=== PATIENT | female | born 1945 | race Caucasian/White ===

== ENCOUNTER → 2017-11-21 14:43 | Outpatient (CLI) | payer MEDICARE, OTHER, SELFPAY ==
[2017-11-21 15:10] LABS: Appearance Urine UA CLEAR; Bilirubin Urine UA NEGATIVE (NEGATIVE); Color Urine UA YELLOW; Glucose Urine UA NEGATIVE (Normal); Ketones Urine UA NEGATIVE (NEGATIVE); Leukocyte Esterase Urine UA 2+ (NEGATIVE); Nitrite Urine UA NEGATIVE (Negative); Occult Blood Urine UA 3+ (Negative); Protein Urine UA NEGATIVE (Negative); Specific Gravity Urine UA <=1.005 (1.000-1.035); Urobilinogen Urine UA 0.2 E.U./dL (0.2); pH Urine UA 5.5 (4.5-8.0)
[2017-11-21 15:25] LABS: Bacteria Urine Few (2-10); Culture Indicated Urine Specimen Cultured; RBC Urine 0-1/HPF (0-5/HPF); Squamous Epithelial Cell Urine 0-1 /HPF; WBC Urine 5-10/HPF (0-5/HPF)
== END ==
PROVIDERS: PCP Family Medicine; Visit Provider Family Medicine
DX: R30.0 Dysuria (principal)
CPT/HCPCS: 81001; 87077; 87086; 87186

== ENCOUNTER → 2018-02-23 15:38 | Outpatient (CLI) | payer MEDICARE, OTHER, SELFPAY ==
[2018-02-23 15:50] LABS: Bacteria Urine None Seen; RBC Urine None Seen (0-5/HPF); WBC Urine None Seen (0-5/HPF)
[2018-02-23 16:07] LABS: Add Manual Diff / Slide Review NO; Basophils Absolute Auto 100 /uL (0-100); Basophils Percent Auto 1.2 % (0-2); Eosinophils Absolute Auto 200 /uL (0-450); Eosinophils Percent Auto 2.8 % (2-4); Hematocrit 45.6 % (36-46); Hemoglobin 15.5 g/dL (12.0-16.0); Lymphocytes Absolute Auto 2400 /uL (1100-4500); Lymphocytes Percent Auto 28.5 % (25-40); Mean Corpuscular HGB Conc 33.9 % (30-36); Mean Corpuscular Hemoglobin 31.8 PG (26-34); Mean Corpuscular Volume 93.9 fL (80-100); Monocytes Absolute Auto 800 /uL (0-900); Monocytes Percent Auto 9.2 % (3-14); Neutrophils Absolute Auto 4800 /uL (1500-7000); Neutrophils Percent Auto 58.3 % (50-75); Platelet Count 251 X10^3/uL (150-400); Red Blood Cell Count 4.86 X10^6/uL (4.0-5.2); Red Cell Distribution Width 13.8 % (11.6-14.8); White Blood Cell Count 8.3 X10^3/uL (4.5-11.0)
[2018-02-23 16:19] LABS: Hemoglobin A1C% w Est Avg Glu 6.7 % (4.0-6.0)
[2018-02-23 16:32] LABS: Appearance Urine UA CLEAR; Bilirubin Urine UA NEGATIVE (NEGATIVE); Color Urine UA YELLOW; Glucose Urine UA NEGATIVE (Negative); Ketones Urine UA TRACE (NEGATIVE); Leukocyte Esterase Urine UA NEGATIVE (NEGATIVE); Nitrite Urine UA NEGATIVE (Negative); Occult Blood Urine UA NEGATIVE (Negative); Protein Urine UA TRACE (Negative); Specific Gravity Urine UA >=1.030 (1.000-1.035); Urobilinogen Urine UA 0.2 E.U./dL (0.2)
[2018-02-23 16:37] LABS: Blood Urea Nitrogen 24 mg/dL (7-17); Calcium 9.7 mg/dL (8.4-10.2); Carbon Dioxide 25 mmol/L (22-32); Chloride 104 mmol/L (98-107); Cholesterol 186 mg/dL (140-199); Estimated Glomerular Filt Rate > 60.0 mL/min (>60); Glucose 130 mg/dL (80-110); HDL Cholesterol 81 mg/dL (40-60); HEMOLYSIS < 15 (0-50); LDL Cholesterol Calculated 62 mg/dL (<100); Potassium 4.8 mmol/L (3.4-5.1); Sodium 138 mmol/L (137-145); Triglycerides 217 mg/dL (35-150)
[2018-02-23 16:54] LABS: Culture Indicated Urine Cult Not Indicated; Mucus Urine 2+ (Negative); Squamous Epithelial Cell Urine 5-10 /HPF
[2018-02-23 17:08] LABS: TSH w/ Reflex to FT4 0.53 uIU/mL (0.47-4.68)
== END ==
PROVIDERS: PCP Family Medicine; Visit Provider Family Medicine
DX: E03.9 Hypothyroidism, unspecified (principal); E78.5 Hyperlipidemia, unspecified; I10 Essential (primary) hypertension; E66.01 Morbid (severe) obesity due to excess calories; Z68.41 Body mass index [BMI] 40.0-44.9, adult; E11.8 Type 2 diabetes mellitus with unspecified complications
CPT/HCPCS: 36415; 80048; 80061; 81001; 83036; 84443; 85025

== ENCOUNTER → 2018-03-09 09:50 | Outpatient (CLI) | payer MEDICARE, OTHER, SELFPAY ==
--- NOTE | 2018-03-09 | DI.MRI.S_ITS ---
PROCEDURE: MR KNEE LT WO CON INDICATIONS: PRIMARY OSTEOARTHRITIS LEFT KNEE TECHNIQUE: Noncontrast sagittal PD fast spin echo and T2 fast spin echo with fat saturation, sagittal 3-D FLASH with fat saturation; coronal T1 spin echo and PD fast spin echo with fat saturation, and axial PD fast spin echo with fat saturation through the knee. COMPARISON: [facility], CR, CHEST 2 VIEW, 01/13/2011, 13:12. [facility], CR, XR KNEE ARTHRITIC SERIES BI, 02/22/2018, 10:38. FINDINGS: Image quality: Excellent. Menisci: There is a large defect in the body of the lateral meniscus likely related to prior meniscectomy. There is a small degenerative tear involving the free edge of the body of the medial meniscus. The meniscal root ligaments appear intact. Cruciate ligaments: The anterior and posterior cruciate ligaments appear intact. Medial structures: The medial collateral ligament appears intact. The semimembranosus tendon insertions and meniscocapsular junction appear intact. Visualized portions of the pes anserinus tendons appear normal. No abnormal bursal fluid. Lateral structures: The lateral collateral ligament and the biceps femoris tendon appear intact. The popliteus tendon appears normal. Iliotibial band appears normal. Anterior structures: The quadriceps and patellar tendons appear intact. Patellar alignment is normal. No femoral trochlear dysplasia or ventral trochlear prominence. No edema in the infrapatellar fat pad. Bones and cartilage: There is red marrow conversion contusion and distal femur and proximal tibia. No fractures. There is severe cartilage loss in the lateral femorotibial compartment and the patellofemoral compartment, as well as mild cartilage thinning and fibrillation of the medial femorotibial compartment. Joint space: There is small to moderate knee joint effusion. No Georges's cyst. Normal appearing synovial plicae are incidentally noted. IMPRESSION: 1. A large defect in the body of the lateral meniscus, likely related to prior meniscectomy. 2. Small degenerative tear involving the free edge of the body of the medial meniscus. 3. Severe cartilage loss of the lateral femorotibial compartment and patellofemoral compartment. 4. Small to moderate knee joint effusion. 5. There is red marrow conversion. This finding may be secondary to anemia. Please correlate clinically. Dictated by: Georges Louise M.D. on 03/09/2018 at 11:06 Transcribed by: CHRIS on 03/09/2018 at 11:13 Approved by: Georges Louise M.D. on 03/09/2018 at 18:20
--- NOTE | 2018-03-09 09:52 | DI.RAD.S_ITS ---
PROCEDURE: XR CHEST 2V INDICATIONS: shortness of breath TECHNIQUE: 2 views of the chest were acquired. COMPARISON: [facility], , CHEST 2 VIEW, 01/13/2011, 13:12. FINDINGS: Surgical changes and devices: None. Lungs and pleura: Lungs are clear. No pleural effusions or pneumothorax. Mediastinum: Mediastinal contours are normal. Heart size is normal. Bones and chest wall: No suspicious bony abnormalities. Soft tissues appear unremarkable. IMPRESSION: No acute cardiopulmonary disease. Dictated by: Georges Louise M.D. on 03/09/2018 at 16:01 Approved by: Georges Louise M.D. on 03/09/2018 at 16:01
== END ==
PROVIDERS: PCP Family Medicine; Visit Provider Orthopaedic Surgery
DX: M17.12 Unilateral primary osteoarthritis, left knee (principal); M23.232 Derangement of other medial meniscus due to old tear or injury, left knee; M25.462 Effusion, left knee; R06.00 Dyspnea, unspecified; R06.02 Shortness of breath
CPT/HCPCS: 71046; 73721

== ENCOUNTER → 2018-04-17 13:58 | Outpatient (CLI) | payer MEDICARE, OTHER, SELFPAY ==
--- NOTE | 2018-04-17 14:01 | DI.MG.S_ITS ---
BILATERAL DIGITAL SCREENING MAMMOGRAM 3D/2D WITH CAD POST LUMPECTOMY: 04/17/2018 CLINICAL: Routine screening. Personal history of breast cancer. Comparison is made to exams dated: 05/25/2017 mammogram, 01/14/2017 mammogram, 12/21/2016 mammogram, 12/28/2012 mammogram, 10/13/2010 mammogram, and 09/22/2009 mammogram - [facility]. The tissue of both breasts is heterogeneously dense. This may lower the sensitivity of mammography. Current study was also evaluated with a Computer Aided Detection (CAD) system. There are benign postoperative and posttreatment findings in the right breast. There is a 0.5 cm oval mass in the right breast at posterior depth central to the nipple that demonstrates a fatty hilum on tomosynthesis images consistent with a lymph node, and is stable in appearance to comparison exam of 10/13/2010. No significant masses, calcifications, or other findings are seen in either breast. There has been no significant interval change. IMPRESSION: There is no mammographic evidence of malignancy. A 1 year screening mammogram is recommended. This exam was interpreted at Station ID: [id number]. NOTE: For mammograms, a report in lay terms will be sent to the patient. Approximately 15% of breast malignancies will not be visualized mammographically. In the management of a palpable breast mass, a negative mammogram must not discourage biopsy of a clinically suspicious lesion. Electronically Signed By: Markie Whitehead M.D. ecl/:04/17/2018 23:12:33 copy to: Colleen Cleveland letter sent: Normal Exam ACR BI-RADS Category 2: Benign Finding(s) 3342F
== END ==
PROVIDERS: PCP Family Medicine; Visit Provider Family Medicine
DX: Z12.31 Encounter for screening mammogram for malignant neoplasm of breast (principal); Z85.3 Personal history of malignant neoplasm of breast
CPT/HCPCS: 77063; 77067

== ENCOUNTER 2018-05-16 08:42 | Inpatient (IN) | payer MEDICARE, OTHER, SELFPAY ==
[2018-05-08 12:51] VITALS: BMI 42.5
[2018-05-16] VITALS (19 sets, daily range): BP systolic 122–175; BP diastolic 52–93; PULSE 54–84; RESP 9–18; TEMP 35.8–36.6; O2SAT 88–100; BMI 42.5
--- NOTE | 2018-05-16 06:00 | DI.RAD.S_ITS ---
PROCEDURE: XR KNEE LT 1TO2V INDICATIONS: prosthesis placement, total left knee TECHNIQUE: 2 view(s) of the knee acquired. COMPARISON: [facility], ROSIE, KNEE 3V LEFT, 12/27/2014, 18:08. [facility], ROSIE, KNEE 1-2 VIEWS RIGHT, 12/09/2008, 9:44. FINDINGS: Bones: Patient is status post knee joint arthroplasty. Hardware components are in expected positions. Visualized bony structures are intact. Soft tissues: Overlying postoperative changes are noted. IMPRESSION: Normal alignment after left total knee arthroplasty. Dictated by: Navin Jaffe M.D. on 05/16/2018 at 14:28 Approved by: Navin Jaffe M.D. on 05/16/2018 at 14:29
[2018-05-16] MEDS: CELECOXIB 200 MG CAPSULE PO (08:59)
[2018-05-16] MEDS: LACTATED RINGERS 1,000 ML 42 ML IV ×2 (08:59→12:16)
[2018-05-16] MEDS: ACETAMINOPHEN 325 MG TABLET 975 MG PO ×3 (08:59→20:52)
[2018-05-16] MEDS: VANCOMYCIN 1,000 MG/200 ML FROZ.PIGGY 200 MG IV (09:27)
--- NOTE | 2018-05-16 10:25 | PM.PREOP ---
Pre-operative Note Interval Note History & Physical reviewed/Exam performed by Physician: Yes Changes to H&P: No
--- NOTE | 2018-05-16 10:25 | PM.OP.1 ---
Operative Date/Time/Diagnoses Date of procedure: 05/16/18 Time of procedure: 10:26 Pre-op diagnosis: left knee OA Post-op diagnosis: same Procedure & Clinicians Procedure: Left total knee replacement Same procedure as scheduled: Yes Indications: The patient has had progressively worsening left knee pain with radiographic changes consistent with arthritis. Non-operative management has failed and the patient has requested total knee replacement. The risks, benefits and alternatives to surgery were discussed with the patient prior to proceeding. Risks discussed included, but were not limited to, failure to relieve pain, stiffness, infection, nerve damage, deep venous thrombosis, pulmonary embolism, stroke, coma, heart attack, permanent paralysis and , as well as the potential need for eventual revision of the prosthetic. Surgeon: Phyllis Flores Trouble Shooting Mechanic: Nara Castano Anesthesia Type: General and Spinal Operative Notes Findings: Severe left knee osteoarthritis, good stability Closure Type: primary Specimen(s): none sent Prosthetic devices, grafts, tissues, transplants, or devices: Flores and Nephew size 3 femur, size 2 tibia, size +9 poly, 32 by 7-1/2 mm patella Applied: drain(s) Estimated Blood Loss (mL): 250 Blood products transfused: none Tourniquet time (min): 82 Procedure in detail: The patient was seen in the pre-operative area, where the patient identified the left knee as the operative site and this was marked with my initials. The patient received pre-operative antibiotics, and was taken to the operating room and placed on the operative table in the supine position. After satisfactory anesthesia, a time study technologist out was performed. The left leg was encircled with a tourniquet about the proximal thigh, and the leg was prepared from the toes to the tourniquet with ChloroPrep in the usual fashion and draped through sterile drapes. The leg was elevated and exsanguinated with Eschmark bandage and the tourniquet inflated to [250] mmHg pressure. The knee was approached through an approximately 18 cm incision centered over the patella and carried into the knee through a medial parapatellar arthrotomy. A Portion of the medial and lateral meniscus was resected. Soft tissue was carefully mobilized around the patella the patella was measured with a caliper. Bone was resected from the patella and the patellar height was reconstituted with up an appropriate sized patellar component. A cover was then placed on the patella. A small amount of additional medial and lateral meniscus was resected. The visionare guide fit well to the distal femur. It looked like an appropriate distal femoral cut and the cut was made without difficulty. The rotation was assessed and the appropriate size femoral guide was placed on the distal femur and finishing cuts were made. There was no evidence of notching. The anterior, posterior and chamfer cuts were then made. The posterior osteophytes and soft tissues were then removed. The posterior capsule was injected with part of a mixture of 60 ml 0.25% Marcaine mixed with 20 ml Exparel for post operative pain control. The remainder of this mixture was injected into the capsule and subcutaneous tissues during cement curing. The tibia was prepared and the visionaire guide fit well to the distal tibia. The rotation was assessed. The patient was placed in extension residual medial and lateral meniscus as well as any residual bone was carefully resected. [No] additional tibia was resected. Hemostasis was achieved especially posteriorly. Additional local was injected into the posterior capsule. The extension gap was assessed and additional releases for gap balancing were performed as necessary. The femoral component was trial was placed and the notch was finished. Trial tibial and femoral components were then placed and the knee placed through a range of motion. Range of motion was [0-130], with good stability throughout the range. The trials were then removed, and the tibia was finished. The bone was prepared with pulsatile lavage, and dried with a sponge. Cement was applied and the final prosthetics placed. Excess cement was removed during and after cement curing. A brief Betadine soak was performed. After confirming there was no extruded cement posteriorly, the final tibial insert was placed. The knee was copiously irrigated and the tourniquet deflated. Hemostasis was obtained with the bovie. A drain was placed and brought out superolaterally. The capsule was closed with interrupted Vicryl suture. The subcutaneous layer was closed with barbed sutures, and the skin with a running 3-0 V-Lock suture and Surgical glue. An Oliva dressing was applied and the patient was taken to recovery having tolerated the procedure well. Complications: none Condition: stable Disposition: Acute Care Plan for aftercare: The patient will be maintained on a standard total knee replacement protocol with weight bearing as tolerated. The patient will receive aspirin and sequential compression devices for DVT prophylaxis. The patient will be discharged home when safe for the home environment.
[2018-05-16] MEDS: CEFAZOLIN 2 GM/100 ML FROZ.PIGGY IV ×2 (10:56→19:48)
--- NOTE | 2018-05-16 11:28 | SUR.OPER ---
Supine on padded OR bed. Pillow under head, arms secured on padded armboards <90 degree abduction. Safety belt across torso. Non-operative leg secured with tape over blanket over lower leg. Operative leg secured in DeMayo/Tong positioner. Foam padded brace at thigh of operative leg.
[2018-05-16] MEDS: BUPIVACAINE 0.25% W/ EPI 30 ML VIAL 60 ML INJ (11:37)
[2018-05-16] MEDS: BUPIVACAINE LIPOSOME 266 MG/20 ML VIAL INJ (11:39)
[2018-05-16] MEDS: TRANEXAMIC ACID 1,000 MG VIAL 1000 MG INJ ×2 (11:40→12:46)
[2018-05-16] MEDS: POVIDONE-IODINE 15 ML, SODIUM CHLORIDE 0.9% 250 ML TOP (11:41)
--- NOTE | 2018-05-16 14:11 | SUR.PHASEI ---
Report called to Ronna
--- NOTE | 2018-05-16 14:25 | SUR.PHASEI ---
Pt transferred to the floor on 1lo2 by nc, with belongings bag. Report given to Ronna. VS stable. IV saline locked. Dressings and drain checked with RN. Family present.
[2018-05-16] MEDS: LACTATED RINGERS 1,000 ML 125 ML IV (15:25)
[2018-05-16] MEDS: OXYCODONE IR 5 MG TABLET PO (16:23)
[2018-05-16] MEDS: GABAPENTIN 600 MG TABLET PO ×2 (17:21→20:54)
[2018-05-16] MEDS: METFORMIN HCL 500 MG TABLET 250 MG PO (17:21)
[2018-05-16] MEDS: hydrOXYzine pamoate 25 MG CAPSULE PO (17:32)
--- NOTE | 2018-05-16 17:38 | PT.IIE ---
Current Diagnoses Unilateral primary osteoarthritis, left knee (05/16/18) Surgery Performed Operation Date: 05/16/18 10:45 Actual Procedures p Total Knee Arthroplasty(Left) - Phyllis Flores MD Surgical History (Last Reviewed 05/11/18 @ 20:18 by Sharyn Cleveland MD) History of arthroplasty of right knee (Acute) History of arthroscopy of both knees (Acute) History of lumpectomy of right breast (Acute) Hx of appendectomy (Acute) Hx of eye surgery (Acute ~07/2015) Hx of oophorectomy (Acute) Hx of tonsillectomy (Acute) Status post Mohs surgery (Acute) Status post bilateral cataract extraction (Acute ~2014) Status post surgery (09/17/16) Medical History (Last Reviewed 05/11/18 @ 20:18 by Sharyn Cleveland MD) Idiopathic peripheral autonomic neuropathy, unspecified (Chronic 08/28/10) GERD (gastroesophageal reflux disease) (Chronic 08/28/10) Colon polyps (Resolved 08/28/10) Endometrial hyperplasia (Resolved) Ductal carcinoma in situ (DCIS) of right breast (Resolved) Hyperlipidemia (Chronic 08/28/10) Acquired hypothyroidism (Chronic 08/28/10) 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) Essential hypertension (Chronic 11/25/14) Morbid obesity with body mass index (BMI) of 40.0 to 44.9 in adult (Chronic 11/25/14) Back pain (Acute) Chronic bronchitis (Acute) Former smoker, stopped smoking many years ago (Acute) History of hysteroscopy (Acute) Ovarian cyst (Acute) Peripheral edema (Acute) Peripheral neuropathy (Acute) KENNA (stress urinary incontinence, female) (Acute) Sciatica (Acute) Physical Therapy Inpatient Evaluation/Re-Eval M1 PT/OT-IP Prior Functional Status Start: 05/16/18 16:56 Freq: NEEDED Status: Active Protocol: Document 05/16/18 17:20 JEANNETTE (Rec: 05/16/18 17:38 JEANNETTE [id number]) Medical Review Prior Functional Status Medical History Reviewed Yes Diet/Fluid Consistency Regular Communication Oriented x 3 Mobility and Gait Indep with ability to amb > a block with the use of FWW. Single fall in the last six months due to missed steps Activities of Daily Living and IADL's Indep Social History Household Members spouse Living Arrangements Apartment/Condo Number of Stairs To Enter/Railing? Single step with no rail Home Equipment Front Wheel Walker Straight Cane Bedside Commode Employment Status Retired M2 PT-IP Current Condition Start: 05/16/18 16:56 Freq: NEEDED Status: Active Protocol: Document 05/16/18 17:20 EA (Rec: 05/16/18 17:38 EA [id number]) Physical Therapy Current Condition Current Condition Evaluation Date 05/16/18 Treatment Diagnosis s/p L TKA 05/16/18 Onset Date 05/16/18 Weight Bearing Status Weight Bearing Status Weight Bear as Tolerated M3 PT-IP Subjective Start: 05/16/18 16:56 Freq: NEEDED Status: Active Protocol: Document 05/16/18 17:20 EA (Rec: 05/16/18 17:38 EA [id number]) Subjective Physical Therapy Visit Type Type Initial Evaluation Visit Start Time 16:45 Visit Stop Time 17:30 Total Visit Minutes 45 Physical Therapy Visit Comments Patient Comments Patient reports would like to stay initially at SNF as her requires help due to PD condition; states her friend from other states will come over and help her on 05/25. Patient Goals Patient would like to get as much as independent at least prior to discharge. Therapy Pain Assessment Pain When Pain Assessed At Rest Pain Present Pain Present Pain Reported Location Left Knee Intensity 2 Scale Used Numeric (1 - 10) Description Acute M4 PT-IP Mobility and Gait Start: 05/16/18 16:56 Freq: NEEDED Status: Active Protocol: Document 05/16/18 17:20 EA (Rec: 05/16/18 17:38 EA [id number]) PT-Bed Mobility Assessment Supine to Sit Supine to Sit Minimal Assistance Sit to Supine Sit to Supine Minimal Assistance Scooting Scooting to Edge of Bed Contact Guard Assistance PT-Transfer Assessment Sit to and From Stand Sit to and from Stand Minimal Assistance Equipment Transfer Assistive Device Gait Belt Front Wheeled Walker Transfers Transfer Destination Bed Chair Transfer Technique stepping Transfer Ability Level of Assist Minimal Assistance Comments Mobility Comments Requires verbal cues during transfer. Gait Assessment Gait Gait Assistance Required: Contact Guard Assist Distance (Feet) 10 Able to Maintain Weight Bearing Status Yes During Gait Assistive Devices Assistive Device Front Wheeled Walker Orthotic/Prosthetic Devices or Brace: No Gait Deviations General Gait Pattern Antalgic Step-to Gait Factors Limiting Gait Function Factors Limiting Gait Function Decreased Activity Tolerance Decreased Strength Limited Range of Motion Pain Comments Gait Comments Requires cues for proper gait (3pnt pattern) PT-Balance Assessment Sitting Balance and Reactions Static Sitting Balance Ability Good Dynamic Sitting Balance Ability Good Standing Balance and Reactions Static Standing Balance Ability Good Dynamic Standing Balance Ability Fair M5 PT-IP Objective Assessments Start: 05/16/18 16:56 Freq: NEEDED Status: Active Protocol: Document 05/16/18 17:20 EA (Rec: 05/16/18 17:38 EA [id number]) Orientation Orientation/Cognition Level of Alertness Alert Orientation Name Age Language Function Ability No Deficits Noted Safety Awareness Understands Safety Issues Memory Description No Deficits Noted Gross Range of Motion Upper Extremity ROM Assessment Within Functional Limits Lower Extremity ROM Assessment Left Impaired Impairments at least 0-90 F/E on left knee Strength Upper Extremity Strength Assessment Within Functional Limits Wrist R wrist w/ CTS Lower Extremity Strength Assessment Left Impaired Knee Left knee with at least 3-/5 flexion/extension Coordination Assessment Gross Coordination Gross Coordination WNL Assessment Finger to Nose Test Normal Performance Pronation/Supination Test Normal Performance Sensation Assessment Sensation Gross Sensation WNL Muscle Tone Comments Muscle Tone Comments Muscle guarding to left quads and hamstring M6 PT-IP Treatment Start: 05/16/18 16:56 Freq: NEEDED Status: Active Protocol: Document 05/16/18 17:20 EA (Rec: 05/16/18 17:38 EA [id number]) Physical Therapy Treatment Exercises Exercises Ankle Pumps Gluteal Sets Quad Sets Heel Slides Straight Leg Raises Short Arc Quads Passive Knee Extension Hang Seated Knee Flexion/Extension Education Education Provided Precautions Weight Bearing Status Post-Op Packet Safety M7 PT-IP Assessment and Plan Start: 05/16/18 16:56 Freq: NEEDED Status: Active Protocol: Document 05/16/18 17:20 EA (Rec: 05/16/18 17:38 EA [id number]) PT Summary Assessment and Plan Potential Rehabilitation Potential Good Status of Condition at Evaluation Stable Summary Impairments Pain ROM Strength Balance Bed Mobility Transfers Gait Activity Tolerance Assessment Summary Pt demonstrates difficulty with transfers and mobility due to decreased tolerance, left knee pain, and decreased strength to left LLE. Patient requires assistance in all functional transfers and mobility for safety at this time. She would greatly benefit to skilled PT prior to discharge in SNF. Goals Bed Mobility Goal Independent Transfer Goal Independent Gait Goal Standby Assistance Gait Distance 50 Days to Meet Goals 3 Frequency of Treatment Frequency Of Treatment Twice a Day Treatment Plan Physical Therapy Treatment Plan Bed Mobility Training Transfer Training Gait Training Therapeutic Exercise Post Op Education Discharge Planning Hot or Cold Pack Recommendations To Nursing Amount of Assist Needed 1 Person Assist Discharge Recommendations PT Discharge Recommendations SNF Rehab
--- NOTE | 2018-05-16 18:33 | PC.NURSE ---
Evening Shift Note: Pt received laying in bed, sleeping but easily arousable. Pt complained of pain in L leg, 3-4/10. Given 5 mg oxycodone, also complaining of itching, given 25 mg po vistiril. Pt with CMS intact in LLE. Able to lift leg off of bed. Pt able to stand and transfer to commode, then walked across room with PT to chair. Pt now sitting up in chair, tolerating carb consistent diet. Pt voiding adequate volume. Will continue to monitor, notify MD with changes.
[2018-05-16] MEDS: DOCUSATE 100 MG CAPSULE PO (20:54)
[2018-05-16] MEDS: ASCORBIC ACID 500 MG TABLET PO (20:54)
[2018-05-16] MEDS: ASPIRIN EC 81 MG TABLET PO (20:54)
[2018-05-17] VITALS (7 sets, daily range): BP systolic 121–162; BP diastolic 47–88; PULSE 67–80; RESP 16–20; TEMP 36.3–36.8; O2SAT 92–97
[2018-05-17] MEDS: LACTATED RINGERS 1,000 ML 125 ML IV (03:20)
[2018-05-17] MEDS: CEFAZOLIN 2 GM/100 ML FROZ.PIGGY IV (03:20)
[2018-05-17] MEDS: hydrOXYzine pamoate 25 MG CAPSULE PO (03:27)
[2018-05-17] MEDS: OXYCODONE IR 5 MG TABLET PO ×5 (03:27→17:50)
[2018-05-17 05:51] LABS: Hematocrit 37.1 % (36-46); Hemoglobin 12.8 g/dL (12.0-16.0)
[2018-05-17] MEDS: LEVOTHYROXINE 112 MCG TABLET PO (07:13)
--- NOTE | 2018-05-17 07:28 | PM.PNPO.1 ---
Subjective Date Patient Seen: 05/17/18 Time Patient Seen: 07:29 Interval history: Patient's pain is moderate. Denies fever chills. No nausea vomiting. She denies shortness of breath or chest pain. She was up yesterday with physical therapy once walking in the room for short period of time. she has been using bedside commode. Exam Vital Signs (past 8 hours): - 05/16/18 23:50 05/17/18 00:00 05/17/18 03:46 Temperature 97.6 F Pulse Rate 63 Respiratory Rate 16 Blood Pressure 150/74 H Pulse Oximetry 97 96 97 05/17/18 04:30 Temperature 97.5 F L Pulse Rate 67 Respiratory Rate 16 Blood Pressure 161/82 H Pulse Oximetry 94 Oxygen Delivery Method Room Air Oxygen Flow Rate 0 Narrative Exam Narrative: Oliva dressing is on and functioning. Dressing is clean, dry and intact. Sensation grossly intact to light touch distal lower extremities. Motor functions intact. Legs are warm and dry. Objective Labs Result Diagrams: 05/17/18 05:27 Labs: Laboratory Results - last 24 hr 05/17/18 05:27 Hgb 12.8 Hct 37.1 Assessment & Plan Post-op Postoperative Procedures Operation Date: 05/16/18 10:45 Actual Procedures Side Surgeon p Total Knee Arthroplasty Left Phyllis Flores MD postop day 1 status post left total knee arthroplasty. Patient progressing as expected. mobilize with physical therapy. Quality VTE Deep Vein Thrombosis/Pulmonary Embolism Present on Admission: No
[2018-05-17] MEDS: AMLODIPINE 5 MG TABLET PO (08:02)
[2018-05-17] MEDS: DULOXETINE 30 MG CAPSULE 60 MG PO (08:02)
[2018-05-17] MEDS: ACETAMINOPHEN 325 MG TABLET 975 MG PO ×3 (08:02→20:30)
[2018-05-17] MEDS: MELOXICAM 7.5 MG TABLET 15 MG PO (08:02)
[2018-05-17] MEDS: METFORMIN HCL 500 MG TABLET 250 MG PO ×2 (08:03→16:17)
[2018-05-17] MEDS: ASPIRIN EC 81 MG TABLET PO ×2 (08:03→20:31)
[2018-05-17] MEDS: ASCORBIC ACID 500 MG TABLET PO ×2 (08:03→20:31)
[2018-05-17] MEDS: DOCUSATE 100 MG CAPSULE PO ×2 (08:03→20:31)
[2018-05-17] MEDS: GABAPENTIN 600 MG TABLET PO ×4 (08:03→20:31)
--- NOTE | 2018-05-17 11:30 | PT.IPTN ---
Current Diagnoses Unilateral primary osteoarthritis, left knee (05/16/18) Surgery Performed Operation Date: 05/16/18 10:45 Actual Procedures p Total Knee Arthroplasty(Left) - Phyllis Flores MD Physical Therapy Treatment Note M2 PT-IP Current Condition Start: 05/16/18 16:56 Freq: NEEDED Status: Active Protocol: Document 05/16/18 17:20 EA (Rec: 05/16/18 17:38 EA [id number]) Physical Therapy Current Condition Current Condition Evaluation Date 05/16/18 Treatment Diagnosis s/p L TKA 05/16/18 Onset Date 05/16/18 Weight Bearing Status Weight Bearing Status Weight Bear as Tolerated M3 PT-IP Subjective Start: 05/16/18 16:56 Freq: NEEDED Status: Active Protocol: Document 05/17/18 11:09 SA (Rec: 05/17/18 11:30 SA [id number]) Subjective Physical Therapy Visit Type Type Treatment Note Visit Start Time 09:05 Visit Stop Time 09:36 Total Visit Minutes 31 Number of [place] PAINTER Visits 1 Physical Therapy Visit Comments Patient Comments Pt notes increased pain today, had pain meds 1hour before PT with pt rating pain at rest as 3/10. Agreeable to PT this AM. Therapy Pain Assessment Pain When Pain Assessed During Mobility Pain Present Pain Present Pain Reported Location Left Knee Intensity 7 Scale Used Numeric (1 - 10) Description Acute M4 PT-IP Mobility and Gait Start: 05/16/18 16:56 Freq: NEEDED Status: Active Protocol: Document 05/17/18 11:09 SA (Rec: 05/17/18 11:30 SA [id number]) PT-Transfer Assessment Sit to and From Stand Sit to and from Stand Contact Guard Assistance Equipment Transfer Assistive Device Gait Belt Front Wheeled Walker Orthotic/Prosthetic Devices or Brace: No Transfers Transfer Destination Chair Toilet Transfer Technique Stand Step Pivot Transfer Ability Level of Assist Contact Guard Assistance 1 Person Assistance Comments Mobility Comments Sit to stands and transfers with CGA and use of FWW safely , cues to increase WBing through LLE. Gait Assessment Gait Gait Assistance Required: Contact Guard Assist Distance (Feet) 30 Able to Maintain Weight Bearing Status Yes During Gait Assistive Devices Assistive Device Gait Belt Front Wheeled Walker Orthotic/Prosthetic Devices or Brace: No Gait Deviations General Gait Pattern Antalgic Decreased Stride Length Decreased Feet Clearance Factors Limiting Gait Function Factors Limiting Gait Function Decreased Activity Tolerance Decreased Strength Limited Range of Motion Pain Comments Gait Comments PT limits WBing through LLE and WBs heavily through UEs, able to partially correct wit hcues but needs increased practice to improve gait. PT-Balance Assessment Sitting Balance and Reactions Static Sitting Balance Ability Good Dynamic Sitting Balance Ability Good M5 PT-IP Objective Assessments Start: 05/16/18 16:56 Freq: NEEDED Status: Active Protocol: Document 05/16/18 17:20 EA (Rec: 05/16/18 17:38 EA [id number]) Orientation Orientation/Cognition Level of Alertness Alert Orientation Name Age Language Function Ability No Deficits Noted Safety Awareness Understands Safety Issues Memory Description No Deficits Noted Gross Range of Motion Upper Extremity ROM Assessment Within Functional Limits Lower Extremity ROM Assessment Left Impaired Impairments at least 0-90 F/E on left knee Strength Upper Extremity Strength Assessment Within Functional Limits Wrist R wrist w/ CTS Lower Extremity Strength Assessment Left Impaired Knee Left knee with at least 3-/5 flexion/extension Coordination Assessment Gross Coordination Gross Coordination WNL Assessment Finger to Nose Test Normal Performance Pronation/Supination Test Normal Performance Sensation Assessment Sensation Gross Sensation WNL Muscle Tone Comments Muscle Tone Comments Muscle guarding to left quads and hamstring M6 PT-IP Treatment Start: 05/16/18 16:56 Freq: NEEDED Status: Active Protocol: Document 05/17/18 11:09 SA (Rec: 05/17/18 11:30 SA [id number]) Physical Therapy Treatment Exercises Exercises Ankle Pumps Gluteal Sets Quad Sets Heel Slides Straight Leg Raises Short Arc Quads Passive Knee Extension Hang Seated Knee Flexion/Extension Education Education Provided Precautions Weight Bearing Status Post-Op Packet Safety M7 PT-IP Assessment and Plan Start: 05/16/18 16:56 Freq: NEEDED Status: Active Protocol: Document 05/17/18 11:09 SA (Rec: 05/17/18 11:30 SA [id number]) PT Summary Assessment and Plan Potential Rehabilitation Potential Good Status of Condition at Evaluation Stable Summary Assessment Summary Pt with increased knee pain today but improving gait and transfer ability and uses FWW safely. Plan to attempt single step this afternoon. Goals Days to Meet Goals 3 Frequency of Treatment Frequency Of Treatment Twice a Day Treatment Plan Physical Therapy Treatment Plan Bed Mobility Training Transfer Training Gait Training Therapeutic Exercise Post Op Education Discharge Planning Hot or Cold Pack Recommendations To Nursing Amount of Assist Needed 1 Person Assist Discharge Recommendations PT Discharge Recommendations SNF Rehab
[2018-05-17] MEDS: SENNOSIDES 8.6 MG TABLET PO ×2 (11:42→20:30)
--- NOTE | 2018-05-17 13:37 | CM.DANOTE ---
Discharge Planning/Care Management: DCP: assessment: case received and discussed in Team Rounds. Met now with pt and her Randy. Introduced self and role. Pt is a 72 year old female who admitted yesterday for a planned TKA. Surgeon: Dr. Flores PCP: Dr. Ponce. She says she had the other knee done years ago and both were very painful. Payer: Medicare and [facility] INPT admission status: confirmed by KYUNG Meek. Pt states she is planning a snf rehab stay before she goes home and the orthopedic team is aware of this. She states she needs to be functionally independent with basic abilities before she returns home as her has Parkinson's disease and is unable to assist her. SNF choice list: given: decision: [facility]: referral: [facility] via vm and efax...will await reponse. P: [facility] when stable for same 05/19 or> Need: [facility] will follow Discharge Assessment Start: 05/17/18 13:35 Freq: Status: Active Protocol: Document 05/17/18 13:35 ITV (Rec: 05/17/18 13:37 ITV [id number]) Discharge Planning Assessment Advance Directives? No: Information mailed to patient History Provided By Patient Medical Record Prior Living Arrangements Apartment/Condo Household Members spouse Comment spouse has Parkinson's disease Independent with ADL's Yes: limited by knee pain Is patient alert and oriented? Yes If patient plan is SNF: Has PASSR been will complete prior to dc completed? Comment INPT admission status/ confirmed by KYUNG Meek: 05/16 Medicare Choice List Provided Yes SNF/HH Preference [facility] Has Agency SNF been contacted Yes Whiteboard Updated in Patient Room with Yes name and ext. # of Underground Mine Superintendent Review Status In Process Next Review Type Continued Stay Review Pre-Anesthesia Assessment Start: 05/08/18 12:51 Freq: Status: Complete Protocol: Document 05/08/18 12:51 CAB (Rec: 05/08/18 13:44 CAB [id number]) Pre-Anesthesia Assessment Patient Information Reviewed Via Phone Assessment Assessment Completed With Patient Diagnostic Results BMP/CMP CBC Primary Care Provider Ingrid Ponce Seen Specialist in Last 12 Months Yes Specialist Seen Oncologist Orthopedist Other Comment Neuro surgeon Primary Language [place] Merchandise Distributor Required No Height 161.29 cm Weight 110.677 kg Body Mass Index (BMI) 42.5 Hearing Ability Normal Visual Assist Magnifying Glass Dentition Type Teeth, Natural Present Barriers to Learning None Other Aids No Hx Anesthesia Reactions Yes: Occasional nausea, vomiting post-op Hx Family Anesthesia Reaction No Hx Malignant Hyperthermia No Hx Blood Transfusions No Anesthesia Review Requested No Grinder Operator External Tool Yes: has parkinson's, pt wants to dc to snf alcohol intake current alcohol intake frequency a few times a month Smoking Status Former smoker Tobacco type cigarettes how long ago did patient quit smoking Quit 1976 Substance Use Type does not use Pain Present Pain Reported Musculoskeletal Symptoms Abnormal Gait Back Pain Difficulty Walking Joint Pain Muscle Cramps Muscle Weakness Numbness History of Falling (Recent or History of Yes ) Patient is completely paralyzed or No completely immobile Prosthesis or Orthotic Device Cane Front Wheel Walker Mental Status Oriented to own ability Is patient on oxygen? No Does patient have PATTERSON/SOB Yes: A little w/activity, no sob when in pool Hx Sleep Apnea No Currently Taking a Beta Sly No Can You Climb a Flight of Stairs Without No SOB Hx Chest Pain No Hx SOB Yes: A little w/activity, no sob when in pool Hx Syncope or Dizziness No Anti-Coagulant Therapy No Has a Apprentice Plant Attendant No Cardiac Testing No Hx Pacemaker/ICD No Pacemaker Rep Required? No Cardiac Clearance Received Not Applicable Diet Type At Home Regular Diabetic dysphagia No Bladder Pattern Incontinent Urgency Urinary Catheter Present No Hx Urinary Self Catheterization No Diabetes Yes: Does not check blood sugars at home HgbA1C 6.7 Date 02/23/18 Patient No Lactating No Hx Drug Resistant Organism No Presence of External or Internal Medical Yes: Hardware in right knee Devices Have you traveled outside the [facility] in the last 30 days? Marital Status Lives With spouse Prior Living Arrangements Apartment/Condo Support System Friend(s) Spouse Patient Discharge Plan Description Senior Living Facility/Rehab Comment has parkinson's Feels Safe in Current Environment Yes Been Physically Hurt or Threatened By a No Person in Current Environment Do you have thoughts of harming yourself None or others? Are you currently considering suicide? No Do you have a plan to hurt yourself or No Plan others? Do You Have Any Spiritual Beliefs That No May Affect Your HC Choices? Do You Have Any Cultural Practices That No May Affect Your HC Choices? Comment Episcopal Who Can We Speak to About Patient's Care Family, friends Identifying Code for Release of Patient Declines to issue Information Health Care Proxy/Next of Kin Shaggy ()Ronna ( daughter) Health Care Proxy Phone Number Shaggy: [phone], Ronna: [phone] Emergency Contact Name Shaggy ()Ronna ( daughter) Emergency Contact Phone Number Shaggy: [phone], Ronna: Advance Directives? No: Information mailed to patient Requested Patient Bring Advanced Yes Directives DOS PAC Instructions Do not shave/clip surgical site Durable medical equipment Medications to take/avoid Nasal antibiotic No ETOH/petroleum product on skin DOS NPO Post-op transportation Pre-surgical wash Sturdy shoes/comfortable clothes Do not bring valuables and remove jewelry
--- NOTE | 2018-05-17 14:27 | PT.IPTN ---
Current Diagnoses Unilateral primary osteoarthritis, left knee (05/16/18) Surgery Performed Operation Date: 05/16/18 10:45 Actual Procedures p Total Knee Arthroplasty(Left) - Phyllis Flores MD Physical Therapy Treatment Note M2 PT-IP Current Condition Start: 05/16/18 16:56 Freq: NEEDED Status: Active Protocol: Document 05/16/18 17:20 EA (Rec: 05/16/18 17:38 EA [id number]) Physical Therapy Current Condition Current Condition Evaluation Date 05/16/18 Treatment Diagnosis s/p L TKA 05/16/18 Onset Date 05/16/18 Weight Bearing Status Weight Bearing Status Weight Bear as Tolerated M3 PT-IP Subjective Start: 05/16/18 16:56 Freq: NEEDED Status: Active Protocol: Document 05/17/18 14:18 SA (Rec: 05/17/18 14:27 SA [id number]) Subjective Physical Therapy Visit Type Type Treatment Note Visit Start Time 13:15 Visit Stop Time 13:45 Total Visit Minutes 30 Number of RECORD CENTER COORDINATOR Visits 2 Physical Therapy Visit Comments Patient Comments Feeling a little better this afternoon. Patient Goals To d/c SNF for continued rehab prior to returning home to care for with Parkinsons. Therapy Pain Assessment Pain When Pain Assessed During Mobility Pain Present Pain Present Pain Reported Location Left Knee Intensity 6 Scale Used Numeric (1 - 10) Description Acute Pain Management Techniques Apply Cold Re-positioning Timing of Activity with Medications M4 PT-IP Mobility and Gait Start: 05/16/18 16:56 Freq: NEEDED Status: Active Protocol: Document 05/17/18 14:18 SA (Rec: 05/17/18 14:27 SA [id number]) PT-Bed Mobility Assessment Sit to Supine Sit to Supine Contact Guard Assistance Scooting Scooting to Edge of Bed Standby Assistance Scooting Up and Down in Bed Standby Assistance PT-Transfer Assessment Sit to and From Stand Sit to and from Stand Contact Guard Assistance Equipment Transfer Assistive Device Gait Belt Front Wheeled Walker Orthotic/Prosthetic Devices or Brace: No Transfers Transfer Destination Bed Bedside Commode Transfer Technique Stand Step Pivot Transfer Ability Level of Assist Contact Guard Assistance 1 Person Assistance Comments Mobility Comments Pt able to clear LLE over EOB for sit to supine with use of gait belt around foot, SBA with cues. CGA with transfers and FWW. NSG removed drain prior to PT session. Gait Assessment Gait Gait Assistance Required: Contact Guard Assist Distance (Feet) 50 Able to Maintain Weight Bearing Status Yes During Gait Assistive Devices Assistive Device Gait Belt Front Wheeled Walker Orthotic/Prosthetic Devices or Brace: No Gait Deviations General Gait Pattern Antalgic Decreased Stride Length Decreased Feet Clearance Factors Limiting Gait Function Factors Limiting Gait Function Decreased Activity Tolerance Decreased Strength Limited Range of Motion Pain Comments Gait Comments PT with slow, antalgic gait and limited WBing through LLE. Cues for upright posture and decreased UE WBing. Fatigues rapidly. Stair Climbing Assessment Evaluation Level of Assist On Stairs Contact Guard Assistance Devices Stair Climbing Assistive Devices Front Wheel Walker Technique/Endurance Stair Climbing Direction Ascend and Descend Stair Climbing Technique Step to Step Number of Steps Climbed 1 Query Text: Stair Climbing Set # Repetitions (reps) 1 Comments Stair Climbing Comments Pt able to ascend/descend singel step with FWW and CGA, cues for safe technique. PT-Balance Assessment Sitting Balance and Reactions Static Sitting Balance Ability Good Dynamic Sitting Balance Ability Good M5 PT-IP Objective Assessments Start: 05/16/18 16:56 Freq: NEEDED Status: Active Protocol: Document 05/16/18 17:20 EA (Rec: 05/16/18 17:38 EA [id number]) Orientation Orientation/Cognition Level of Alertness Alert Orientation Name Age Language Function Ability No Deficits Noted Safety Awareness Understands Safety Issues Memory Description No Deficits Noted Gross Range of Motion Upper Extremity ROM Assessment Within Functional Limits Lower Extremity ROM Assessment Left Impaired Impairments at least 0-90 F/E on left knee Strength Upper Extremity Strength Assessment Within Functional Limits Wrist R wrist w/ CTS Lower Extremity Strength Assessment Left Impaired Knee Left knee with at least 3-/5 flexion/extension Coordination Assessment Gross Coordination Gross Coordination WNL Assessment Finger to Nose Test Normal Performance Pronation/Supination Test Normal Performance Sensation Assessment Sensation Gross Sensation WNL Muscle Tone Comments Muscle Tone Comments Muscle guarding to left quads and hamstring M6 PT-IP Treatment Start: 05/16/18 16:56 Freq: NEEDED Status: Active Protocol: Document 05/17/18 14:18 SA (Rec: 05/17/18 14:27 SA [id number]) Physical Therapy Treatment Exercises Exercises Ankle Pumps Quad Sets Heel Slides Short Arc Quads Seated Knee Flexion/Extension Education Education Provided Precautions Weight Bearing Status Post-Op Packet Safety M7 PT-IP Assessment and Plan Start: 05/16/18 16:56 Freq: NEEDED Status: Active Protocol: Document 05/17/18 14:18 SA (Rec: 05/17/18 14:27 SA [id number]) PT Summary Assessment and Plan Potential Rehabilitation Potential Good Status of Condition at Evaluation Stable Summary Assessment Summary Pt able to manage single step with CGA and use of FWW, fatigues rapidly with ambulation and needs cues for posture and normalizing gait. Frequency of Treatment Frequency Of Treatment Twice a Day Treatment Plan Physical Therapy Treatment Plan Bed Mobility Training Transfer Training Gait Training Therapeutic Exercise Post Op Education Discharge Planning Hot or Cold Pack Recommendations To Nursing Amount of Assist Needed 1 Person Assist Discharge Recommendations PT Discharge Recommendations SNF Rehab
[2018-05-17] MEDS: OXYCODONE IR 5 MG TABLET 10 MG PO (20:30)
[2018-05-18 01:25] VITALS: BP 135/64; PULSE 73; RESP 16; TEMP 36.9; O2SAT 100
[2018-05-18] MEDS: OXYCODONE IR 5 MG TABLET PO ×5 (01:52→19:39)
[2018-05-18 06:04] VITALS: BP 156/64; PULSE 78; RESP 18; TEMP 37.2; O2SAT 93
[2018-05-18] MEDS: LEVOTHYROXINE 112 MCG TABLET PO (06:19)
[2018-05-18 07:45] VITALS: O2SAT 95
[2018-05-18 08:00] VITALS: BP 136/68; PULSE 84; RESP 16; TEMP 37.8; O2SAT 94
[2018-05-18] MEDS: DULOXETINE 30 MG CAPSULE 60 MG PO (08:19)
[2018-05-18] MEDS: METFORMIN HCL 500 MG TABLET 250 MG PO ×2 (08:20→16:44)
[2018-05-18] MEDS: AMLODIPINE 5 MG TABLET PO (08:20)
[2018-05-18] MEDS: ASPIRIN EC 81 MG TABLET PO ×2 (08:20→20:35)
[2018-05-18] MEDS: DOCUSATE 100 MG CAPSULE PO ×2 (08:20→20:35)
[2018-05-18] MEDS: ASCORBIC ACID 500 MG TABLET PO ×2 (08:21→20:35)
[2018-05-18] MEDS: ACETAMINOPHEN 325 MG TABLET 975 MG PO ×3 (08:21→20:34)
[2018-05-18] MEDS: MELOXICAM 7.5 MG TABLET 15 MG PO (08:21)
[2018-05-18] MEDS: GABAPENTIN 600 MG TABLET PO ×4 (08:21→20:35)
[2018-05-18] MEDS: SENNOSIDES 8.6 MG TABLET PO ×2 (08:22→20:35)
[2018-05-18] MEDS: POLYETHYLENE GLYCOL 3350 17 GM POWD.PACK PO (08:23)
--- NOTE | 2018-05-18 10:16 | PM.PNPO.1 ---
Subjective Date Patient Seen: 05/18/18 Time Patient Seen: 10:17 Interval history: Hospital day 3, postop day 2 following left total knee arthroplasty. patient remained stable postoperatively. Did do well with PT yesterday. Having some increased pain today. patient is anticipating going to SNF. Her is at home but has Parkinson's and dementia and not able to care for her. Exam Vital Signs (past 8 hours): - 05/18/18 06:04 05/18/18 08:00 Temperature 99 F 100.1 F H Pulse Rate 78 84 Respiratory Rate 18 16 Blood Pressure 156/64 H 136/68 Pulse Oximetry 93 94 Oxygen Delivery Method Room Air Oxygen Flow Rate 0 Narrative Exam Narrative: Alert, oriented no acute distress sitting in chair. Legs. Deandre wrap and dressing to left knee is dry without drainage or inflammation. Hemovac is out. no calf pain or swelling. Pulses symmetrical. Objective Labs Result Diagrams: 05/17/18 05:27 Assessment & Plan Post-op Postoperative Procedures Operation Date: 05/16/18 10:45 Actual Procedures Side Surgeon p Total Knee Arthroplasty Left Phyllis Flores MD Plan: Patient will work with PT again today. will also start OT. Anticipate discharge to [facility] tomorrow if she is stable. Quality VTE Deep Vein Thrombosis/Pulmonary Embolism Present on Admission: No
--- NOTE | 2018-05-18 10:43 | CM.DPC ---
DCP: continued: [facility] has confirmed they do have a bed for pt and will hold it for her in anticipation of likely d/c tomorrow. Will update pt. Discussed in Team Rounds with virgilio Parra: OT order is obtained.
[2018-05-18] MEDS: OXYCODONE IR 5 MG TABLET 10 MG PO ×2 (11:28→23:40)
--- NOTE | 2018-05-18 12:08 | PT.IPTN ---
Current Diagnoses Unilateral primary osteoarthritis, left knee (05/16/18) Surgery Performed Operation Date: 05/16/18 10:45 Actual Procedures p Total Knee Arthroplasty(Left) - Phyllis Flores MD Physical Therapy Treatment Note M2 PT-IP Current Condition Start: 05/16/18 16:56 Freq: NEEDED Status: Active Protocol: Document 05/16/18 17:20 EA (Rec: 05/16/18 17:38 EA [id number]) Physical Therapy Current Condition Current Condition Evaluation Date 05/16/18 Treatment Diagnosis s/p L TKA 05/16/18 Onset Date 05/16/18 Weight Bearing Status Weight Bearing Status Weight Bear as Tolerated M3 PT-IP Subjective Start: 05/16/18 16:56 Freq: NEEDED Status: Active Protocol: Document 05/18/18 11:59 SA (Rec: 05/18/18 12:08 SA [id number]) Subjective Physical Therapy Visit Type Type Treatment Note Visit Start Time 09:19 Visit Stop Time 09:44 Total Visit Minutes 25 Number of SUPERVISOR DRY CLEANING Visits 3 Physical Therapy Visit Comments Patient Comments Pt reports feeling sore and stiff this AM. Patient Goals To d/c SNF for continued rehab prior to returning home to care for with Parkinsons. Therapy Pain Assessment Pain When Pain Assessed During Mobility Pain Present Pain Present Pain Reported Location Left Knee Intensity 6 Scale Used Numeric (1 - 10) Description Acute Pain Management Techniques Apply Cold Re-positioning Timing of Activity with Medications M4 PT-IP Mobility and Gait Start: 05/16/18 16:56 Freq: NEEDED Status: Active Protocol: Document 05/18/18 11:59 SA (Rec: 05/18/18 12:08 SA [id number]) PT-Bed Mobility Assessment Sit to Supine Sit to Supine Contact Guard Assistance Scooting Scooting to Edge of Bed Standby Assistance Scooting Up and Down in Bed Standby Assistance PT-Transfer Assessment Sit to and From Stand Sit to and from Stand Standby Assistance Equipment Transfer Assistive Device Gait Belt Front Wheeled Walker Orthotic/Prosthetic Devices or Brace: No Transfers Transfer Destination Chair Transfer Technique Stand Step Pivot Transfer Ability Level of Assist Standby Assistance 1 Person Assistance Comments Mobility Comments Pt SBA-CGA with mobility tasks and FWW, slow gaurded movements. Gait Assessment Gait Gait Assistance Required: Contact Guard Assist Distance (Feet) 65 Able to Maintain Weight Bearing Status Yes During Gait Assistive Devices Assistive Device Gait Belt Front Wheeled Walker Orthotic/Prosthetic Devices or Brace: No Gait Deviations General Gait Pattern Antalgic Decreased Stride Length Decreased Feet Clearance Factors Limiting Gait Function Factors Limiting Gait Function Decreased Activity Tolerance Decreased Strength Limited Range of Motion Pain Comments Gait Comments Pt continues to limit LLE WBing with step to gait pattern and WBs heavily through UEs. Pain is limiting factor. Stair Climbing Assessment Evaluation Level of Assist On Stairs Contact Guard Assistance Devices Stair Climbing Assistive Devices Front Wheel Walker Technique/Endurance Stair Climbing Direction Ascend and Descend Stair Climbing Technique Step to Step Number of Steps Climbed 1 Query Text: Stair Climbing Set # Repetitions (reps) 1 Comments Stair Climbing Comments Pt able to manage single step with CGA. PT-Balance Assessment Sitting Balance and Reactions Static Sitting Balance Ability Good Dynamic Sitting Balance Ability Good M5 PT-IP Objective Assessments Start: 05/16/18 16:56 Freq: NEEDED Status: Active Protocol: Document 05/16/18 17:20 EA (Rec: 05/16/18 17:38 EA [id number]) Orientation Orientation/Cognition Level of Alertness Alert Orientation Name Age Language Function Ability No Deficits Noted Safety Awareness Understands Safety Issues Memory Description No Deficits Noted Gross Range of Motion Upper Extremity ROM Assessment Within Functional Limits Lower Extremity ROM Assessment Left Impaired Impairments at least 0-90 F/E on left knee Strength Upper Extremity Strength Assessment Within Functional Limits Wrist R wrist w/ CTS Lower Extremity Strength Assessment Left Impaired Knee Left knee with at least 3-/5 flexion/extension Coordination Assessment Gross Coordination Gross Coordination WNL Assessment Finger to Nose Test Normal Performance Pronation/Supination Test Normal Performance Sensation Assessment Sensation Gross Sensation WNL Muscle Tone Comments Muscle Tone Comments Muscle guarding to left quads and hamstring M6 PT-IP Treatment Start: 05/16/18 16:56 Freq: NEEDED Status: Active Protocol: Document 05/18/18 11:59 SA (Rec: 05/18/18 12:08 SA [id number]) Physical Therapy Treatment Exercises Exercises Ankle Pumps Quad Sets Heel Slides Short Arc Quads Seated Knee Flexion/Extension Education Education Provided Precautions Weight Bearing Status Post-Op Packet Safety M7 PT-IP Assessment and Plan Start: 05/16/18 16:56 Freq: NEEDED Status: Active Protocol: Document 05/18/18 11:59 SA (Rec: 05/18/18 12:08 SA [id number]) PT Summary Assessment and Plan Potential Rehabilitation Potential Good Status of Condition at Evaluation Stable Summary Assessment Summary Pt continues with high pain levels during mobility and fatigues rapidly with ambulation. Frequency of Treatment Frequency Of Treatment Twice a Day Treatment Plan Physical Therapy Treatment Plan Bed Mobility Training Transfer Training Gait Training Therapeutic Exercise Post Op Education Discharge Planning Hot or Cold Pack Recommendations To Nursing Amount of Assist Needed 1 Person Assist Discharge Recommendations PT Discharge Recommendations SNF Rehab
--- NOTE | 2018-05-18 15:21 | PT.IPTN ---
Current Diagnoses Unilateral primary osteoarthritis, left knee (05/16/18) Surgery Performed Operation Date: 05/16/18 10:45 Actual Procedures p Total Knee Arthroplasty(Left) - Phyllis Flores MD Physical Therapy Treatment Note M2 PT-IP Current Condition Start: 05/16/18 16:56 Freq: NEEDED Status: Active Protocol: Document 05/16/18 17:20 EA (Rec: 05/16/18 17:38 EA [id number]) Physical Therapy Current Condition Current Condition Evaluation Date 05/16/18 Treatment Diagnosis s/p L TKA 05/16/18 Onset Date 05/16/18 Weight Bearing Status Weight Bearing Status Weight Bear as Tolerated M3 PT-IP Subjective Start: 05/16/18 16:56 Freq: NEEDED Status: Active Protocol: Document 05/18/18 15:15 SA (Rec: 05/18/18 15:21 SA [id number]) Subjective Physical Therapy Visit Type Type Treatment Note Visit Start Time 14:56 Visit Stop Time 15:16 Total Visit Minutes 20 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 Patient Goals To d/c SNF for continued rehab prior to returning home to care for with Parkinsons. Therapy Pain Assessment Pain When Pain Assessed During Mobility Pain Present Pain Present Pain Reported Location Left Knee Intensity 5 Scale Used Numeric (1 - 10) Description Acute Pain Management Techniques Apply Cold Re-positioning Timing of Activity with Medications M4 PT-IP Mobility and Gait Start: 05/16/18 16:56 Freq: NEEDED Status: Active Protocol: Document 05/18/18 15:15 SA (Rec: 05/18/18 15:21 SA [id number]) PT-Bed Mobility Assessment Supine to Sit Supine to Sit Contact Guard Assistance Sit to Supine Sit to Supine Standby Assistance Scooting Scooting to Edge of Bed Standby Assistance Scooting Up and Down in Bed Standby Assistance PT-Transfer Assessment Sit to and From Stand Sit to and from Stand Standby Assistance Equipment Transfer Assistive Device Gait Belt Front Wheeled Walker Orthotic/Prosthetic Devices or Brace: No Transfers Transfer Destination Bed Toilet Transfer Technique Stand Step Pivot Transfer Ability Level of Assist Standby Assistance 1 Person Assistance Comments Mobility Comments Stand pivot txs on/off toilet with SBA and FWW. Pt SBA-CGA with bed mobility and use of gait belt to assist clearing LLE over EOB during Sup<>sit transitions. Gait Assessment Gait Gait Assistance Required: Contact Guard Assist Distance (Feet) 85 Able to Maintain Weight Bearing Status Yes During Gait Assistive Devices Assistive Device Gait Belt Front Wheeled Walker Orthotic/Prosthetic Devices or Brace: No Gait Deviations General Gait Pattern Antalgic Decreased Stride Length Decreased Feet Clearance Factors Limiting Gait Function Factors Limiting Gait Function Decreased Activity Tolerance Decreased Strength Limited Range of Motion Pain Comments Gait Comments Improved gait this afternoon with longer step lengths and heel strike, pt still fatigues rapidly and l knee pain is limiting gait distance. Stair Climbing Assessment Evaluation Level of Assist On Stairs Contact Guard Assistance Devices Stair Climbing Assistive Devices Front Wheel Walker PT-Balance Assessment Sitting Balance and Reactions Static Sitting Balance Ability Good Dynamic Sitting Balance Ability Good M5 PT-IP Objective Assessments Start: 05/16/18 16:56 Freq: NEEDED Status: Active Protocol: Document 05/16/18 17:20 EA (Rec: 05/16/18 17:38 EA [id number]) Orientation Orientation/Cognition Level of Alertness Alert Orientation Name Age Language Function Ability No Deficits Noted Safety Awareness Understands Safety Issues Memory Description No Deficits Noted Gross Range of Motion Upper Extremity ROM Assessment Within Functional Limits Lower Extremity ROM Assessment Left Impaired Impairments at least 0-90 F/E on left knee Strength Upper Extremity Strength Assessment Within Functional Limits Wrist R wrist w/ CTS Lower Extremity Strength Assessment Left Impaired Knee Left knee with at least 3-/5 flexion/extension Coordination Assessment Gross Coordination Gross Coordination WNL Assessment Finger to Nose Test Normal Performance Pronation/Supination Test Normal Performance Sensation Assessment Sensation Gross Sensation WNL Muscle Tone Comments Muscle Tone Comments Muscle guarding to left quads and hamstring M6 PT-IP Treatment Start: 05/16/18 16:56 Freq: NEEDED Status: Active Protocol: Document 05/18/18 15:15 SA (Rec: 05/18/18 15:21 SA [id number]) Physical Therapy Treatment Exercises Exercises Ankle Pumps Quad Sets Heel Slides Short Arc Quads Seated Knee Flexion/Extension Education Education Provided Precautions Weight Bearing Status Post-Op Packet Safety M7 PT-IP Assessment and Plan Start: 05/16/18 16:56 Freq: NEEDED Status: Active Protocol: Document 05/18/18 15:15 SA (Rec: 05/18/18 15:21 SA [id number]) PT Summary Assessment and Plan Potential Rehabilitation Potential Good Status of Condition at Evaluation Stable Summary Assessment Summary Pt ready for d/c to SNF tomorrow, will benefit from continued therapy to improve LE strength, ROM and improving gait. Frequency of Treatment Frequency Of Treatment Twice a Day Treatment Plan Physical Therapy Treatment Plan Bed Mobility Training Transfer Training Gait Training Therapeutic Exercise Post Op Education Discharge Planning Hot or Cold Pack Recommendations To Nursing Amount of Assist Needed 1 Person Assist Discharge Recommendations PT Discharge Recommendations SNF Rehab
[2018-05-18 15:51] VITALS: BP 139/63; PULSE 76; RESP 16; TEMP 36.1; O2SAT 90
[2018-05-18 19:57] VITALS: BP 134/60; PULSE 80; RESP 18; TEMP 36.1
[2018-05-19 00:16] VITALS: BP 129/56; PULSE 78; RESP 18; TEMP 36.9; O2SAT 92
--- NOTE | 2018-05-19 01:23 | PC.NURSE ---
2300- Pt up to bathroom 1PA; not bearing weight on L knee. POD#2 total knee w/ BANG dressing in place. Some old drainage noted at the bottom of the dressing; pulses palpable and strong. AC/HS BG checks taking place. Saline locked on RA w/ stable sats. PO oxycodone given for pain in L knee, pt states she would like to be woken up every time her pain pills are due. 0300- PO oxycodone given for L knee pain. Pt moving 1PA to [facility]; denies any needs. 0620- PO oxycodone given per pt's request, she states her pain gets out of control in the AM. Hoping this will help keep the pain under control while she moves around through the day.
[2018-05-19] MEDS: OXYCODONE IR 5 MG TABLET PO ×2 (03:04→12:37)
[2018-05-19 04:07] VITALS: BP 146/57; PULSE 75; RESP 18; TEMP 36.6; O2SAT 93
[2018-05-19] MEDS: OXYCODONE IR 5 MG TABLET 10 MG PO ×2 (06:28→09:49)
[2018-05-19] MEDS: LEVOTHYROXINE 112 MCG TABLET PO (06:28)
[2018-05-19 07:38] VITALS: BP 127/57; PULSE 78; RESP 18; TEMP 36.7; O2SAT 96
[2018-05-19] MEDS: DULOXETINE 30 MG CAPSULE 60 MG PO (08:24)
[2018-05-19] MEDS: AMLODIPINE 5 MG TABLET PO (08:24)
[2018-05-19] MEDS: MELOXICAM 7.5 MG TABLET 15 MG PO (08:24)
[2018-05-19] MEDS: DOCUSATE 100 MG CAPSULE PO (08:24)
[2018-05-19] MEDS: METFORMIN HCL 500 MG TABLET 250 MG PO (08:24)
[2018-05-19] MEDS: ASCORBIC ACID 500 MG TABLET PO (08:24)
[2018-05-19] MEDS: SENNOSIDES 8.6 MG TABLET PO (08:25)
[2018-05-19] MEDS: POLYETHYLENE GLYCOL 3350 17 GM POWD.PACK PO (08:25)
[2018-05-19] MEDS: GABAPENTIN 600 MG TABLET PO ×2 (08:25→12:36)
[2018-05-19] MEDS: ACETAMINOPHEN 325 MG TABLET 975 MG PO (08:26)
[2018-05-19] MEDS: ASPIRIN EC 81 MG TABLET PO (08:29)
--- NOTE | 2018-05-19 09:45 | P.DS_ITS ---
History of Present Illness Date Patient Seen: 05/19/18 Time Patient Seen: 09:45 Chief complaint: Total Knee Arthroplasty 15027 Narrative: The patient has had progressively worsening left knee pain with radiographic changes consistent with arthritis. Non-operative management has failed and the patient has requested total knee replacement. The risks, benefits and alternatives to surgery were discussed with the patient prior to proceeding. Risks discussed included, but were not limited to, failure to relieve pain, stiffness, infection, nerve damage, deep venous thrombosis, pulmonary embolism, stroke, coma, heart attack, permanent paralysis and , as well as the potential need for eventual revision of the prosthetic. Discharge Providers Date of admission: 05/16/18 08:42 Discharge Date: 05/19/18 Primary care physician: Ingrid Ponce DO Consults: 05/08/18 13:48 Consult to Interventional Physiatrist Routine Comment: 05/16/18 06:00 Consult to Anesthesiology Routine Comment: Consulting Provider: Anesthesiologist Reason for consultation: Regional block for post operative pain control 05/16/18 14:33 Consult to Discharge Planning Routine Comment: Consult to Physical Therapy Evaluate & Treat Comment: Physician Instructions: postop TKA protocol Consult to Respiratory Therapy Evaluate & Treat Comment: Physician Instructions: Evaluate and treat 05/18/18 10:44 Consult to Occupational Therapy Evaluate & Treat Comment: Physician Instructions: Evaluate and treat Discharge provider: Kanwal Salmeron PA-C Summary Discharge Diagnosis: s/p total knee arthroplasty Hyperthyroidism Hypertension Diabetes Hospital Course: Akanksha was admitted for left total knee arthroplasty with Dr. Caroline sanchez, and she consented to procedure. on postop day 3. Patient was ready to discharge to [facility]. She has been slow to mobilize after surgery. Her has significant dementia and is unable to care for her when she goes home. Drain was removed. She is eating and voiding without difficulty or assistance. She has been working with physical therapy throughout her stay. Pain is well controlled with oxycodone. Status at Discharge Functional status at discharge: uses cane/walker Exam Vital Signs (past 8 hours): - 05/19/18 04:07 05/19/18 07:38 Temperature 97.8 F 98.1 F Pulse Rate 75 78 Respiratory Rate 18 18 Blood Pressure 146/57 H 127/57 L Pulse Oximetry 93 96 Oxygen Delivery Method Room Air Oxygen Flow Rate 0 Narrative Exam Narrative: The patient is sitting at bedside chair in no acute distress. She is alert and oriented x3. Dressing on left knee is CDI. Calves are soft, compressible, nontender bilaterally. Sensation intact to light touch throughout bilateral lower extremities. Pulses are symmetrical. She is able to actively dorsiflex and plantar flex. Her pain is well controlled this morning. She denies any chest pain or nausea. Objective Labs Result Diagrams: 05/17/18 05:27 Discharge Plan Discharge Plan Patient Disposition: SNF Transfer to: [facility] Under care of provider: Facility MD Transportation: Wheelchair Consult as needed: Dental, Hearing, Mental health, Podiatry and Vision I certify the postop hospital group home care is medically necessary on a continuing basis for any conditions for which he/ she received care during this hospitalization.: Yes The receiving facility has agreed to accept transfer and provide medical treatment.: Yes Discharge Med Rec/Prescriptions Prescriptions: New acetaminophen 325 mg Tablet 975 mg PO TID Qty: 60 RF: 0 aspirin 81 mg Tablet,Delayed Release (Dr/Ec) 81 mg PO BID Qty: 60 RF: 0 docusate sodium 100 mg Capsule 100 mg PO BID Qty: 60 RF: 0 oxycodone 5 mg Tablet 5 mg PO Q4-6H PRN (Reason: Pain, Moderate (4-6)) Qty: 50 RF: 0 Continued amlodipine [Norvasc] 5 mg tablet 5 mg PO QDAY Qty: 90 RF: 3 levothyroxine 112 mcg tablet 112 mcg PO QDAY Qty: 90 RF: 2 duloxetine [Cymbalta] 60 mg capsule,delayed release(DR/EC) 60 mg PO Q DAY Qty: 90 RF: 1 gabapentin [Neurontin] 300 mg capsule 600 mg PO QID Qty: 720 RF: 1 meloxicam [Mobic] 15 mg tablet 15 mg PO Q DAY Qty: 90 RF: 0 trospium 20 mg tablet 20 mg PO BID RF: 0 ascorbic acid (vitamin C) [Vitamin C] 500 mg Tablet 500 mg PO BID RF: 0 metformin [Glucophage] 500 mg tablet 250 mg PO BID RF: 0 Discontinued Test Strips - Freestyle BID Qty: 180 RF: 0 Follow up/Referrals: Phyllis Flores MD [Physician] - Ingrid Ponce DO [Primary Care Provider] - Discharge Health Status Multidrug resistant organism: No MDRO Provider Discharge Instructions Diet: Diet as Tolerated Liquid consistency: Normal/Thin Food texture: Regular Activity: Weightbearing as tolerated Cold/Heat Therapy: as needed Skin/Wound/Dressing Care Report to your healthcare provider any signs of infection, such as:: chills, fever and increased pain Dressing: Leave in place until appointment Special Rehabilitation Services Reason for rehabilitation: Post-operative therapy Rehab type: Physical therapy and Occupational therapy Visit Report/Discharge Packet Instructions: DI for Knee Replacement Discharge Data Primary Care Provider: Ingrid Ponce Attending Provider: Phyllis Flores Admit Date/Time: 05/16/18 08:42 Quality VTE Deep Vein Thrombosis/Pulmonary Embolism Present on Admission: No
--- NOTE | 2018-05-19 10:50 | CM.DPC ---
DCP: continued: pt now with d/c to [facility] orders. Snf order packet is faxed to [facility] now along with [facility] (confirmed with pt that her Cymbalta home medication ordered by her PCP is part of her chronic pain management medication tx. She says it is not for depression.) [facility] will pick pt up at 1330. Pt aware, is going to have a shower as part of her OT tx at 11OO. AURELIO Lynn is updated. Will follow prn until pt leaves.
--- NOTE | 2018-05-19 11:09 | CM.DPC ---
DCP Cont: Faxed discharge referral to [facility] at fax # [phone]. Fax confirmation scanned in. 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
[2018-05-19 11:40] VITALS: BP 130/62; PULSE 80; RESP 20; TEMP 36.6; O2SAT 92
--- NOTE | 2018-05-19 11:56 | PT.IPTN ---
Current Diagnoses Unilateral primary osteoarthritis, left knee (05/16/18) Surgery Performed Operation Date: 05/16/18 10:45 Actual Procedures p Total Knee Arthroplasty(Left) - Phyllis Flores MD Physical Therapy Treatment Note M2 PT-IP Current Condition Start: 05/16/18 16:56 Freq: NEEDED Status: Active Protocol: Document 05/16/18 17:20 EA (Rec: 05/16/18 17:38 EA [id number]) Physical Therapy Current Condition Current Condition Evaluation Date 05/16/18 Treatment Diagnosis s/p L TKA 05/16/18 Onset Date 05/16/18 Weight Bearing Status Weight Bearing Status Weight Bear as Tolerated M3 PT-IP Subjective Start: 05/16/18 16:56 Freq: NEEDED Status: Active Protocol: Document 05/19/18 11:56 GGD (Rec: 05/19/18 11:56 GGD [id number]) Subjective Physical Therapy Visit Type Type Patient Refusal Notes Pt refused, states she is very tired after shower.
--- NOTE | 2018-05-19 12:38 | OT.IP.EVAL ---
Current Diagnoses Unilateral primary osteoarthritis, left knee (05/16/18) Surgery Performed Operation Date: 05/16/18 10:45 Actual Procedures p Total Knee Arthroplasty(Left) - Phyllis Flores MD Past Medical History (Last Reviewed 05/11/18 @ 20:18 by Sharyn Cleveland MD) Idiopathic peripheral autonomic neuropathy, unspecified (Chronic 08/28/10) GERD (gastroesophageal reflux disease) (Chronic 08/28/10) Colon polyps (Resolved 08/28/10) Endometrial hyperplasia (Resolved) Ductal carcinoma in situ (DCIS) of right breast (Resolved) Hyperlipidemia (Chronic 08/28/10) Acquired hypothyroidism (Chronic 08/28/10) 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) Essential hypertension (Chronic 11/25/14) Morbid obesity with body mass index (BMI) of 40.0 to 44.9 in adult (Chronic 11/25/14) Back pain (Acute) Chronic bronchitis (Acute) Former smoker, stopped smoking many years ago (Acute) History of hysteroscopy (Acute) Ovarian cyst (Acute) Peripheral edema (Acute) Peripheral neuropathy (Acute) KENNA (stress urinary incontinence, female) (Acute) Sciatica (Acute) Surgical History (Last Reviewed 05/11/18 @ 20:18 by Sharyn Cleveland MD) History of arthroplasty of right knee (Acute) History of arthroscopy of both knees (Acute) History of lumpectomy of right breast (Acute) Hx of appendectomy (Acute) Hx of eye surgery (Acute ~07/2015) Hx of oophorectomy (Acute) Hx of tonsillectomy (Acute) Status post Mohs surgery (Acute) Status post bilateral cataract extraction (Acute ~2014) Status post surgery (09/17/16) Occupational Therapy Inpatient Evaluation/Re-Eval M1 PT/OT-IP Prior Functional Status Start: 05/16/18 16:56 Freq: NEEDED Status: Active Protocol: Document 05/16/18 17:20 JEANNETTE (Rec: 05/16/18 17:38 JEANNETTE [id number]) Medical Review Prior Functional Status Medical History Reviewed Yes Diet/Fluid Consistency Regular Communication Oriented x 3 Mobility and Gait Indep with ability to amb > a block with the use of FWW. Single fall in the last six months due to missed steps Activities of Daily Living and IADL's Indep Social History Household Members spouse Living Arrangements Apartment/Condo Number of Stairs To Enter/Railing? Single step with no rail Home Equipment Front Wheel Walker Straight Cane Bedside Commode Employment Status Retired M1 PT/OT-IP Prior Functional Status Start: 05/19/18 12:16 Freq: NEEDED Status: Active Protocol: Document 05/19/18 12:17 [facility] (Rec: 05/19/18 12:38 [facility] [id number]) Medical Review Prior Functional Status Medical History Reviewed Yes Diet/Fluid Consistency Regular Communication Oriented x 3 Mobility and Gait Indep with ability to amb > a block with the use of FWW. Single fall in the last six months due to missed steps Activities of Daily Living and IADL's Indep Social History Household Members spouse Living Arrangements Apartment/Condo Number of Stairs To Enter/Railing? Single step with no rail Home Environment Walk in Shower Home Equipment Front Wheel Walker Straight Cane Bedside Commode Shower Seat with Backrest Hand Held Shower Employment Status Retired M2 OT-IP Current Condition Start: 05/19/18 12:16 Freq: Status: Active Protocol: Document 05/19/18 12:17 [facility] (Rec: 05/19/18 12:38 [facility] [id number]) Occupational Therapy Current Condition Current Condition Evaluation Date 05/19/18 Treatment Diagnosis Left Knee Osteoarthritis Diagnosis Onset Date 05/16/18 Weight Bearing Status Weight Bearing Status Weight Bear as Tolerated M3 OT- IP Subjective and Pain Start: 05/19/18 12:16 Freq: Status: Active Protocol: Document 05/19/18 12:17 [facility] (Rec: 05/19/18 12:38 [facility] [id number]) OT- Subjective Occupational Therapy Visit Type Type Initial Evaluation Visit Start Time 11:00 Visit Stop Time 11:50 Total Visit Minutes 50 Occupational Therapy Visit Comments Patient Comments Pt wanting to shower prior to going to skilled rehab. OT Pain Assessment Pain When Pain Assessed At Rest Pain Present Pain Present Denied Pain M4 OT- IP ADL's Start: 05/19/18 12:16 Freq: Status: Active Protocol: Document 05/19/18 12:17 [facility] (Rec: 05/19/18 12:38 [facility] [id number]) OT ADL-Dressing General Eval Lower Body Dressing Ability Maximum Assistance Areas Needing Assistance Socks Assistive Devices Dressing Assistive Devices Government Program Manager Sock Aid Comments OT Dressing Comments Pt needing MAXA for LB dressing and after education of sock aid and patient coordinator front desk able to do LB dressing with ELEAZAR mainly to get lift up LLE to babak brief over her foot. OT ADL-Toileting General Evaluation Toileting Ability Standby Assistance Comments OT Toileting Comments Pt having to wears briefs at home as well. Educated on toilet aid as pt states at times has difficulty to reach for pericare needs. OT ADL-Bathing Bathing Type Bathing Type Shower General Evaluation Bathing Ability Moderate Assistance Areas Needing Assistance Wash/Dry Back Wash/Dry Lower Extremities Devices Bathing Equipment Shower Chair with Arms Comments OT Bathing Comments Pt needing assist to wash/dry her feet and back. Educated that pt can use a long thin towel to put between her legs to help to asisst for pericare needs or use of toilet aid. Pt to have friend assist in the shower at home. M6 OT- IP Functional Cognition Start: 05/19/18 12:16 Freq: Status: Active Protocol: Document 05/19/18 12:17 [facility] (Rec: 05/19/18 12:38 [facility] [id number]) Cognitive Factors Limiting Selfcare Function Cognitive Ability Level of Alertness Alert Patient Orientation Name Age Birthday Month Date Year Day of Week Place Situation Attention Span Ability Capable of Focused Attention Capable of Sustained Attention Ability to Follow Commands Able to Follow One Step Commands Memory Description Short Term Impaired Safety Awareness Underestimates Need for Assistance Cognitive Comments Cognitive Assessment Comments Pt a bit groggy and needing concrete commands. OT- Vision and Hearing OT- Hearing Assessment OT- Hearing Assessment WFL OT- Vision Assessment Visual Acuity Glasses All The Time M7 OT- IP Mobility and Balance Start: 05/19/18 12:16 Freq: Status: Active Protocol: Document 05/19/18 12:17 [facility] (Rec: 05/19/18 12:38 [facility] [id number]) OT-Transfer Assessment Sit to and From Stand Sit to and from Stand Contact Guard Assistance Transfers Transfer Ability Contact Guard Assistance Minimal Assistance Technique Transfer Destination Chair Shower Stall Toilet Devices Transfer Assistive Devices Gait Belt Front Wheeled Walker Comments Mobility Comments ELEAZAR for balance while stepping over threshold of shower with FWW and to help get up from lower surfaces. OT- Balance Assessment Sitting Balance and Reactions Static Sitting Balance Ability Normal Dynamic Sitting Balance Ability Good Standing Balance and Reactions Static Standing Balance Ability Good M8 OT- IP Objective Assessments Start: 05/19/18 12:16 Freq: Status: Active Protocol: Document 05/19/18 12:17 [facility] (Rec: 05/19/18 12:38 [facility] [id number]) OT Gross Range of Motion Upper Extremity Range of Motion Assessment Within Functional Limits OT Strength Upper Extremity Strength Assessment Within Functional Limits M9 OT- IP Assessment and Plan Start: 05/19/18 12:16 Freq: Status: Active Protocol: Document 05/19/18 12:17 [facility] (Rec: 05/19/18 12:38 [facility] [id number]) OT Summary Assessment and Plan Potential Rehabilitation Potential Excellent Analytic Complexity at Evaluation Low Summary OT Impairments Pain Range of Motion Functional Cognition Functional Mobility Dressing Toileting Bathing Toilet Transfers Shower Transfers Progress Towards Goals Progressing Toward Goals Assessment Summary Pt low complexity and main barrier is decreased endurance , activity tolerance, and now needing assist for ADl and functional mobility needs. Pt will not be able to assist at home and therefore needs to be SHARON prior to going home therefore, pt would benefit from short skilled rehab. Goals Dressing Goal Standby Assistance Toileting Goal Independent Bathing Goal Standby Assistance Toilet Transfer Goal Independent Shower Transfer Goal Standby Assistance Patient/Caregiver Education Goal Demonstrate Energy Conservation and Pacing Caregiver Independent Assisting Patient Days to Meet Goals 3 Frequency of Treatment Frequency Of Treatment Once a Day Treatment Plan OT Treatment Plan ADL Training Functional Cognition Training Functional Mobility Patient/Family Education Discharge Planning Discharge Recommendations OT Discharge Recommendations SNF Rehab
--- NOTE | 2018-05-19 12:57 | PC.NURSE ---
Pt ready for discharge home and all belongings are packed up. Family is at the bedside and will be accompanying her to [facility]. Report called to [facility] (Edith CAREY) and all questions answered. Pt to be picked up shortly and transferred over to [facility] via W/C.
== END 2018-05-19 13:30 | DRG 470 ==
PROVIDERS: Admitting Provider Orthopaedic Surgery; PCP Family Medicine; Visit Provider Orthopaedic Surgery
PROC: 0SRD0JZ Replacement of Left Knee Joint with Synthetic Substitute, Open Approach (ICD-10-PCS; CPT 27447; principal; 2018-05-16 10:45)
DX: M17.12 Unilateral primary osteoarthritis, left knee (principal); Z68.41 Body mass index [BMI] 40.0-44.9, adult; E66.01 Morbid (severe) obesity due to excess calories; E03.9 Hypothyroidism, unspecified; I10 Essential (primary) hypertension; R32 Unspecified urinary incontinence; E11.9 Type 2 diabetes mellitus without complications; Z87.891 Personal history of nicotine dependence
CPT/HCPCS: 36415; 73560; 82962; 85014; 85018; 97110; 97116; 97162; 97165; 97530; 97535; C1776; C9290; J0690; J2250; J2274; J2405; J2704; J2765; J3010; J3370

== ENCOUNTER → 2018-05-29 16:24 | Outpatient (CLI) | payer MEDICARE, OTHER, SELFPAY ==
[2018-05-16 15:12] VITALS: BMI 42.5
[2018-05-29 16:36] LABS: RBC Urine None Seen (0-5/HPF)
[2018-05-29 17:33] LABS: Appearance Urine UA CLOUDY; Bilirubin Urine UA NEGATIVE (NEGATIVE); Color Urine UA YELLOW; Glucose Urine UA NEGATIVE (Negative); Ketones Urine UA NEGATIVE (NEGATIVE); Leukocyte Esterase Urine UA 3+ (NEGATIVE); Nitrite Urine UA NEGATIVE (Negative); Occult Blood Urine UA 2+ (Negative); Protein Urine UA NEGATIVE (Negative); Specific Gravity Urine UA 1.015 (1.000-1.035); Urobilinogen Urine UA 0.2 E.U./dL (0.2)
[2018-05-29 17:59] LABS: Bacteria Urine Few (2-10); Culture Indicated Urine Specimen Cultured; Squamous Epithelial Cell Urine None Seen (0-5/HPF); WBC Urine 30-100/HPF (0-5/HPF)
== END ==
PROVIDERS: PCP Family Medicine; Visit Provider Family Medicine
DX: R39.89 Other symptoms and signs involving the genitourinary system (principal)
CPT/HCPCS: 81001; 87077; 87086; 87186

== ENCOUNTER 2018-06-01 14:32 | Emergency (ER) | payer MEDICARE, OTHER, SELFPAY ==
[2018-05-16 15:12] VITALS: BMI 42.5
[2018-06-01] VITALS (7 sets, daily range): BP systolic 151–176; BP diastolic 55–77; PULSE 69–83; RESP 15–21; TEMP 37.1; O2SAT 95–98; BMI 42.5
--- NOTE | 2018-06-01 14:40 | DI.RAD.S_ITS ---
PROCEDURE: XR CHEST 1V INDICATIONS: chest pain TECHNIQUE: One view of the chest was acquired. COMPARISON: [facility], CR, XR CHEST 2V, 03/09/2018, 10:57. FINDINGS: Surgical changes and devices: Surgical clips are noted in the region of right breast. Lungs and pleura: Lungs are clear. No pleural effusions or pneumothorax. Mediastinum: Mediastinal contours appear normal. Heart size is normal. Bones and chest wall: No suspicious bony lesions. Overlying soft tissues appear unremarkable. IMPRESSION: No gross acute cardiopulmonary pathology. Dictated by: Yordy Klein M.D. on 06/01/2018 at 15:21 Approved by: Yordy Klein M.D. on 06/01/2018 at 15:22
[2018-06-01 14:59] LABS: Add Manual Diff / Slide Review NO; Basophils Absolute Auto 100 /uL (0-100); Basophils Percent Auto 0.9 % (0-2); Eosinophils Absolute Auto 1100 /uL (0-450); Eosinophils Percent Auto 11.3 % (2-4); Hematocrit 34.4 % (36-46); Hemoglobin 11.8 g/dL (12.0-16.0); Lymphocytes Absolute Auto 1200 /uL (1100-4500); Mean Corpuscular HGB Conc 34.4 % (30-36); Mean Corpuscular Hemoglobin 31.9 PG (26-34); Mean Corpuscular Volume 92.7 fL (80-100); Monocytes Absolute Auto 600 /uL (0-900); Monocytes Percent Auto 6.2 % (3-14); Neutrophils Absolute Auto 7000 /uL (1500-7000); Neutrophils Percent Auto 69.6 % (50-75); Platelet Count 358 X10^3/uL (150-400); Red Blood Cell Count 3.71 X10^6/uL (4.0-5.2); Red Cell Distribution Width 14.3 % (11.6-14.8)
[2018-06-01] MEDS: ASPIRIN 81 MG TAB 324 MG PO (15:12)
[2018-06-01 15:27] LABS: Blood Urea Nitrogen 17 mg/dL (7-17); Carbon Dioxide 27 mmol/L (22-32); Chloride 99 mmol/L (98-107); Creatine Kinase 62 U/L (30-135); Potassium 4.2 mmol/L (3.4-5.1); Sodium 135 mmol/L (137-145)
[2018-06-01 15:28] LABS: Alanine Aminotransferase 76 IU/L (9-52); Albumin 4.1 g/dL (3.5-5.0); Albumin Globulin Ratio 1.3 (1.0-2.8); Alkaline Phosphatase 124 U/L (38-126); Aspartate Aminotransferase 93 IU/L (14-36); BUN Creatinine Ratio 28.3 (6-22); Bilirubin Total 0.4 mg/dL (0.2-1.3); Calcium 9.4 mg/dL (8.4-10.2); Estimated Glomerular Filt Rate > 60.0 mL/min (>60); Globulin 3.1 g/dL (1.7-4.1); Glucose 179 mg/dL (80-110); HEMOLYSIS < 15 (0-50); Lipase 157 U/L (23-300); Total Protein 7.2 g/dL (6.3-8.2)
[2018-06-01 15:39] LABS: Troponin I < 0.012 ng/mL (0.01-0.034)
--- NOTE | 2018-06-01 15:46 | ED.CHESTPAIN ---
HPI - Chest Pain General Chief Complaint: Chest Pain Stated Complaint: chest pain/pressure, jaw pain x2day Time Seen by Provider: 06/01/18 14:41 Source: patient Mode of arrival: ambulatory Limitations: no limitations History of Present Illness HPI narrative: Patient comes to the emergency department complaining of her ?GERD acting up? for 2 days. She states she has had this for many many years, and that she usually feels a pressure in her chest with jaw discomfort. She denies history of coronary artery disease or other cardiac issues.. the patient denies shortness of breath, nausea, diaphoresis, or lightheadedness. She states that the symptoms are waxing and waning, and have generally occurred after eating, but that this morning, after a few hours of feeling fine, she began to have the symptoms again. Patient states that they were very mild, but then after she ate lunch, the symptoms got worse again. A mild sensation of pressure in her chest, but the jaw discomfort has eased off. Patient denies any dyspnea on exertion recently. She denies decreased exercise tolerance. Patient states she keeps very busy, and has not had any trouble with her stamina. She denies having had a stress test any time recently. The patient states that Dr. Ponce is her primary care physician. Related Data Home Medications Medication Instructions Recorded Confirmed ascorbic acid (vitamin C) [Vitamin 500 mg PO DAILY 11/01/17 06/01/18 C] trospium 20 mg PO BID 05/16/18 06/01/18 amlodipine [Norvasc] 5 mg PO DAILY 06/01/18 06/01/18 duloxetine [Cymbalta] 60 mg PO DAILY 06/01/18 06/01/18 levothyroxine 112 mcg PO DAILY 06/01/18 06/01/18 meloxicam [Mobic] 15 mg PO DAILY 06/01/18 06/01/18 Previous Rx's Medication Instructions Recorded acetaminophen 975 mg PO TID #60 tab 05/19/18 aspirin 81 mg PO BID #60 tab 05/19/18 oxycodone 5 mg PO Q4-6H PRN #50 tab 05/19/18 nitrofurantoin macrocrystal 100 mg 100 mg PO BID #10 cap 05/29/18 capsule gabapentin 600 mg tablet 600 mg PO QID #360 tab 05/31/18 metformin 500 mg tablet 500 mg PO BID #180 tab 05/31/18 Allergies Allergy/AdvReac Type Severity Reaction Status Date / Time codeine Allergy Severe RESPIRATORY Verified 06/01/18 14:40 DISTRESS oyster extract Allergy Unknown Verified 06/01/18 14:40 reaction-advised by allergy testing Review of Systems Constitutional Denies chills, Denies fever(s), Denies lethargy and Denies weakness Eyes Denies change in vision, Denies eye discharge, Denies irritation and Denies loss of vision ENT Ears, Nose, Mouth, and Throat: Denies change in voice, Denies neck pain and Denies sore throat Comments: Mandibular discomfort Cardiovascular Denies chest pain, Denies irregular heart rhythm, Denies lightheadedness, Denies palpitations, Denies dyspnea, Denies dyspnea on exertion and Denies orthopnea Comments: Chest pressure Respiratory Denies cough, Denies dyspnea, Denies dyspnea on exertion and Denies wheezing Gastrointestinal Gastrointestinal: Denies abdominal pain, Denies change in bowel habits, Denies diarrhea, Denies nausea and Denies vomiting Genitourinary Denies hematuria, Denies flank pain, Denies urinary incontinence and Denies urinary urgency Musculoskeletal Denies neck pain Integumentary/Breasts Denies pruritus, Denies erythema, Denies rash and Denies wounds Neurologic Denies confusion, Denies loss of vision and Denies weakness Psychiatric Denies anxiety, Denies confusion, Denies depression, Denies homicidal ideation and Denies suicidal ideation Endocrine Denies palpitations Hematologic/Lymphatic Denies easy bruising Allergic/Immunologic Denies wheezing [facility] Medical History Idiopathic peripheral autonomic neuropathy, unspecified (Chronic 08/28/10) GERD (gastroesophageal reflux disease) (Chronic 08/28/10) Colon polyps (Resolved 08/28/10) Endometrial hyperplasia (Resolved) Ductal carcinoma in situ (DCIS) of right breast (Resolved) Hyperlipidemia (Chronic 08/28/10) Acquired hypothyroidism (Chronic 08/28/10) 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) Essential hypertension (Chronic 11/25/14) Morbid obesity with body mass index (BMI) of 40.0 to 44.9 in adult (Chronic 11/25/14) Back pain (Acute) Chronic bronchitis (Acute) Former smoker, stopped smoking many years ago (Acute) History of hysteroscopy (Acute) Ovarian cyst (Acute) Peripheral edema (Acute) Peripheral neuropathy (Acute) KENNA (stress urinary incontinence, female) (Acute) Sciatica (Acute) Surgical History History of arthroplasty of right knee (Acute) History of arthroscopy of both knees (Acute) History of lumpectomy of right breast (Acute) Hx of appendectomy (Acute) Hx of eye surgery (Acute ~07/2015) Hx of oophorectomy (Acute) Hx of tonsillectomy (Acute) Status post Mohs surgery (Acute) Status post bilateral cataract extraction (Acute ~2014) Status post surgery (09/17/16) Social History household members: spouse Smoking Status: Former smoker alcohol intake: current Social History household members: spouse Smoking Status: Former smoker alcohol intake: current Exam Initial Vital Signs Initial Vital Signs: Vital Signs Temperature 98.8 F 06/01/18 14:40 Pulse Rate 83 06/01/18 14:40 Respiratory Rate 16 06/01/18 14:40 Blood Pressure 176/69 H 06/01/18 14:40 Pulse Oximetry 95 06/01/18 14:40 Const General: cooperative and well developed Nutritional Appearance: well nourished Orientation: alert, awake, oriented x3 and not confused [facility] Head: normocephalic and atraumatic Ears: external ears normal Nose: external nose normal and No nasal discharge Face and sinus: face symmetric and No dry mucous membranes Mouth: oral mucosae normal and moist mucous membranes Teeth and gingiva: dentition normal Eyes General: appearance normal, both eyes and all related structures Eyelids: eyelids normal Conjunctivae: conjunctivae normal Sclera: sclerae normal Pupils: PERRL EOM: EOM intact bilaterally Neck Neck: normal visual inspection, trachea midline, No lymphadenopathy, No midline deformity and No JVD Lymphatic: No lymphedema Chest Chest: normal inspection of the chest Resp Effort & Inspection: normal respiratory effort, able to speak in complete sentences, no respiratory distress and no use of accessory muscles Auscultation: clear to auscultation bilaterally, no rales, no rhonchi and no wheezes Cardio Rate: regular rate Rhythm: regular rhythm Heart Sounds: no click, no gallops, no murmurs and no rubs Pulses: normal peripheral pulses GI Inspection: non-distended Palpation: soft, no hepatosplenomegaly, No guarding, No pulsatile mass and No tender Auscultation: normal bowel sounds Back/Spine/Pelvis Back: No CVA tenderness Cervical Spine: cervical ROM normal and No pain with cervical ROM Thoracic/Lumbar Spine: thoracic and lumbar spine normal to inspection Skin General: no rashes or lesions noted, No jaundice and No petechiae Neuro General: alert, oriented x3, gait normal and no focal motor deficits Speech: speech normal Extrem General: full ROM, no clubbing, cyanosis or edema, no pedal edema and no calf tenderness Psych Appearance: well kempt Mental Status: mental status grossly normal Attitude: cooperative Thought Content: normal and suicidality Judgment: judgment good Course Course Narrative: The patient was very well-appearing, and reported symptoms that had been going on on and off for many years. However, the symptoms were somewhat more persistent than they had been previously, which had driven the patient to come to the emergency department. I did discuss with the patient that certainly this may be her GERD and that this could cause chest pressure with radiation to the mandible. However, I did also discuss that the patient does have some cardiac risk factors, including her age, history of hypertension, and history of smoking, though this is more remote. As such, I felt the patient should have a cardiac workup. This was initiated, with laboratory studies, EKG, chest x-ray, all of which were unremarkable. I discussed with the patient that she would need a repeat troponin, which was also unremarkable. Patient reported marked improvement after GI cocktail and Protonix. She had also received aspirin in the emergency department. I did give Dr. Ponce a call to explain the situation to her, along with my concern in the setting of patient's current symptoms that the patient has not had a stress test any time recently, to demonstrate low likelihood of coronary artery disease. Dr. Ponce stated that the patient could follow up with her in an expedited fashion, and that she should call the office the next day to make an appointment. I discussed all this with the patient and her friend, and the patient was agreeable. We have discussed the usual indications for return, and I have emphasized to the patient that she must return immediately should any of the symptoms worsen. Patient expressed understanding. Orders Ordered: Discontinued Medications Aspirin (Aspirin Chew) 324 mg PO NOW ONE Stop: 06/01/18 14:41 Last Admin: 06/01/18 15:12 Dose: 324 mg Al Hydrox/Mg Hydrox/Simethicone 20 ml/ Lidocaine HCl 15 ml 0 ml PO NOW ONE Stop: 06/01/18 15:46 Last Admin: 06/01/18 16:01 Dose: 20 ml Sodium Chloride (Normal Saline 0.9%) 1,000 mls @ 150 mls/hr IV CONT JERRY Last Admin: 06/01/18 15:32 Dose: Not Given Pantoprazole Sodium (Protonix) 40 mg IV NOW ONE Stop: 06/01/18 15:46 Last Admin: 06/01/18 16:02 Dose: Not Given Pantoprazole Sodium (Protonix) 20 mg PO NOW ONE Stop: 06/01/18 15:52 Last Admin: 06/01/18 16:01 Dose: 20 mg Vital Signs - 8 hr 06/01/18 14:40 06/01/18 15:27 Temperature 98.8 F Pulse Rate 83 77 Respiratory Rate 16 19 Blood Pressure 176/69 H Blood Pressure [Left Arm] 167/64 H Pulse Oximetry 95 MDM - Chest Pain Medical Records Data Attestation: I reviewed the patient's medical records. Lab Data Attestation: I reviewed the patient's lab results. Result diagrams: 06/01/18 14:42 06/01/18 14:42 Lab Results 06/01/18 06/01/18 06/01/18 Range/Units 14:42 14:42 17:47 WBC 10.0 (4.5-11.0) X10^3/uL RBC 3.71 L (4.0-5.2) X10^6/uL Hgb 11.8 L (12.0-16.0) g/dL Hct 34.4 L (36-46) % MCV 92.7 (80-100) fL MCH 31.9 (26-34) PG MCHC 34.4 (30-36) % RDW 14.3 (11.6-14.8) % Plt Count 358 (150-400) X10^3/uL Neut % (Auto) 69.6 (50-75) % Lymph % (Auto) 12.0 L (25-40) % Morris % (Auto) 6.2 (3-14) % Eos % (Auto) 11.3 H (2-4) % Baso % (Auto) 0.9 (0-2) % Neut # (Auto) 7000 (2267-5884) /uL Lymph # (Auto) 1200 (0265-0044) /uL Morris # (Auto) 600 (0-900) /uL Eos # (Auto) 1100 H (0-450) /uL Baso # (Auto) 100 (0-100) /uL Sodium 135 L (137-145) mmol/L Potassium 4.2 (3.4-5.1) mmol/L Chloride 99 (98-107) mmol/L Carbon Dioxide 27 (22-32) mmol/L BUN 17 (7-17) mg/dL Creatinine 0.60 (0.52-1.04) mg/dL Estimated GFR > 60.0 (>60) mL/min BUN/Creatinine Ratio 28.3 H (6-22) Glucose 179 H (80-110) mg/dL Calcium 9.4 (8.4-10.2) mg/dL Total Bilirubin 0.4 (0.2-1.3) mg/dL AST 93 H (14-36) IU/L ALT 76 H (9-52) IU/L Alkaline Phosphatase 124 (38-126) U/L Total Creatine Kinase 62 (30-135) U/L CK-MB (CK-2) TNP CK-MB (CK-2) Rel Index TNP Troponin I < 0.012 < 0.012 (0.01-0.034) ng/mL Total Protein 7.2 (6.3-8.2) g/dL Albumin 4.1 (3.5-5.0) g/dL Globulin 3.1 (1.7-4.1) g/dL Albumin/Globulin Ratio 1.3 (1.0-2.8) Lipase 157 (23-300) U/L Urine Dip Bedside Urine Glucose Negative Bedside Urine Bilirubin - Negative Bedside Urine Ketone - Negative Urine Specific [place] 1.010 Bedside Urine Occult Blood - Negative Bedside Urine pH 6.0 Bedside Urine Protein - Negative Bedside Urine Urobilinogen - Negative Bedside Urine Nitrite - Negative Bedside Urine Leukocytes - Negative Esterase Imaging Data Chest x-ray: Attestation: I personally reviewed and interpreted this imaging study as follows: My impression: Negative Radiologist's impression: [address] [address] XRay Report Signed Patient: Akanksha Ghotra CMR#: [id number] : 4Acct:[id number] Age/Sex: 72 / FDate of Service: 06/01/18 Loc: ED Accession Number: [id number] Procedure: XR chest 1V Ordering Provider: Soo Mckinley MD PROCEDURE: XR CHEST 1V INDICATIONS: chest pain TECHNIQUE: One view of the chest was acquired. COMPARISON: [facility], CR, XR CHEST 2V, 03/09/2018, 10:57. FINDINGS: Surgical changes and devices: Surgical clips are noted in the region of right breast. Lungs and pleura: Lungs are clear. No pleural effusions or pneumothorax. Mediastinum: Mediastinal contours appear normal. Heart size is normal. Bones and chest wall: No suspicious bony lesions. Overlying soft tissues appear unremarkable. IMPRESSION: No gross acute cardiopulmonary pathology. Dictated by: Yordy Klein M.D. on 06/01/2018 at 15:21 Approved by: Yordy Klein M.D. on 06/01/2018 at 15:22 ECG Data Attestation: I personally reviewed and interpreted this ECG as follows: (See below) Interpretation: Twelve lead EKG performed, showing the following: Regular ventricular rhythm with a normal rate; no ectopy; no significant ST T wave changes; P waves present and correlating well with QRS complexes at normal intervals. Interpretation: Normal sinus rhythm, no signs of acute ischemia or dysrhythmia as interpreted by ED MD. Discharge Plan Departure Patient Disposition: Home Clinical Impression: GERD (gastroesophageal reflux disease) Qualifiers: Esophagitis presence: esophagitis presence not specified Qualified Code(s): K21.9 - Gastro-esophageal reflux disease without esophagitis Chest pain Qualifiers: Chest pain type: unspecified Qualified Code(s): R07.9 - Chest pain, unspecified Discharge Date/Time: 06/01/18 19:01 Interventions: ED Discharge Assessment Last Done: 06/01/18 18:59 Instructions: DI for Chest Pain Activity Restrictions/Additional Instructions: Your labs look good, including 2 sets of cardiac enzymes. Her case has been discussed with Dr. will help, your primary doctor, and she would like to see you in follow-up regarding her chest pain. she says her office will call you tomorrow to set up an appointment. If you do not hear from them by noon, please give them a call to make sure that you have an appointment set up in a timely manner. Prescriptions: No Action nitrofurantoin macrocrystal 100 mg capsule 100 mg PO BID Qty: 10 RF: 0 gabapentin 600 mg tablet 600 mg PO QID Qty: 360 RF: 3 metformin [Glucophage] 500 mg tablet 500 mg PO BID Qty: 180 RF: 3 trospium 20 mg tablet 20 mg PO BID RF: 0 acetaminophen 325 mg Tablet 975 mg PO TID Qty: 60 RF: 0 aspirin 81 mg Tablet,Delayed Release (Dr/Ec) 81 mg PO BID Qty: 60 RF: 0 oxycodone 5 mg Tablet 5 mg PO Q4-6H PRN (Reason: Pain, Moderate (4-6)) Qty: 50 RF: 0 amlodipine [Norvasc] 5 mg tablet 5 mg PO DAILY RF: 0 duloxetine [Cymbalta] 60 mg capsule,delayed release(DR/EC) 60 mg PO DAILY RF: 0 meloxicam [Mobic] 15 mg tablet 15 mg PO DAILY RF: 0 levothyroxine 112 mcg tablet 112 mcg PO DAILY RF: 0 ascorbic acid (vitamin C) [Vitamin C] 500 mg Tablet 500 mg PO DAILY RF: 0 Referrals: Ingrid Ponce DO [Primary Care Provider] -
[2018-06-01] MEDS: PANTOPRAZOLE 20 MG TABLET PO (16:01)
[2018-06-01] MEDS: MAG HYDROX/ALUMINUM/SIMETH SUS 20 ML, LIDOCAINE VISCOUS 2% 15 ML PO (16:01)
[2018-06-01 18:24] LABS: Troponin I < 0.012 ng/mL (0.01-0.034)
--- NOTE | 2018-06-08 11:50 | ED_ITS ---
HPI - Chest Pain General Chief Complaint: Chest Pain Stated Complaint: chest pain/pressure, jaw pain x2day Time Seen by Provider: 06/01/18 14:41 Source: patient Mode of arrival: ambulatory Limitations: no limitations History of Present Illness HPI narrative: Patient comes to the emergency department complaining of her ?GERD acting up? for 2 days. She states she has had this for many many years, and that she usually feels a pressure in her chest with jaw discomfort. She denies history of coronary artery disease or other cardiac issues.. the patient denies shortness of breath, nausea, diaphoresis, or lightheadedness. She states that the symptoms are waxing and waning, and have generally occurred after eati ng, but that this morning, after a few hours of feeling fine, she began to have the symptoms again. Patient states that they were very mild, but then after she ate lunch, the symptoms got worse again. A mild sensation of pressure in her chest, but the jaw discomfort has eased off. Patient denies any dyspnea on exertion recently. She denies decreased exercise tolerance. Patient states she keeps very busy, and has not had any trouble with her stamina. She denies having had a stress test any time recently. The patient states that Dr. Ponce is her primary care physician. Related Data Home Medications Medication Instructions Recorded Confirmed ascorbic acid (vitamin C) [Vitamin 500 mg PO DAILY 11/01/17 06/01/18 C] trospium 20 mg PO BID 05/16/18 06/01/18 amlodipine [Norvasc] 5 mg PO DAILY 06/01/18 06/01/18 duloxetine [Cymbalta] 60 mg PO DAILY 06/01/18 06/01/18 levothyroxine 112 mcg PO DAILY 06/01/18 06/01/18 meloxicam [Mobic] 15 mg PO DAILY 06/01/18 06/01/18 Previous Rx's Medication Instructions Recorded acetaminophen 975 mg PO TID #60 tab 05/19/18 aspirin 81 mg PO BID #60 tab 05/19/18 oxycodone 5 mg PO Q4-6H PRN #50 tab 05/19/18 nitrofurantoin macrocrystal 100 mg 100 mg PO BID #10 cap 05/29/18 capsule gabapentin 600 mg tablet 600 mg PO QID #360 tab 05/31/18 metformin 500 mg tablet 500 mg PO BID #180 tab 05/31/18 Allergies Allergy/AdvReac Type Severity Reaction Status Date / Time codeine Allergy Severe RESPIRATORY Verified 06/01/18 14:40 DISTRESS oyster extract Allergy Unknown Verified 06/01/18 14:40 reaction-advised by allergy testing Review of Systems Constitutional Denies chills, Denies fever(s), Denies lethargy and Denies weakness Eyes Denies change in vision, Denies eye discharge, Denies irritation and Denies loss of vision ENT Ears, Nose, Mouth, and Throat: Denies change in voice, Denies neck pain and Denies sore throat Comments: Mandibular discomfort Cardiovascular Denies chest pain, Denies irregular heart rhythm, Denies lightheadedness, Denies palpitations, Denies dyspnea, Denies dyspnea on exertion and Denies orthopnea Comments: Chest pressure Respiratory Denies cough, Denies dyspnea, Denies dyspnea on exertion and Denies wheezing Gastrointestinal Gastrointestinal: Denies abdominal pain, Denies change in bowel habits, Denies diarrhea, Denies nausea and Denies vomiting Genitourinary Denies hematuria, Denies flank pain, Denies urinary incontinence and Denies u rinary urgency Musculoskeletal Denies neck pain Integumentary/Breasts Denies pruritus, Denies erythema, Denies rash and Denies wounds Neurologic Denies confusion, Denies loss of vision and Denies weakness Psychiatric Denies anxiety, Denies confusion, Denies depression, Denies homicidal ideation and Denies suicidal ideation Endocrine Denies palpitations Hematologic/Lymphatic Denies easy bruising Allergic/Immunologic Denies wheezing [facility] Medical History Idiopathic peripheral autonomic neuropathy, unspecified (Chronic 08/28/10) GERD (gastroesophageal reflux disease) (Chronic 08/28/10) Colon polyps (Resolved 08/28/10) Endometrial hyperplasia (Resolved) Ductal carcinoma in situ (DCIS) of right breast (Resolved) Hyperlipidemia (Chronic 08/28/10) Acquired hypothyroidism (Chronic 08/28/10) 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) Essential hypertension (Chronic 11/25/14) Morbid obesity with body mass index (BMI) of 40.0 to 44.9 in adult (Chronic 11/25/14) Back pain (Acute) Chronic bronchitis (Acute) Former smoker, stopped smoking many years ago (Acute) History of hysteroscopy (Acute) Ovarian cyst (Acute) Peripheral edema (Acute) Peripheral neuropathy (Acute) KENNA (stress urinary incontinence, female) (Acute) Sciatica (Acute) Surgical History History of arthroplasty of right knee (Acute) History of arthroscopy of both knees (Acute) History of lumpectomy of right breast (Acute) Hx of appendectomy (Acute) Hx of eye surgery (Acute ~07/2015) Hx of oophorectomy (Acute) Hx of tonsillectomy (Acute) Status post Mohs surgery (Acute) Status post bilateral cataract extraction (Acute ~2014) Status post surgery (09/17/16) Social History household members: spouse Smoking Status: Former smoker alcohol intake: current Social History household members: spouse Smoking Status: Former smoker alcohol intake: current Exam Initial Vital Signs Initial Vital Signs: Vital Signs Temperature 98.8 F 06/01/18 14:40 Pulse Rate 83 06/01/18 14:40 Respiratory Rate 16 06/01/18 14:40 Blood Pressure 176/69 H 06/01/18 14:40 Pulse Oximetry 95 06/01/18 14:40 Const General: cooperative and well developed Nutritional Appearance: well nourished Orientation: alert, awake, oriented x3 and not confused [facility] Head: normocephalic and atraumatic Ears: external ears normal Nose: external nose normal and No nasal discharge Face and sinus: face symmetric and No dry mucous membranes Mouth: oral mucosae normal and moist mucous membranes Teeth and gingiva: dentition normal Eyes General: appearance normal, both eyes and all related structures Eyelids: eyelids normal Conjunctivae: conjunctivae normal Sclera: sclerae normal Pupils: PERRL EOM: EOM intact bilaterally Neck Neck: normal visual inspection, trachea midline, No lymphadenopathy, No midline deformity and No JVD Lymphatic: No lymphedema Chest Chest: normal inspection of the chest Resp Effort & Inspection: normal respiratory effort, able to speak in complete sentences, no respiratory distress and no use of accessory muscles Auscultation: clear to auscultation bilaterally, no rales, no rhonchi and no wheezes Cardio Rate: regular rate Rhythm: regular rhythm Heart Sounds: no click, no gallops, no murmurs and no rubs Pulses: normal peripheral pulses GI Inspection: non-distended Palpation: soft, no hepatosplenomegaly, No guarding, No pulsatile mass and No tender Auscultation: normal bowel sounds Back/Spine/Pelvis Back: No CVA tenderness Cervical Spine: cervical ROM normal and No pain with cervical ROM Thoracic/Lumbar Spine: thoracic and lumbar spine normal to inspection Skin General: no rashes or lesions noted, No jaundice and No petechiae Neuro General: alert, oriented x3, gait normal and no focal motor deficits Speech: speech normal Extrem General: full ROM, no clubbing, cyanosis or edema, no pedal edema and no calf tenderness Psych Appearance: well kempt Mental Status: mental status grossly normal Attitude: cooperative Thought Content: normal and suicidality Judgment: judgment good Course Course Narrative: The patient was very well-appearing, and reported symptoms that had been going on on and off for many years. However, the symptoms were somewhat more persistent than they had been previously, which had driven the patient to come to the emergency department. I did discuss with the patient that certainly this may be her GERD and that this could cause chest pressure with radiation to the mandible. However, I did also discuss that the patient does have some cardiac risk factors, including her age, history of hypertension, and history of smoking, though this is more remote. As such, I felt the patient should have a cardiac workup. This was initiated, with laboratory studies, EKG, chest x-ray, all of which were unremarkable. I discussed with the patient that she would need a repeat troponin, which was also unremarkable. Patient reported marked improvement after GI cocktail and Protonix. She had also received aspirin in the emergency department. I did give Dr. Ponce a call to explain the situation to her, along with my concern in the setting of ortega russell's current symptoms that the patient has not had a stress test any time recently, to demonstrate low likelihood of coronary artery disease. Dr. Ponce stated that the patient could follow up with her in an expedited fashion, and that she should call the office the next day to make an appointment. I discussed all this with the patient and her friend, and the patient was agreeable. We have discussed the usual indications for return, and I have emphasized to the patient that she must return immediately should any of the symptoms worsen. Patient expressed understanding. Orders Ordered: Discontinued Medications Aspirin (Aspirin Chew) 324 mg PO NOW ONE Stop: 06/01/18 14:41 Last Admin: 06/01/18 15:12 Dose: 324 mg Al Hydrox/Mg Hydrox/Simethicone 20 ml/ Lidocaine HCl 15 ml 0 ml PO NOW ONE Stop: 06/01/18 15:46 Last Admin: 06/01/18 16:01 Dose: 20 ml Sodium Chloride (Normal Saline 0.9%) 1,000 mls @ 150 mls/hr IV CONT JERRY Last Admin: 06/01/18 15:32 Dose: Not Given Pantoprazole Sodium (Protonix) 40 mg IV NOW ONE Stop: 06/01/18 15:46 Last Admin: 06/01/18 16:02 Dose: Not Given Pantoprazole Sodium (Protonix) 20 mg PO NOW ONE Stop: 06/01/18 15:52 Last Admin: 06/01/18 16:01 Dose: 20 mg Vital Signs - 8 hr 06/01/18 14:40 06/01/18 15:27 Temperature 98.8 F Pulse Rate 83 77 Respiratory Rate 16 19 Blood Pressure 176/69 H Blood Pressure [Left Arm] 167/64 H Pulse Oximetry 95 MDM - Chest Pain Medical Records Data Attestation: I reviewed the patient's medical records. Lab Data Attestation: I reviewed the patient's lab results. Result diagrams: 06/01/18 14:42 06/01/18 14:42 Lab Results 06/01/18 06/01/18 06/01/18 Range/Units 14:42 14:42 17:47 WBC 10.0 (4.5-11.0) X10^3/uL RBC 3.71 L (4.0-5.2) X10^6/uL Hgb 11.8 L (12.0-16.0) g/dL Hct 34.4 L (36-46) % MCV 92.7 (80-100) fL MCH 31.9 (26-34) PG MCHC 34.4 (30-36) % RDW 14.3 (11.6-14.8) % Plt Count 358 (150-400) X10^3/uL Neut % (Auto) 69.6 (50-75) % Lymph % (Auto) 12.0 L (25-40) % [place] % (Auto) 6.2 (3-14) % Eos % (Auto) 11.3 H (2-4) % Baso % (Auto) 0.9 (0-2) % Neut # (Auto) 7000 (3352-9221) /uL Lymph # (Auto) 1200 (6568-5991) /uL [place] # (Auto) 600 (0-900) /uL Eos # (Auto) 1100 H (0-450) /uL Baso # (Auto) 100 (0-100) /uL Sodium 135 L (137-145) mmol/L Potassium 4.2 (3.4-5.1) mmol/L Chloride 99 (98-107) mmol/L Carbon Dioxide 27 (22-32) mmol/L BUN 17 (7-17) mg/dL Creatinine 0.60 (0.52-1.04) mg/dL Estimated GFR > 60.0 (>60) mL/min BUN/Creatinine Ratio 28.3 H (6-22) Glucose 179 H (80-110) mg/dL Calcium 9.4 (8.4-10.2) mg/dL Total Bilirubin 0.4 (0.2-1.3) mg/dL AST 93 H (14-36) IU/L ALT 76 H (9-52) IU/L Alkaline Phosphatase 124 (38-126) U/L Total Creatine Kinase 62 (30-135) U/L CK-MB (CK-2) TNP CK-MB (CK-2) Rel Index TNP Troponin I < 0.012 < 0.012 (0.01-0.034) ng/mL Total Protein 7.2 (6.3-8.2) g/dL Albumin 4.1 (3.5-5.0) g/dL Globulin 3.1 (1.7-4.1) g/dL Albumin/Globulin Ratio 1.3 (1.0-2.8) Lipase 157 (23-300) U/L Urine Dip Bedside Urine Glucose Negative Bedside Urine Bilirubin - Negative Bedside Urine Ketone - Negative Urine Specific [place] 1.010 Bedside Urine Occult Blood - Negative Bedside Urine pH 6.0 Bedside Urine Protein - Negative Bedside Urine Urobilinogen - Negative Bedside Urine Nitrite - Negative Bedside Urine Leukocytes - Negative Esterase Imaging Data Chest x-ray: Attestation: I personally reviewed and interpreted this imaging study as follows: My impression: Negative Radiologist's impression: [address] [address] XRay Report Signed Patient: Akanksha Ghotra CMR#: [id number] : 4Acct:[id number] Age/Sex: 72 / FDate of Service: 06/01/18 Loc: ED Accession Number: [id number] Procedure: XR chest 1V Ordering Provider: Soo Mckinley MD PROCEDURE: XR CHEST 1V INDICATIONS: chest pain TECHNIQUE: One view of the chest was acquired. COMPARISON: [facility], ROSIE, XR CHEST 2V, 03/09/2018, 10:57. FINDINGS: Surgical changes and devices: Surgical clips are noted in the region of right breast. Lungs and pleura: Lungs are clear. No pleural effusions or pneumothorax. Mediastinum: Mediastinal contours appear normal. Heart size is normal. Bones and chest wall: No suspicious bony lesions. Overlying soft tissues appear unremarkable. IMPRESSION: No gross acute cardiopulmonary pathology. Dictated by: Yordy Klein M.D. on 06/01/2018 at 15:21 Approved by: Yordy Klein M.D. on 06/01/2018 at 15:22 ECG Data Attestation: I personally reviewed and interpreted this ECG as follows: (See below) Interpretation: Twelve lead EKG performed, showing the following: Regular ventricular rhythm with a normal rate; no ectopy; no significant ST T wave changes; P waves present and correlating well with QRS complexes at normal intervals. Interpretation: Normal sinus rhythm, no signs of acute ischemia or dysrhythmia as interpreted by ED MD. Discharge Plan Departure Patient Disposition: Home Clinical Impression: GERD (gastroesophageal reflux disease) Qualifiers: Esophagitis presence: esophagitis presence not specified Qualified Code(s): K21.9 - Gastro-esophageal reflux disease without esophagitis Chest pain Qualifiers: Chest pain type: unspecified Qualified Code(s): R07.9 - Chest pain, unspecified Discharge Date/Time: 06/01/18 19:01 Interventions: ED Discharge Assessment Last Done: 06/01/18 18:59 Instructions: DI for Chest Pain Activity Restrictions/Additional Instructions: Your labs look good, including 2 sets of cardiac enzymes. Her case has been discussed with Dr. boni gutiérrez, your primary doctor, and she would like to see you in follow-up regarding her chest pain. she says her office will call you t omorrow to set up an appointment. If you do not hear from them by noon, please give them a call to make sure that you have an appointment set up in a timely manner. Prescriptions: No Action nitrofurantoin macrocrystal 100 mg capsule 100 mg PO BID Qty: 10 RF: 0 gabapentin 600 mg tablet 600 mg PO QID Qty: 360 RF: 3 metformin [Glucophage] 500 mg tablet 500 mg PO BID Qty: 180 RF: 3 trospium 20 mg tablet 20 mg PO BID RF: 0 acetaminophen 325 mg Tablet 975 mg PO TID Qty: 60 RF: 0 aspirin 81 mg Tablet,Delayed Release (Dr/Ec) 81 mg PO BID Qty: 60 RF: 0 oxycodone 5 mg Tablet 5 mg PO Q4-6H PRN (Reason: Pain, Moderate (4-6)) Qty: 50 RF: 0 amlodipine [Norvasc] 5 mg tablet 5 mg PO DAILY RF: 0 duloxetine [Cymbalta] 60 mg capsule,delayed release(DR/EC) 60 mg PO DAILY RF: 0 meloxicam [Mobic] 15 mg tablet 15 mg PO DAILY RF: 0 levothyroxine 112 mcg tablet 112 mcg PO DAILY RF: 0 ascorbic acid (vitamin C) [Vitamin C] 500 mg Tablet 500 mg PO DAILY RF: 0 Referrals: Ingrid Ponce DO [Primary Care Provider] -
== END 2018-06-01 19:01 | disposition home or self-care (01) ==
PROVIDERS: Emergency Provider Emergency Medicine; PCP Family Medicine
DX: K21.9 Gastro-esophageal reflux disease without esophagitis (principal); R07.9 Chest pain, unspecified
CPT/HCPCS: 36415; 71045; 80053; 81003; 82550; 83690; 84484; 85025; 93005; 99285

== ENCOUNTER → 2018-06-21 12:54 | Outpatient (CLI) | payer MEDICARE, OTHER, SELFPAY ==
[2018-05-16 15:12] VITALS: BMI 42.5
== END ==
PROVIDERS: PCP Family Medicine; Visit Provider Family Medicine
DX: A04.8 Other specified bacterial intestinal infections (principal)
CPT/HCPCS: 83013

== ENCOUNTER → 2019-02-02 10:37 | Outpatient (CLI) | payer MEDICARE, OTHER, SELFPAY ==
[2018-05-16 15:12] VITALS: BMI 42.5
[2019-02-02 11:51] LABS: Hemoglobin A1C% w Est Avg Glu 6.5 % (4.0-6.0)
[2019-02-02 12:03] LABS: Creatinine Urine Random 122.8 mg/dL
[2019-02-02 12:05] LABS: Alanine Aminotransferase 39 IU/L (<35); Albumin 4.4 g/dL (3.5-5.0); Albumin Globulin Ratio 1.6 (1.0-2.8); Alkaline Phosphatase 86 U/L (38-126); Aspartate Aminotransferase 42 IU/L (14-36); Bilirubin Total 0.8 mg/dL (0.2-1.3); Blood Urea Nitrogen 18 mg/dL (7-17); Calcium 9.6 mg/dL (8.4-10.2); Carbon Dioxide 27 mmol/L (22-32); Chloride 103 mmol/L (98-107); Estimated Glomerular Filt Rate > 60.0 mL/min (>60); Globulin 2.8 g/dL (1.7-4.1); Glucose 134 mg/dL (80-110); HEMOLYSIS < 15 (0-50); Potassium 4.4 mmol/L (3.4-5.1); Sodium 138 mmol/L (137-145); Total Protein 7.2 g/dL (6.3-8.2)
[2019-02-02 12:08] LABS: Microalbumi Creatinin Ratio Ur 11.4 ug/mg CR (<30); Microalbumin Urine Random 1.4 mg/dL (0-1.6)
[2019-02-02 12:23] LABS: Free T3, Triiodothyronine Free 3.01 pg/mL (2.77-5.27); Free T4, Direct Thyroxine 0.81 ng/dL (0.78-2.19)
[2019-02-02 12:36] LABS: Thyroid Stimulating Hormone 2.94 uIU/mL (0.47-4.68)
== END ==
PROVIDERS: PCP Family Medicine; Visit Provider Family Medicine
DX: I10 Essential (primary) hypertension (principal); E03.9 Hypothyroidism, unspecified; E11.8 Type 2 diabetes mellitus with unspecified complications
CPT/HCPCS: 36415; 80053; 82043; 82570; 83036; 84439; 84443; 84481

== ENCOUNTER → 2019-02-16 13:50 | Outpatient (CLI) | payer MEDICARE, OTHER, SELFPAY ==
[2018-05-16 15:12] VITALS: BMI 42.5
--- NOTE | 2019-02-16 13:54 | DI.RAD.S_ITS ---
PROCEDURE: XR CHEST 2V INDICATIONS: shortness of breath TECHNIQUE: 2 views of the chest were acquired. COMPARISON: [facility], , XR CHEST 1V, 06/01/2018, 14:52. FINDINGS: Surgical changes and devices: None. Lungs and pleura: Lungs are clear. No pleural effusions or pneumothorax. Mediastinum: Mediastinal contours are normal. Heart size is normal. Bones and chest wall: No suspicious bony abnormalities. Soft tissues appear unremarkable. IMPRESSION: No acute cardiopulmonary pathology. Dictated by: Yordy Klein M.D. on 02/16/2019 at 16:08 Approved by: Yordy Klein M.D. on 02/16/2019 at 16:09
--- NOTE | 2019-02-16 13:54 | DI.NM.S_ITS ---
PROCEDURE: NM FRANCISCA PERF SPECT R&S PHARM Rest and pharmacological stress myocardial perfusion SPECT with gated imaging and ejection fraction RADIOPHARMACEUTICAL: 26.8 mCi Tc-99m tetrafosmin IV at rest and 25.8 mCi Tc-99m tetrafosmin IV at peak effect of pharmacological stress. [id number] was performed. INDICATIONS: SOB TECHNIQUE: Radiopharmaceutical was injected at peak stress test, and also at rest. SPECT images were obtained. SPECT myocardial perfusion images were displayed in short axis, horizontal long axis, and vertical long axis views. Gated images were reviewed using myeasydocs software. COMPARISON: None. CARDIAC STRESS: A pharmacologic stress test was performed under the supervision of an attending staff, using an infusion of lexiscan 0.4mg IV X1. Hemodynamic data: There is normal blood pressure and heart rate response to pharmacologic stress. Symptoms: The patient denied anginal chest pain. Aminophylline: none EKG: No diagnostic changes of ischemia; no ectopy. FINDINGS: Raw data: There is good myocardial uptake of radiotracer. No significant motion artifacts. Blpe-tf-evtsm ratio is 0.33 (normal is less than 0.38 for tetrafosmin tracer). Left ventricle function: Gated images demonstrate normal left ventricular wall thickening. No segmental wall motion abnormalities. No transient ischemic dilation; TID is 1.0 (normal less than 1.3). Left ventricle resting end diastolic volume is 106 mL. Left ventricle stress ejection fraction is 74 ; normal range is above 45%. Myocardial perfusion: There is normal distribution of activity in the right and left ventricular myocardium. No fixed or reversible perfusion defects. IMPRESSION: Low risk, normal pharmaceutical nuclear stress test 1) No perfusion evidence of ischemia or infarction. 2) Normal left ventricular size, wall motion, and systolic function (EF post stress 74%). 3) No ECG evidence of ischemia. 4) No angina during the study. 5) No prior nuclear stress test available for comparison. Dictated by: Danny Castañeda MD on 02/26/2019 at 13:04 Approved by: Danny Castañeda MD on 02/26/2019 at 13:06
--- NOTE | 2019-02-16 15:27 | PM.TREADMILL ---
Cardiac Stress Test Report Referral & Results Date Patient Seen: 02/16/19 Requesting provider: Ingrid Ponce Indication: Shortness of breath Rest ECG: Unremarkable Procedure Note: After both written and verbal informed consent the patient had an IV started by the diagnostic imaging RN, and then was hooked up to the treadmill monitoring system. The Lexiscan material, and then the Cardiolite tracer, were administered sequentially. An additional 3 min was spent monitoring the patient while supine on the gurney. The patient had a normal response to all infused materials. Impression: Normal response as above, see perfusion imaging for details regarding possible ischemia Please note: Actual ECG tracings can be found in the PACS system.
== END ==
PROVIDERS: PCP Family Medicine; Visit Provider Family Medicine
DX: R06.02 Shortness of breath (principal)
CPT/HCPCS: 71046; 78452; 93016; 93017; 93018; A9502; J2785

== ENCOUNTER → 2019-02-27 13:42 | Outpatient (CLI) | payer MEDICARE, OTHER, SELFPAY ==
[2018-05-16 15:12] VITALS: BMI 42.5
--- NOTE | 2019-02-27 13:43 | DI.ECHO.S_ITS ---
[place] [facility]---------+ [facility] +---------+ : : [address] : : : : [id number] : : : : Phone: [phone] Echocardiogram Report + + :Name: FEDE WOOTEN Study Date: 02/27/2019 Height: 64 in : :[facility] Weight: 246 lb : : Gender: Female BSA: 2.1 m2 : :: 1945 Age: 73 yrs BP: 182/104 mmHg: :Reason For Study: SOB : : Performed By: Robbi Hawkins : :Referring: YEIMY ARROYO : + + Interpretation Summary The study quality was technically difficult. The ejection fraction is estimated to be 65-70%. There is moderate concentric left ventricular hypertrophy. There is no significant valvular heart disease. Procedure: A two-dimensional transthoracic echocardiogram with color flow and Doppler was performed. The study quality was technically difficult. There is no prior echocardiogram noted for this patient. The patient was in normal sinus rhythm during the exam. Left Ventricle: The left ventricle is normal in size. There is moderate concentric left ventricular hypertrophy. Left ventricular systolic function is normal. The ejection fraction is estimated to be 65-70%. Left ventricular wall motion is normal. Right Ventricle: The right ventricle is mild to moderately dilated. The right ventricular systolic function is normal. Atria: The left atrium is not well visualized. Right atrium not well visualized secondary to technical limitations. The interatrial septum is intact with no evidence for an atrial septal defect. Mitral Valve: The mitral valve is normal in structure and function. There is trace mitral regurgitation. Aortic Valve: The aortic valve is not well visualized. The aortic valve opens well. No aortic regurgitation is present. Tricuspid Valve: The tricuspid valve is normal in structure and function. There is trace tricuspid regurgitation. Pulmonary artery pressures cannot be estimated because of the lack of a measurable TR jet velocity. Pulmonic Valve: The pulmonic valve is not well visualized. Great Vessels: The aortic root is normal size. The dimensions of the ascending aorta are normal. The pulmonary artery is normal size. The IVC is of normal diameter and collapses greater than 50% with a sniff. This suggests a low right atrial pressure of 3 mm Hg. Pericardium/ Pleura There is no pericardial effusion. There is no pleural effusion. MMode/2D Measurements & Calculations LVIDd: 3.7 cm LVOT diam: 1.9 cm LVIDs: 2.6 cm Ao root diam: 3.0 cm FS: 29.0 % EPSS: 0.45 cm IVSd: 1.5 cm LVPWd: 1.5 cm LV avendaño. diameter/BSA (cm/m^2): 1.7 LV sys. diameter/BSA (cm/m^2): 1.2 LA A4 area: 16.4 cm2 LA length (vol): 5.1 cm Doppler Measurements & Calculations Ao V2 max: 166.4 cm/sec LVOT Max Coy: 117.7 cm/sec Ao V2 mean: 121.6 cm/sec LV V1 max P.5 mmHg Ao max P.1 mmHg LV V1 VTI: 26.5 cm Ao mean P.5 mmHg ROSE(I,D): 2.2 cm2 Ao V2 VTI: 35.7 cm ROSE(V,D): 2.1 cm2 sev ratio: 0.74 ROSE indexed to BSA (cm^2/m^2): 1.0 MV E max coy: 68.8 cm/sec SV(LVOT): 77.4 ml MV A max coy: 87.3 cm/sec MV E/A: 0.79 Med Peak E' Coy: 6.3 cm/sec E/E' med: 10.9 Lat Peak E' Coy: 8.4 cm/sec E/E' lat: 8.2 E/e' average: 9.6 MV dec time: 0.28 sec Reading Physician:09:05 AM
== END ==
PROVIDERS: PCP Family Medicine; Visit Provider Family Medicine
DX: R06.02 Shortness of breath (principal)
CPT/HCPCS: 93306

== ENCOUNTER → 2019-05-08 12:45 | Outpatient (CLI) | payer MEDICARE, OTHER, SELFPAY ==
[2018-05-16 15:12] VITALS: BMI 42.5
--- NOTE | 2019-05-08 12:47 | DI.US.S_ITS ---
LIMITED ULTRASOUND OF RIGHT BREAST: 05/08/2019 CLINICAL: Right breast pain. Comparison is made to exams dated: 04/17/2018 mammogram and 05/25/2017 mammogram - [facility]. Real-time ultrasound of the right breast lower aspect was performed. Dudley scale images of the real-time examination were reviewed. No significant abnormalities were seen sonographically in the right breast. Specifically, no finding to correspond to the patient's pain. IMPRESSION: NEGATIVE There is no sonographic evidence of malignancy. No mammographic or sonographic finding to explain patient's breast pain. Return to annual mammogram screening schedule is recommended. Findings and recommendations were conveyed to the patient at time of exam. This exam was interpreted at Station ID: [id number]. Electronically Signed By: Norma carver/:05/08/2019 14:11:59 letter sent: Normal Exam Ultrasound BI-RADS: 1 Negative
--- NOTE | 2019-05-08 12:47 | DI.MG.S_ITS ---
BILATERAL DIGITAL DIAGNOSTIC MAMMOGRAM 3D/2D POST LUMPECTOMY: 05/08/2019 CLINICAL: Right breast tenderness. Comparison is made to exams dated: 04/17/2018 mammogram, 05/25/2017 localization, 05/25/2017 mammogram, 04/11/2017 localization, and 02/10/2017 breast MRI - [facility]. The tissue of both breasts is heterogeneously dense. This may lower the sensitivity of mammography. There are stable surgical clips in the right breast at 2 o'clock in the anterior and middle depth. No significant masses, calcifications, or other findings are seen in either breast. Specifically, no finding to correspond to the patient's pain along the inferior right breast. IMPRESSION: INCOMPLETE: NEEDS ADDITIONAL IMAGING EVALUATION There is no abnormality seen in the right breast to correspond with the pain in the inferior aspect, however, ultrasound is recommended. This was performed immediately following this exam. Left breast mammograms are stable. This exam was interpreted at Station ID: [id number]. NOTE: For mammograms, a report in lay terms will be sent to the patient. Approximately 15% of breast malignancies will not be visualized mammographically. In the management of a palpable breast mass, a negative mammogram must not discourage biopsy of a clinically suspicious lesion. Electronically Signed By: Norma carver/:05/08/2019 13:59:20 ACR BI-RADS Category 0: Incomplete [id number]
== END ==
PROVIDERS: PCP Family Medicine; Referring Provider Family Medicine; Visit Provider Family Medicine
DX: R92.8 Other abnormal and inconclusive findings on diagnostic imaging of breast (principal); N64.4 Mastodynia
CPT/HCPCS: 76642; 77066; G0279

== ENCOUNTER → 2019-12-28 12:53 | Outpatient (CLI) | payer MEDICARE, OTHER, SELFPAY ==
[2018-05-16 15:12] VITALS: BMI 42.5
[2019-12-28 13:54] LABS: COVID19 -Nasal RAPID Negative (Negative)
== END ==
PROVIDERS: PCP Family Medicine; Referring Provider Internal Medicine; Visit Provider Internal Medicine
DX: Z11.59 Encounter for screening for other viral diseases (principal)
CPT/HCPCS: 87635; C9803

== ENCOUNTER → 2019-12-28 14:58 | Outpatient (CLI) | payer MEDICARE, OTHER, SELFPAY ==
[2018-05-16 15:12] VITALS: BMI 42.5
--- NOTE | 2020-01-06 10:29 | PM.PFT.1 ---
Pulmonary Function Test Referral & Results Date Patient Seen: 12/28/19 Requesting provider: Ingrid Ponce Results: The spirometry demonstrates an FVC of 1.92 L which is 69% of predicted. The FEV1 was measured at 1.57 L which is 75% of predicted. The FEV1/FVC ratio was 82 which is 110% of predicted. Following the administration of bronchodilator there was no appreciable change. Lung volumes show an SVC of 1.92 L which is 69% of predicted. The diffusing capacity was measured at 14.31 which is 58% of predicted. No hemoglobin value was provided, so no correction for potential anemia could be made, if appropriate. The maximum voluntary ventilation was reduced Interpretation: This study shows restrictive lung disease based on reduction SVC. There is also minimal reduction in FEV1 suggest the possibility of obstructive lung disease although FEV1/FVC ratio was normal and there was no improvement following bronchodilator. There is also moderate reduction in diffusing capacity suggesting element of disease at the capillary alveolar level Overall this is most consistent with a restrictive lung disease than anything else. Clinical correlation suggested
== END ==
PROVIDERS: PCP Family Medicine; Referring Provider Family Medicine; Visit Provider Family Medicine
DX: R06.02 Shortness of breath (principal); Z20.828 Contact with and (suspected) exposure to other viral communicable diseases
CPT/HCPCS: 87635; 94060; 94726; 94729; C9803

== ENCOUNTER → 2020-01-10 09:37 | Outpatient (CLI) | payer MEDICARE, OTHER, SELFPAY ==
[2018-05-16 15:12] VITALS: BMI 42.5
[2020-01-10 11:01] LABS: Hemoglobin A1C% w Est Avg Glu 8.3 % (4.0-6.0)
[2020-01-10 11:16] LABS: Alanine Aminotransferase 40 IU/L (<35); Albumin 4.1 g/dL (3.5-5.0); Albumin Globulin Ratio 1.4 (1.0-2.8); Alkaline Phosphatase 110 U/L (38-126); Aspartate Aminotransferase 40 IU/L (14-36); BUN Creatinine Ratio 32.1 (6-22); Bilirubin Total 0.8 mg/dL (0.2-1.3); Blood Urea Nitrogen 17 mg/dL (7-17); Carbon Dioxide 32 mmol/L (22-32); Chloride 104 mmol/L (98-107); Cholesterol 173 mg/dL (140-199); Estimated Glomerular Filt Rate > 60.0 mL/min (>60); Globulin 2.9 g/dL (1.7-4.1); Glucose 186 mg/dL (80-110); HDL Cholesterol 67 mg/dL (40-60); HEMOLYSIS < 15 (0-50); LDL Cholesterol Calculated 84 mg/dL (<100); Potassium 4.3 mmol/L (3.4-5.1); Sodium 137 mmol/L (137-145); Triglycerides 108 mg/dL (35-150)
[2020-01-10 11:44] LABS: TSH w/ Reflex to FT4 0.55 uIU/mL (0.47-4.68)
== END ==
PROVIDERS: PCP Family Medicine; Referring Provider Family Medicine; Visit Provider Family Medicine
DX: E03.9 Hypothyroidism, unspecified (principal); E11.8 Type 2 diabetes mellitus with unspecified complications; E66.01 Morbid (severe) obesity due to excess calories; E78.5 Hyperlipidemia, unspecified; G90.09 Other idiopathic peripheral autonomic neuropathy; I10 Essential (primary) hypertension; Z68.41 Body mass index [BMI] 40.0-44.9, adult
CPT/HCPCS: 36415; 80053; 80061; 83036; 84443

== ENCOUNTER → 2020-01-30 10:14 | Outpatient (CLI) | payer MEDICARE, OTHER, SELFPAY ==
[2018-05-16 15:12] VITALS: BMI 42.5
[2020-01-30 14:56] LABS: Appearance Urine UA CLOUDY; Bilirubin Urine UA NEGATIVE (NEGATIVE); Color Urine UA YELLOW; Glucose Urine UA NEGATIVE (Negative); Ketones Urine UA NEGATIVE (NEGATIVE); Leukocyte Esterase Urine UA 2+ (NEGATIVE); Nitrite Urine UA POSITIVE (Negative); Occult Blood Urine UA 3+ (Negative); Protein Urine UA TRACE (Negative); Specific Gravity Urine UA 1.025 (1.000-1.035); Urobilinogen Urine UA 0.2 E.U./dL (0.2)
[2020-01-30 15:02] LABS: pH Urine UA 5.5 (4.5-8.0)
[2020-01-30 15:24] LABS: Bacteria Urine Many (>30); Culture Indicated Urine Specimen Cultured; RBC Urine 30-100/HPF (0-5/HPF); Squamous Epithelial Cell Urine 0-1 /HPF (0-5/HPF); WBC Urine >100/HPF (0-5/HPF)
== END ==
PROVIDERS: PCP Family Medicine; Referring Provider Family Medicine; Visit Provider Family Medicine
DX: R30.0 Dysuria (principal)
CPT/HCPCS: 81001; 87077; 87086; 87186

== ENCOUNTER → 2020-03-11 14:18 | Outpatient (CLI) | payer MEDICARE, OTHER, SELFPAY ==
[2018-05-16 15:12] VITALS: BMI 42.5
--- NOTE | 2020-03-11 14:35 | DI.CT.S_ITS ---
PROCEDURE: CT CHEST HIGH RESOLUTION INDICATIONS: Dyspnea, unspecified TECHNIQUE: Noncontrast 1.0 and 5.0 mm thick contiguous axial sections from the pulmonary apex to the posterior costophrenic angles, with 7 mm thick coronal and sagittal MIP reformats. 1 mm thick dynamic expiratory images acquired through the upper, mid, and lower lungs. 1.0 mm thick axial sections acquired from the blanche to the posterior costophrenic angles in the prone end-inspiration position. For radiation dose reduction, the following was used: automated exposure control, adjustment of mA and/or kV according to patient size. COMPARISON: None. FINDINGS: Image quality: Excellent. Lungs: Scattered subsegmental atelectasis and/or scarring. No focal consolidation. Airway thickening in keeping with nonspecific bronchitis and/or reactive airways disease. No definite bronchiectasis is seen. There are scattered ill-defined peripheral ground-glass and hazy opacities. No definite honeycombing appearance. No mosaic lung attenuation is seen. Pleura: No pleural effusions or pneumothorax. Mediastinum: Heart size is normal. Coronary artery calcifications are present. These are mild in degree paragraphs No pericardial effusion. Thoracic aorta and central pulmonary arteries are normal in size. Small hiatal hernia. Bones and chest wall: No suspicious bony lesions. No vertebral body compression fractures. Abdomen: Scattered punctate hepatic calcifications presumably from prior granulomatous disease. IMPRESSION: Nonspecific scarring/atelectasis. No definite specific findings to suggest fibrosis. No honeycombing appearance. Airway thickening in keeping with nonspecific bronchitis and/or reactive airways disease. Dictated by: Herminio Ceballos M.D. on 03/11/2020 at 15:52 Approved by: Herminio Ceballos M.D. on 03/11/2020 at 16:11
== END ==
PROVIDERS: PCP Family Medicine; Referring Provider Internal Medicine Critical Care Medicine; Visit Provider Internal Medicine Critical Care Medicine
DX: R06.00 Dyspnea, unspecified (principal); I25.10 Atherosclerotic heart disease of native coronary artery without angina pectoris; K44.9 Diaphragmatic hernia without obstruction or gangrene
CPT/HCPCS: 71250

== ENCOUNTER → 2020-03-14 13:06 | Outpatient (CLI) | payer MEDICARE, OTHER, SELFPAY ==
[2018-05-16 15:12] VITALS: BMI 42.5
== END ==
PROVIDERS: PCP Family Medicine; Visit Provider Physician Assistant
DX: N34.3 Urethral syndrome, unspecified (principal)
CPT/HCPCS: 87077; 87086; 87186

== ENCOUNTER → 2020-03-28 10:19 | Outpatient (CLI) | payer MEDICARE, OTHER, SELFPAY ==
[2018-05-16 15:12] VITALS: BMI 42.5
[2020-03-28 10:46] LABS: Bacteria Urine None Seen
[2020-03-28 11:05] LABS: Add Manual Diff / Slide Review NO; Basophils Absolute Auto 100 /uL (0-100); Eosinophils Absolute Auto 300 /uL (0-450); Eosinophils Percent Auto 5.6 % (2-4); Hematocrit 41.5 % (36-46); Hemoglobin 14.1 g/dL (12.0-16.0); Lymphocytes Absolute Auto 1600 /uL (1100-4500); Lymphocytes Percent Auto 26.5 % (25-40); Mean Corpuscular Hemoglobin 32.1 PG (26-34); Mean Corpuscular Volume 94.7 fL (80-100); Monocytes Absolute Auto 400 /uL (0-900); Monocytes Percent Auto 7.7 % (3-14); Neutrophils Absolute Auto 3500 /uL (1500-7000); Neutrophils Percent Auto 59.2 % (50-75); Platelet Count 212 X10^3/uL (150-400); Red Blood Cell Count 4.38 X10^6/uL (4.0-5.2); Red Cell Distribution Width 14.3 % (11.6-14.8); White Blood Cell Count 5.9 X10^3/uL (4.5-11.0)
[2020-03-28 11:30] LABS: Appearance Urine UA CLEAR
[2020-03-28 12:23] LABS: Alanine Aminotransferase 37 IU/L (<35); Albumin Globulin Ratio 1.4 (1.0-2.8); Alkaline Phosphatase 97 U/L (38-126); Aspartate Aminotransferase 35 IU/L (14-36); BUN Creatinine Ratio 30.5 (6-22); Bilirubin Total 0.8 mg/dL (0.2-1.3); Blood Urea Nitrogen 18 mg/dL (7-17); Calcium 9.2 mg/dL (8.4-10.2); Carbon Dioxide 31 mmol/L (22-32); Chloride 104 mmol/L (98-107); Estimated Glomerular Filt Rate > 60.0 mL/min (>60); Globulin 2.9 g/dL (1.7-4.1); Glucose 165 mg/dL (80-110); HEMOLYSIS < 15 (0-50); Potassium 4.3 mmol/L (3.4-5.1); Sodium 136 mmol/L (137-145); Total Protein 6.9 g/dL (6.3-8.2)
[2020-03-28 12:47] LABS: Color Urine UA ORANGE
[2020-03-28 12:52] LABS: RBC Urine 1-5/HPF (0-5/HPF); WBC Urine 5-10/HPF (0-5/HPF)
[2020-03-28 12:53] LABS: Culture Indicated Urine Specimen Cultured; Squamous Epithelial Cell Urine 0-1 /HPF (0-5/HPF)
[2020-03-28 13:22] LABS: Hemoglobin A1C% w Est Avg Glu 7.2 % (4.0-6.0)
[2020-03-28 13:27] LABS: Creatinine Urine Random 106.5 mg/dL
[2020-03-28 13:33] LABS: Microalbumi Creatinin Ratio Ur 11.2 ug/mg CR (<30); Microalbumin Urine Random 1.2 mg/dL (0-1.6)
== END ==
PROVIDERS: PCP Family Medicine; Referring Provider Family Medicine; Visit Provider Family Medicine
DX: N30.01 Acute cystitis with hematuria (principal); E11.8 Type 2 diabetes mellitus with unspecified complications; N18.9 Chronic kidney disease, unspecified; E03.9 Hypothyroidism, unspecified; E66.01 Morbid (severe) obesity due to excess calories; E78.5 Hyperlipidemia, unspecified; G90.09 Other idiopathic peripheral autonomic neuropathy; I10 Essential (primary) hypertension; Z68.41 Body mass index [BMI] 40.0-44.9, adult
CPT/HCPCS: 36415; 80053; 81001; 82043; 82570; 83036; 85025; 87086

== ENCOUNTER → 2020-04-10 11:01 | Outpatient (CLI) | payer MEDICARE, OTHER, SELFPAY ==
[2018-05-16 15:12] VITALS: BMI 42.5
--- NOTE | 2020-04-10 12:01 | DIET.PN ---
Diabetes Intake: Initial Assessment Assess: Pt with 3 yr hx of diabetes. 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 She swims 2-3 x/wk. Severe neuropathy possibly associated with an accident injuring her back. Recent lactose and caffeine intolerance. Labs: Per pt report: A1c: 7.2 Meds: metformin 1000mg BID; gabapentin Diet: per 24 hr recall: B: cereal w/ banana; oatmeal; eggs L: sandwich; leftovers, fruit; salad D: pro, starch, veg Sn: cuties; carb balance ice cream bar Wt: 243lb Ht: 64lb BMI: 41.7 BP: DX: Altered nutrition related laboratory values related to impaired glucose metabolism, lack of previous exposure to nutrition information as evidenced by pt report, diagnosis of diabetes, previous diet high in refined carbohydrates. Intervention: 1. Completed intake assessment. Discussed barriers to care. 2. Discussed pathophysiology of diabetes. Reviewed A1c and its correlation to blood glucose numbers. Discussed recommended BG ranges. 3. Discussed importance of self-monitoring, how often, and when to check. 4. Reviewed hyper/hypoglycemia and treatment. 5. Reviewed safe disposal of equipment (strip/lancets/insulin needles). 6. Created SMART goals for pt self-care and success. 7. Discussed program curriculum outline and class needs based on individual goals. SMART Goals: 1. Pt goal weight of 150lbs and A1c of 7.0. Monitor/Evaluate: Pt will attend full DSME program. Basic Nutrition class scheduled for Sharyn Lam.
== END ==
PROVIDERS: PCP Family Medicine; Referring Provider Family Medicine; Visit Provider Family Medicine
DX: E11.9 Type 2 diabetes mellitus without complications (principal)
CPT/HCPCS: G0108

== ENCOUNTER → 2020-05-13 13:56 | Outpatient (CLI) | payer MEDICARE, OTHER, SELFPAY ==
[2018-05-16 15:12] VITALS: BMI 42.5
--- NOTE | 2020-05-13 15:15 | DIET.PN ---
Diabetes: Healthy Eating 1 Intervention: ? Discussed pathophysiology of diabetes and impact of nutrition/diet on blood sugar control.? Discussed fed versus non-fed state.?? ? Reviewed importance of Balance, Variety, and Moderation. ? Discussed the effect of carbohydrates/protein/fat on blood sugar control.? ? Stressed importance of consistent carbohydrate intake at each meal and provided instructions for recommended servings/portions of carbohydrates/protein per meal. Provided educational material. ? Reviewed carbohydrate counting and measuring carbohydrate content via serving sizes and reading nutrition labels.? Provided handouts.?? ? Discussed the difference between simple versus complex carbohydrates and the effect of fiber on blood sugar control.? Discussed various methods to increase fiber content in diet. ? Discussed the plate method for creating more carbohydrate conscious balanced meals. ? Stressed importance of meal timing and not going >4-5 hours between meals. Encouraged adding protein to evening snack to support glucose control overnight. ? Discussed importance of making dietary habits part of lifestyle change.
== END ==
PROVIDERS: PCP Family Medicine; Referring Provider Family Medicine; Visit Provider Family Medicine
DX: E11.9 Type 2 diabetes mellitus without complications (principal); Z71.3 Dietary counseling and surveillance
CPT/HCPCS: G0109

== ENCOUNTER → 2020-05-20 14:02 | Outpatient (CLI) | payer MEDICARE, OTHER, SELFPAY ==
[2018-05-16 15:12] VITALS: BMI 42.5
--- NOTE | 2020-05-20 15:54 | DIET.PN ---
Diabetes: Healthy Eating 2 Intervention: Fats effects on glucose, weight, heart disease, cholesterol Sat Vs Unsat Protein- animal and plant based options Low, med, high fat meats Sugar substitutes Sodium Health claims Grocery shopping guidelines Eating away from home Alcohol Sick day guidelines Ketone Testing
== END ==
PROVIDERS: PCP Family Medicine; Referring Provider Family Medicine; Visit Provider Family Medicine
DX: E11.9 Type 2 diabetes mellitus without complications (principal)
CPT/HCPCS: G0109

== ENCOUNTER → 2020-05-27 10:00 | Outpatient (CLI) | payer MEDICARE, OTHER, SELFPAY ==
[2018-05-16 15:12] VITALS: BMI 42.5
--- NOTE | 2020-05-27 13:11 | DIET.PN ---
Diabetes Physiology: Intervention 1. Diabetes physiology 2. Detecting and treatment of acute and chronic complications 3. Diagnosis of and difference in types of diabetes 4. Self-monitoring and pattern management a. Demonstrate glucometer and control testing b. Explain BG results and action to take when out of range. 5. Foot , eye, dental care 6. Medications a. Oral medication classification b. Injectable c. Insulin i. Injection protocol ii. Other delivery methods
== END ==
PROVIDERS: PCP Family Medicine; Referring Provider Family Medicine; Visit Provider Family Medicine
DX: E11.9 Type 2 diabetes mellitus without complications (principal); Z71.3 Dietary counseling and surveillance
CPT/HCPCS: G0109

== ENCOUNTER → 2020-05-29 09:17 | Outpatient (CLI) | payer MEDICARE, OTHER, SELFPAY ==
[2018-05-16 15:12] VITALS: BMI 42.5
[2020-05-29 10:11] LABS: Blood Urea Nitrogen 22 mg/dL (7-17); Calcium 9.5 mg/dL (8.4-10.2); Carbon Dioxide 27 mmol/L (22-32); Chloride 103 mmol/L (98-107); Estimated Glomerular Filt Rate > 60.0 mL/min (>60); Glucose 264 mg/dL (80-110); HEMOLYSIS < 15 (0-50); Potassium 4.2 mmol/L (3.4-5.1); Sodium 138 mmol/L (137-145)
== END ==
PROVIDERS: PCP Family Medicine; Referring Provider Family Medicine; Visit Provider Family Medicine
DX: E11.8 Type 2 diabetes mellitus with unspecified complications (principal); E78.2 Mixed hyperlipidemia; I10 Essential (primary) hypertension
CPT/HCPCS: 36415; 80048

== ENCOUNTER → 2020-06-03 14:04 | Outpatient (CLI) | payer MEDICARE, OTHER, SELFPAY ==
[2018-05-16 15:12] VITALS: BMI 42.5
== END ==
PROVIDERS: PCP Family Medicine; Visit Provider Physician Assistant
DX: R30.0 Dysuria (principal)
CPT/HCPCS: 87077; 87086; 87186

== ENCOUNTER → 2020-09-09 14:35 | Outpatient (CLI) | payer MEDICARE, OTHER, SELFPAY ==
[2018-05-16 15:12] VITALS: BMI 42.5
[2020-09-09 14:51] LABS: Appearance Urine UA SL CLOUDY; Bilirubin Urine UA NEGATIVE (NEGATIVE); Color Urine UA YELLOW; Glucose Urine UA NEGATIVE (Negative); Ketones Urine UA NEGATIVE (NEGATIVE); Leukocyte Esterase Urine UA 1+ (NEGATIVE); Nitrite Urine UA NEGATIVE (Negative); Occult Blood Urine UA NEGATIVE (Negative); Protein Urine UA NEGATIVE (Negative); Specific Gravity Urine UA 1.015 (1.000-1.035); Urobilinogen Urine UA 0.2 E.U./dL (0.2)
[2020-09-09 15:01] LABS: Bacteria Urine Many (>30); RBC Urine 1-5/HPF (0-5/HPF); WBC Urine 30-100/HPF (0-5/HPF)
[2020-09-09 15:02] LABS: Culture Indicated Urine Specimen Cultured
== END ==
PROVIDERS: PCP Family Medicine; Visit Provider Physician Assistant
DX: R30.9 Painful micturition, unspecified (principal)
CPT/HCPCS: 81001; 87077; 87086; 87186

== ENCOUNTER → 2020-10-25 15:32 | Outpatient (CLI) | payer MEDICARE, OTHER, SELFPAY ==
[2018-05-16 15:12] VITALS: BMI 42.5
== END ==
PROVIDERS: PCP Family Medicine; Visit Provider Nurse Practitioner Family
DX: R30.9 Painful micturition, unspecified (principal); N34.3 Urethral syndrome, unspecified
CPT/HCPCS: 87086; 87210

== ENCOUNTER → 2020-11-06 14:54 | Outpatient (CLI) | payer MEDICARE, OTHER, SELFPAY ==
[2018-05-16 15:12] VITALS: BMI 42.5
[2020-11-06 15:48] LABS: Hemoglobin A1C% w Est Avg Glu 7.8 % (4.0-6.0)
[2020-11-06 15:53] LABS: BUN Creatinine Ratio 31.8 (6-22); Blood Urea Nitrogen 21 mg/dL (7-17); Calcium 9.2 mg/dL (8.4-10.2); Carbon Dioxide 31 mmol/L (22-32); Chloride 102 mmol/L (98-107); Estimated Glomerular Filt Rate > 60.0 mL/min (>60); Glucose 124 mg/dL (80-110); HEMOLYSIS < 15 (0-50); Potassium 3.5 mmol/L (3.4-5.1); Sodium 138 mmol/L (137-145)
[2020-11-06 19:40] LABS: Bilirubin Urine UA NEGATIVE (NEGATIVE); Color Urine UA YELLOW; Glucose Urine UA NEGATIVE (Negative); Ketones Urine UA NEGATIVE (NEGATIVE); Leukocyte Esterase Urine UA 2+ (NEGATIVE); Nitrite Urine UA NEGATIVE (Negative); Occult Blood Urine UA NEGATIVE (Negative); Protein Urine UA NEGATIVE (Negative); Specific Gravity Urine UA <=1.005 (1.000-1.035); Urobilinogen Urine UA 0.2 E.U./dL (0.2)
[2020-11-06 19:58] LABS: Appearance Urine UA Slightly Cloudy; pH Urine UA 6.5 (4.5-8.0)
[2020-11-06 19:59] LABS: Bacteria Urine Many (>30); Culture Indicated Urine Specimen Cultured; RBC Urine None Seen (0-5/HPF); Squamous Epithelial Cell Urine 0-1 /HPF (0-5/HPF); WBC Urine 10-30/HPF (0-5/HPF)
== END ==
PROVIDERS: PCP Family Medicine; Referring Provider Registered Nurse; Visit Provider Registered Nurse
DX: R30.9 Painful micturition, unspecified (principal); E11.8 Type 2 diabetes mellitus with unspecified complications; E66.01 Morbid (severe) obesity due to excess calories; I10 Essential (primary) hypertension; Z68.41 Body mass index [BMI] 40.0-44.9, adult
CPT/HCPCS: 36415; 80048; 81003; 81015; 83036; 87077; 87086; 87186

== ENCOUNTER → 2021-02-10 12:39 | Outpatient (CLI) | payer MEDICARE, OTHER, SELFPAY ==
[2018-05-16 15:12] VITALS: BMI 42.5
[2021-02-10 13:56] LABS: Hemoglobin A1C% w Est Avg Glu 8.4 % (4.0-6.0)
[2021-02-10 14:53] LABS: TSH w/ Reflex to FT4 0.74 uIU/mL (0.47-4.68)
[2021-02-10 15:31] LABS: Alanine Aminotransferase 45 IU/L (<35); Albumin 4.4 g/dL (3.5-5.0); Albumin Globulin Ratio 1.4 (1.0-2.8); Alkaline Phosphatase 93 U/L (38-126); Aspartate Aminotransferase 46 IU/L (14-36); Bilirubin Total 0.8 mg/dL (0.2-1.3); Blood Urea Nitrogen 15 mg/dL (7-17); Calcium 10.5 mg/dL (8.4-10.2); Carbon Dioxide 31 mmol/L (22-32); Chloride 101 mmol/L (98-107); Cholesterol 212 mg/dL (140-199); Estimated Glomerular Filt Rate > 60.0 mL/min (>60); Globulin 3.1 g/dL (1.7-4.1); Glucose 149 mg/dL (80-110); HDL Cholesterol 79 mg/dL (40-60); HEMOLYSIS < 15 (0-50); LDL Cholesterol Calculated 84 mg/dL (<100); Potassium 4.2 mmol/L (3.4-5.1); Sodium 138 mmol/L (137-145); Total Protein 7.5 g/dL (6.3-8.2); Triglycerides 244 mg/dL (35-150)
== END ==
PROVIDERS: PCP Family Medicine; Referring Provider Family Medicine; Visit Provider Family Medicine
DX: E11.8 Type 2 diabetes mellitus with unspecified complications (principal); E03.9 Hypothyroidism, unspecified; I10 Essential (primary) hypertension
CPT/HCPCS: 36415; 80053; 80061; 83036; 84443

== ENCOUNTER → 2021-04-14 14:57 | Outpatient (CLI) | payer MEDICARE, OTHER, SELFPAY ==
[2018-05-16 15:12] VITALS: BMI 42.5
--- NOTE | 2021-04-16 16:05 | DIAB.MNT ---
Initial Diabetes Medical Nutrition Therapy Assessment Name: Akanksha Ghotra Date: 04/14/21 Time: 3-4p Dx: Type II Diabetes Provider: Kris Vale presents for initial visit regarding Type II. Completed most of DSME with previous [facility] in 2020, missed one class due to program closure. Neuropathy in LE before dm States her DM was well managed in 2019, however having to care for her with parkinson's and dementia has made it very difficult to manage her own health. States his health has declined significantly this year and he now resides at [facility]. With this change, she feels she can now cook for herself and better manage her DM. From classes last year, she remembers it is important to pair protein and carbs when eating. Wondering what to add to her cereal as protein. Also asking for easy lunch ideas Forgets to take Metformin at night. Trying to aim for senior physician meals. Avoiding bread, unless eating out. Loves bread. Trying to keep carbs to 15-30 meals or less at meals or sometimes none. Feeling satiated with this plan. Wanting more vegetables in her diet. Tired at night, tough to cook veggies. Plans to get under 200#. Would like to get off meds. Personal goal of 150#. Reports barriers to weight: H/o ?travelling rhuematological? disease. Impacts her joints and activity. H/o weight gain. H/o thyroid dx. Diet Recall: 8-9a: 1c oatbran cereal and 1/2 banana OR oatmeal and fruit (45g CHO) Lunch: nothing or something quick, cottage cheese, half burger (0-15g) Dinner: rice with protein +/- veg (30g reported) Anthropometrics: Ht: 64 Wt: 232# today Weight history: UBW reported 245# Physical Activity: Swimming 2-4 x per week 45 min sessions Self-Monitoring Blood Glucose: Has not checked in the last 1-2 weeks. 140-160 mg/dL FBG prior when ozempic was at .25mg. And was not consistent about evening Metformin. Currently up to 0.5mg. Reports a plan is to increase to max dose of 1mg with provider. Current Rx for 0.5. Diabetes Medications: Metformin 1000 mg BID Ozempic 0.5mg weekly Pertinent Labs: Hga1c 8.4% 02/2021 Past Medical History: (Last Reviewed 03/25/21 @ 11:15 by Rinku Alejandro MD) Abnormal LFTs Acquired hypothyroidism (08/28/10) Back pain Chronic bronchitis Colon polyps (08/28/10) Controlled diabetes mellitus type 2 with complications (11/25/14) Ductal carcinoma in situ (DCIS) of right breast Endometrial hyperplasia Essential hypertension (11/25/14) Fatigue due to sleep pattern disturbance (~04/2020) Former smoker, stopped smoking many years ago Quit 70's GERD (gastroesophageal reflux disease) (08/28/10) History of arthroplasty of right knee History of arthroscopy of both knees History of hysteroscopy w/polypectomy History of lumpectomy of right breast House dust mite allergy Hx of appendectomy Hx of eye surgery (~07/2015) Right eye muscle Hx of oophorectomy Hx of tonsillectomy Hypercalcemia Hyperlipidemia (08/28/10) Idiopathic peripheral autonomic neuropathy, unspecified (08/28/10) Lumbar stenosis Morbid obesity with body mass index (BMI) of 40.0 to 44.9 in adult (11/25/14) Nocturnal hypoxemia (~05/16/20) NSAID long-term use Obstructive sleep apnea hypopnea, moderate (~05/16/20) Ovarian cyst Peripheral edema Peripheral neuropathy Sciatica Snoring (~04/2020) Status post bilateral cataract extraction (~2014) Status post Mohs surgery KENNA (stress urinary incontinence, female) Uncontrolled diabetes mellitus Urinary tract infection UTI (urinary tract infection) Nutrition Rx: Carbohydrates: Meal: 30g Snack:15-30g Nutrition Diagnosis: - Intervention: This participant was very receptive. Provided appropriate educational handouts. Discussed the following topics: Completed intake assessment. Discussed barriers to care. Lunch ideas, meal planning, pairing, encouraged consistent intake Brainstormed appropriate meal plan based on food preferences Role of physical activity and following provider guidelines for safety Brainstormed ways to remember to take medication SMBG Impact of caregiving and self care Easy vegetables Created SMART goals for patient self-care and success. Goals: Take evening Metformin, use alarm Check FBG Check Tuesday after breakfast reading Try raw peppers Follow-up: MARLO FUENTES follow-up in 2-3 weeks Blanca Kearney RDN, GINA Certified Diabetes Care and Outpatient Admitting Clerk P: [phone] Thank you for this referral
== END ==
PROVIDERS: PCP Family Medicine; Referring Provider Family Medicine; Visit Provider Family Medicine
DX: E11.9 Type 2 diabetes mellitus without complications (principal)
CPT/HCPCS: 97802

== ENCOUNTER → 2021-05-05 14:32 | Outpatient (CLI) | payer MEDICARE, OTHER, SELFPAY ==
[2018-05-16 15:12] VITALS: BMI 42.5
--- NOTE | 2021-05-13 16:10 | DIAB.MNTFU ---
Follow-up Diabetes Medical Nutrition Therapy Assessment Name: Akanksha Ghotra Date: 05/05/21 Time: 235-330p Dx: Type II Diabetes Akanksha presents for follow-up regarding T2DM. Reports she is taking Metformin 1000mg BID. Using alarm to take meds, which is helping. Reports a little nausea in the middle of the day. Gets better with eating. Was going without eating 6-7 hours. Trying to be more consistent. Bought some bars to help with meal timing. Also purchased some raw vegetables to try. Considering keeping a food journal, which has helped her with nutrition goals in the past. Diet recall indicates limited protein at breakfast. Lunch seems balanced. Dinner is quite variable with having protein. Cont on Ozempic. Weight today down to 226.2#. Almost 5# loss since last visit. Seems very motivated by this. Anthropometrics: Ht: 64 Wt: 226.2# today Weight history: UBW reported 245# Physical Activity: Swimming 2-4 x per week 45 min sessions, so no change since last visit. Self-Monitoring Blood Glucose: Great difference in BG 170 vs 130 when taking Metfomrin. fastin, 120, 176 (no metformin), 140, 150. Diabetes Medications: Metformin 1000 mg BID Ozempic 0.5mg weekly Pertinent Labs: Hga1c 8.4% 02/2021 Past Medical History: (Last Reviewed 03/25/21 @ 11:15 by Rinku Alejandro MD) Abnormal LFTs Acquired hypothyroidism (08/28/10) Back pain Chronic bronchitis Colon polyps (08/28/10) Controlled diabetes mellitus type 2 with complications (11/25/14) Ductal carcinoma in situ (DCIS) of right breast Endometrial hyperplasia Essential hypertension (11/25/14) Fatigue due to sleep pattern disturbance (~04/2020) Former smoker, stopped smoking many years ago Quit 70's GERD (gastroesophageal reflux disease) (08/28/10) History of arthroplasty of right knee History of arthroscopy of both knees History of hysteroscopy w/polypectomy History of lumpectomy of right breast House dust mite allergy Hx of appendectomy Hx of eye surgery (~07/2015) Right eye muscle Hx of oophorectomy Hx of tonsillectomy Hypercalcemia Hyperlipidemia (08/28/10) Idiopathic peripheral autonomic neuropathy, unspecified (08/28/10) Lumbar stenosis Morbid obesity with body mass index (BMI) of 40.0 to 44.9 in adult (11/25/14) Nocturnal hypoxemia (~05/16/20) NSAID long-term use Obstructive sleep apnea hypopnea, moderate (~05/16/20) Ovarian cyst Peripheral edema Peripheral neuropathy Sciatica Snoring (~04/2020) Status post bilateral cataract extraction (~2014) Status post Mohs surgery KENNA (stress urinary incontinence, female) Uncontrolled diabetes mellitus Urinary tract infection UTI (urinary tract infection) Nutrition Rx: Carbohydrates: Meal: 30g Snack:15-30g Nutrition Diagnosis: Inconsistent protein intake r/t nutrition related knowledge deficit aeb diet recall and pt report Inconsistent fiber intake r/t limited veggie prep aeb pt report Intervention: This participant was very receptive. Provided appropriate educational handouts. Discussed the following topics: Blood sugar review and trends. Impact of taking medication on BG. Ways to increase veggie intake with easy prep Meal planning and food journaling Created SMART goals for patient self-care and success. 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
== END ==
PROVIDERS: PCP Family Medicine; Referring Provider Family Medicine; Visit Provider Family Medicine
DX: E11.9 Type 2 diabetes mellitus without complications (principal); R11.0 Nausea; Z79.84 Long term (current) use of oral hypoglycemic drugs; Z71.3 Dietary counseling and surveillance
CPT/HCPCS: 97803

== ENCOUNTER → 2021-07-27 09:57 | Outpatient (CLI) | payer MEDICARE, OTHER, SELFPAY ==
[2018-05-16 15:12] VITALS: BMI 42.5
[2021-07-27 11:54] LABS: BUN Creatinine Ratio 24.4 (6-22); Blood Urea Nitrogen 21 mg/dL (7-17); Calcium 9.4 mg/dL (8.4-10.2); Carbon Dioxide 29 mmol/L (22-32); Chloride 101 mmol/L (98-107); Estimated Glomerular Filt Rate > 60 mL/min (>60); Glucose 139 mg/dL (80-110); HEMOLYSIS < 15 (0-50); Potassium 3.7 mmol/L (3.4-5.1); Sodium 137 mmol/L (137-145)
[2021-07-28 07:38] LABS: Calcium 9.8 mg/dL (8.7-10.3); Parathyroid Hormone, Intact 69 pg/mL (15-65)
== END ==
PROVIDERS: PCP Family Medicine; Referring Provider Family Medicine; Visit Provider Family Medicine
DX: E11.65 Type 2 diabetes mellitus with hyperglycemia (principal); D05.11 Intraductal carcinoma in situ of right breast; E03.9 Hypothyroidism, unspecified; I10 Essential (primary) hypertension; Z63.6 Dependent relative needing care at home; E11.8 Type 2 diabetes mellitus with unspecified complications; Z79.1 Long term (current) use of non-steroidal anti-inflammatories (NSAID)
CPT/HCPCS: 36415; 80048; 82310; 83036; 83970

== ENCOUNTER → 2021-09-08 12:50 | Outpatient (CLI) | payer MEDICARE, OTHER, SELFPAY ==
[2018-05-16 15:12] VITALS: BMI 42.5
--- NOTE | 2021-09-08 14:10 | DIAB.FU ---
Follow-up Diabetes Education Assessment Name: Akanksha Ghotra Date: 09/08/21 Time: 105-150p Dx: Type II Diabetes Akanksha presents today for diabetes ed follow-up. Great improvement in HgA1c, down to 6%. She did d/c Ozempic due to nausea and cost. Cont on Metformin. Provider has switched to ER to help with GI upset. Akanksha states her pharmacy has not received the rx. Plan to call PCP office to confirm sent. States she continues on lower carb diet, about 30g per meal or less. She is wondering if she should reduce to 15g. States her main purpose in dieting was to manage BG, but she has lost a total of 34# since starting. She is very happy and would likt to lose another 20-30# before the end of the year. This is more than 1# per week. Does endorse a bit of a plateau in wt loss. Checking wt q week. Diet seems to be going well per report. May benefit from increase in physical activity. Anthropometrics: Ht: 64 Wt: 214# last mo at PCP visit Weight history: UBW reported 245# Last RD/[facility] visit: 226.2# (05/05/2021) Physical Activity: Swimming twice per week for 50 min per session. Started wearing a fitness watch, but she is unsure how to check steps/day. Self-Monitoring Blood Glucose: Checking FBG only. often in the 130s. States prior to ozempic d/c they were often in the 120s. Diabetes Medications: Metformin 1000 mg BID (not taking ER yet) Pertinent Labs: 6% HgA1c 08/2021 Past Medical History: (Last Updated 08/27/21 @ 09:14 by Ryley Chu MD) Abnormal LFTs Acquired hypothyroidism (08/28/10) Back pain Chronic bronchitis Colon polyps (08/28/10) Controlled diabetes mellitus type 2 with complications (11/25/14) Diabetic neuropathy Ductal carcinoma in situ (DCIS) of right breast Endometrial hyperplasia Essential hypertension (11/25/14) Fatigue due to sleep pattern disturbance (~04/2020) Former smoker, stopped smoking many years ago Quit 70's GERD (gastroesophageal reflux disease) (08/28/10) House dust mite allergy Hypercalcemia Hyperlipidemia (08/28/10) Idiopathic peripheral autonomic neuropathy, unspecified (08/28/10) Lumbar stenosis Morbid obesity with body mass index (BMI) of 40.0 to 44.9 in adult (11/25/14) Nocturnal hypoxemia (~05/16/20) NSAID long-term use Obstructive sleep apnea hypopnea, moderate (~05/16/20) Ovarian cyst Peripheral edema Peripheral neuropathy Sciatica Snoring (~04/2020) KENNA (stress urinary incontinence, female) Uncontrolled diabetes mellitus Urinary tract infection UTI (urinary tract infection) Intervention: This participant was very receptive. Provided appropriate educational handouts. Discussed the following topics: Recent blood sugar results and trends and impact of hormones, exercise, and medications on FBG Review of general nutrition recommendations and current intake Discussed sustainability, enjoyability, and health of moderate complex carb intake. Physical activity plan and impact on blood sugars Goals for weight loss, motivation for weight loss, aiming for a healthy weight loss Created SMART goals for patient self-care and success. 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 Blanca Kearney RDN, [facility] Certified Diabetes Care and Electronic Scale Subassembler P: [phone] Thank you for this referral
== END ==
PROVIDERS: PCP Family Medicine; Referring Provider Family Medicine; Visit Provider Family Medicine
DX: E11.9 Type 2 diabetes mellitus without complications (principal); Z71.3 Dietary counseling and surveillance; Z79.84 Long term (current) use of oral hypoglycemic drugs
CPT/HCPCS: G0108

== ENCOUNTER → 2021-11-03 12:59 | Outpatient (CLI) | payer MEDICARE, OTHER, SELFPAY ==
[2018-05-16 15:12] VITALS: BMI 42.5
--- NOTE | 2021-11-03 14:07 | DIAB.FU ---
Follow-up Diabetes Education Assessment Name: Akanksha Ghotra Date: 11/03/21 Time: 1-140p Dx: Type II Diabetes Akanksha presents for follow-up visit. States she feels she has gained wt, however after weighing in she is actually down 2 pounds.Worries about wt gain from sweets. States she has been eating more sweets recently. This is especially the case when going to meetings or volunteering, sweets are often available. Reports they are difficult to resist. Unclear how often she has them. Review of her diet, most meals are 25-45g CHO. Some meals are low in protein, especially breakfast. Anthropometrics: Ht: 64 Wt: 213.2# (-2.2# since last month per PCP weight) Weight history: UBW reported 245# 215.4# last mo at PCP visit Reports her goal is to get to <190# so that her LTC insurance will reduce the knox by $50/month. Physical Activity: increase since last visit with new puppy. Now has two dogs, one puppy and one older dog. Walks dogs 4x per day for 10-15 min. Cont swimming 2x per week. Self-Monitoring Blood Glucose: Not currently checking. Historically FBG in the 130s Diabetes Medications: Metformin 1000 mg BID (not taking ER yet) Pertinent Labs: 6% HgA1c 07/2021 Past Medical History: (Last Updated 10/08/21 @ 08:33 by Ryley Chu MD) Abnormal LFTs Acquired hypothyroidism (08/28/10) Back pain Chronic bronchitis Colon polyps (08/28/10) Controlled diabetes mellitus type 2 with complications (11/25/14) Diabetic neuropathy Dry tooth socket Ductal carcinoma in situ (DCIS) of right breast Endometrial hyperplasia Essential hypertension (11/25/14) Fatigue due to sleep pattern disturbance (~04/2020) Former smoker, stopped smoking many years ago Quit 70's GERD (gastroesophageal reflux disease) (08/28/10) House dust mite allergy Hypercalcemia Hyperlipidemia (08/28/10) Idiopathic peripheral autonomic neuropathy, unspecified (08/28/10) Lumbar stenosis Morbid obesity with body mass index (BMI) of 40.0 to 44.9 in adult (11/25/14) Nocturnal hypoxemia (~05/16/20) NSAID long-term use Obstructive sleep apnea hypopnea, moderate (~05/16/20) Ovarian cyst Peripheral edema Peripheral neuropathy Sciatica Snoring (~04/2020) KENNA (stress urinary incontinence, female) Uncontrolled diabetes mellitus Urinary tract infection UTI (urinary tract infection) Intervention: This participant was very receptive. Provided appropriate educational handouts. Discussed the following topics: Current carb intake and recs Physical activity plan and progress Strategies around sweets and impact on BG Strategies for balancing breakfast Created SMART goals for patient self-care and success. 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
== END ==
PROVIDERS: PCP Pediatrics; Referring Provider Pediatrics; Visit Provider Pediatrics
DX: E11.9 Type 2 diabetes mellitus without complications (principal); Z79.84 Long term (current) use of oral hypoglycemic drugs; Z71.3 Dietary counseling and surveillance
CPT/HCPCS: G0108

== ENCOUNTER → 2021-11-16 16:15 | Outpatient (CLI) | payer MEDICARE, OTHER, SELFPAY ==
[2018-05-16 15:12] VITALS: BMI 42.5
--- NOTE | 2021-11-16 16:16 | DI.MG.S_ITS ---
BILATERAL DIGITAL SCREENING MAMMOGRAM 3D/2D WITH CAD POST LUMPECTOMY: 11/16/2021 CLINICAL: Routine screening. Personal history of right breast cancer. Comparison is made to exams dated: 05/08/2019 mammogram, 04/17/2018 mammogram, and 12/21/2016 mammogram - [facility]. Both breasts are heterogeneously dense, which may obscure small masses (category c / 51-75% glandular tissue). Current study was also evaluated with a Computer Aided Detection (CAD) system. There are benign post operative findings in the right breast. No significant masses, calcifications, or other findings are seen in either breast. There has been no significant interval change. IMPRESSION: BENIGN There is no mammographic evidence of malignancy. A 1 year screening mammogram is recommended. This exam was interpreted at Station ID: [id number]. NOTE: For mammograms, a report in lay terms will be sent to the patient. Approximately 15% of breast malignancies will not be visualized mammographically. In the management of a palpable breast mass, a negative mammogram must not discourage biopsy of a clinically suspicious lesion. Electronically Signed By: Parvez hardin/demetrio:11/17/2021 08:07:21 letter sent: Normal Exam ACR BI-RADS Category 2: Benign Finding(s) [id number]
== END ==
PROVIDERS: PCP Pediatrics; Referring Provider Pediatrics; Visit Provider Pediatrics
DX: Z12.31 Encounter for screening mammogram for malignant neoplasm of breast (principal); Z85.3 Personal history of malignant neoplasm of breast
CPT/HCPCS: 77063; 77067

== ENCOUNTER → 2022-06-08 09:18 | Outpatient (CLI) | payer MEDICARE, OTHER, SELFPAY ==
[2018-05-16 15:12] VITALS: BMI 42.5
[2022-06-08 11:35] LABS: Alanine Aminotransferase 26 IU/L (<35); Albumin 4.1 g/dL (3.5-5.0); Albumin Globulin Ratio 1.6 (1.0-2.8); Alkaline Phosphatase 80 U/L (38-126); Aspartate Aminotransferase 28 IU/L (14-36); BUN Creatinine Ratio 23.7 (6-22); Bilirubin Total 0.8 mg/dL (0.2-1.3); Blood Urea Nitrogen 18 mg/dL (7-17); Calcium 9.4 mg/dL (8.4-10.2); Carbon Dioxide 26 mmol/L (22-32); Chloride 101 mmol/L (98-107); Cholesterol 182 mg/dL (140-199); Estimated Glomerular Filt Rate > 60 mL/min (>60); Globulin 2.5 g/dL (1.7-4.1); Glucose 113 mg/dL (80-110); HDL Cholesterol 83 mg/dL (40-60); HEMOLYSIS < 15 (0-50); LDL Cholesterol Calculated 69 mg/dL (<100); Sodium 136 mmol/L (137-145); Total Protein 6.6 g/dL (6.3-8.2); Triglycerides 149 mg/dL (35-150)
[2022-06-08 13:19] LABS: Creatinine Urine Random 76.8 mg/dL
[2022-06-08 13:36] LABS: Microalbumin Urine Random < 0.6 mg/dL (0-1.6)
[2022-06-09 05:13] LABS: Labcorp Hemoglobin (Hb) A1c 5.9 % (4.8-5.6)
[2022-06-10 13:33] LABS: Calcium 9.6; Parathyroid Hormone, Intact 53
== END ==
PROVIDERS: Family Provider Family Medicine; PCP Family Medicine; Referring Provider Family Medicine; Visit Provider Family Medicine
DX: R94.5 Abnormal results of liver function studies (principal); E11.65 Type 2 diabetes mellitus with hyperglycemia; R60.0 Localized edema; I10 Essential (primary) hypertension; E78.5 Hyperlipidemia, unspecified; E66.01 Morbid (severe) obesity due to excess calories; Z68.41 Body mass index [BMI] 40.0-44.9, adult; E11.42 Type 2 diabetes mellitus with diabetic polyneuropathy; E83.52 Hypercalcemia; E11.8 Type 2 diabetes mellitus with unspecified complications; E78.2 Mixed hyperlipidemia; E03.9 Hypothyroidism, unspecified
CPT/HCPCS: 36415; 80053; 80061; 82043; 82310; 82570; 83036; 83970

== ENCOUNTER 2022-08-09 12:00 | Outpatient (RCR) | payer MEDICARE, OTHER, SELFPAY ==
[2018-05-16 15:12] VITALS: BMI 42.5
--- NOTE | 2022-05-17 11:27 | PT.OIE ---
Current Diagnoses Spinal stenosis, lumbar region without neurogenic claudication (05/17/22) Dorsalgia, unspecified (05/17/22) Past Medical History (Last Updated 05/11/22 @ 12:32 by Carmina Sanchez DO) Abnormal LFTs Acquired hypothyroidism (08/28/10) Back pain Chronic bronchitis Colon polyps (08/28/10) Controlled diabetes mellitus type 2 with complications (11/25/14) Diabetic neuropathy Dry tooth socket Ductal carcinoma in situ (DCIS) of right breast Endometrial hyperplasia Essential hypertension (11/25/14) Fatigue due to sleep pattern disturbance (~04/2020) Former smoker, stopped smoking many years ago GERD (gastroesophageal reflux disease) (08/28/10) House dust mite allergy Hypercalcemia Hyperlipidemia (08/28/10) Idiopathic peripheral autonomic neuropathy, unspecified (08/28/10) Morbid obesity with body mass index (BMI) of 40.0 to 44.9 in adult (11/25/14) Nocturnal hypoxemia (~05/16/20) NSAID long-term use Obstructive sleep apnea hypopnea, moderate (~05/16/20) Ovarian cyst Peripheral edema Peripheral neuropathy Sciatica Snoring (~04/2020) KENNA (stress urinary incontinence, female) Uncontrolled diabetes mellitus Urinary tract infection UTI (urinary tract infection) Past Surgical History (Last Reviewed 03/25/21 @ 11:15 by Rinku Alejandro MD) History of arthroplasty of right knee History of arthroscopy of both knees History of hysteroscopy History of lumpectomy of right breast Hx of appendectomy Hx of eye surgery (~07/2015) Hx of oophorectomy Hx of tonsillectomy Status post bilateral cataract extraction (~2014) Status post Mohs surgery Status post surgery (09/17/16) Visit Care Team Role Provider Type Carmina Sanchez DO Attending Provider Physician Family Provider Primary Care Provider Referring Provider Specialty: Medical Address: [address] [place] [address], [address], [address] Email: [email or web address] Physical Therapy Initial Evaluation PT-OP-A Visit Information Start: 05/16/22 21:48 Freq: Status: Active Protocol: Document 05/17/22 09:48 AMB (Rec: 05/17/22 10:29 AMB [id number]) Out-Patient Physical Therapy Visit Information Visit Information Visit Type Initial Evaluation Visit Start Time 09:45 Visit Stop Time 10:30 Total Visit Minutes 45 Visit Number 1 PT-OP-B Current Condition Start: 05/16/22 21:48 Freq: Status: Active Protocol: Document 05/17/22 09:48 AMB (Rec: 05/17/22 10:29 AMB [id number]) Current Condition History of Current Condition Onset Date chronic Current Complaints low back pain History of Current Condition about 6 months ago. Wants to be able to walk better now that she is no longer a caregiver. Has a long history of lumbar stenosis. Doesn't feel like surgery is an option because she lives alone. Neuropathy from diabetes in bilateral feet up to mid luis. Difficulty walking, walks with a walker if more than a couple hundred feet. Does have incontinence fecal and urinary incontinence. Does walk with a small dog and the walker. 1 step to enter without railing then one with a railing to enter the house. Standing and walking is very challenging. Does have a daughter who lives in [place]. PT-OP-C Subjective Start: 05/16/22 21:48 Freq: Status: Active Protocol: Document 05/17/22 09:45 AMB (Rec: 05/17/22 16:20 AMB [id number]) OP-PT Subjective Patient Comments Patient Comments Low back pain with standing/ walking Patient Questionnaires Oswestry Low Back Index Oswestry Score 28 Oswestry Impairment 20 to 39% Impaired (Score 20- 39) PT-OP-E Functional Tests Start: 05/16/22 21:48 Freq: Status: Active Protocol: Document 05/17/22 09:45 AMB (Rec: 05/17/22 16:18 AMB [id number]) Functional Tests Five Times Sit to Stand Test Score 24 Comments with UE assist on armrests Timed Up and Go (TUG) Score 16.5 Comments no AD TUG Impairment Rating 60 to <80% Impaired (Score 16- 17) PT-OP-G Mobility & Gait Start: 05/16/22 21:48 Freq: Status: Active Protocol: Document 05/17/22 09:45 AMB (Rec: 05/17/22 16:18 AMB [id number]) OP Gait Assessment Comments Gait Comments Pt without lumbar rotation that she compensates for with severe bilateral Trendelenburg gait and hinging at the lumbar spine. PT-OP-M Strength Start: 05/16/22 21:48 Freq: Status: Active Protocol: Document 05/17/22 09:45 AMB (Rec: 05/17/22 16:18 AMB [id number]) Hip Strength Hip Manual Muscle Testing Right Flexion (L2) 4 Good Extension (S1) 3 Fair Abduction 3+ Fair+ Left Flexion (L2) 4 Good Extension (S1) 3 Fair Abduction 4- Good- Knee Strength Knee Manual Muscle Testing Right Flexion (S2) 4+ Good+ Extension (L3) 4 Good Left Flexion (S2) 4+ Good+ Extension (L3) 4 Good Ankle/Foot Strength Ankle and Foot Manual Muscle Testing Right Dorsiflexion (L4) 4 Good Plantarflexion (S1) 4- Good- Left Dorsiflexion (L4) 4 Good Plantarflexion (S1) 4- Good- PT-OP-Q Treatments Start: 05/16/22 21:48 Freq: Status: Active Protocol: Document 05/21/22 09:45 AMB (Rec: 05/23/22 11:27 AMB [id number]) Therapeutic Exercises Standing Exercises sit to stand Standing Exercise Name with theraband around knees Reps/Minutes 5 PT-OP-T Assessment and Plan Start: 05/16/22 21:48 Freq: Status: Active Protocol: Document 05/21/22 09:45 AMB (Rec: 05/23/22 11:27 AMB [id number]) Physical Therapy Assessment Goals Three Impairment HEP Short Term Goal (STG) Akanksha will be independent with a HEP for her core and LE strengthening STG Duration 5 weeks Two Impairment Pain Short Term Goal (STG) Akanksha will stand for 5 minutes without an increase in back pain. STG Duration 6 weeks [facility] Goal (LTG) Akanksha will walk her dog with her walker for 10 minutes without an increase in back pain. One Impairment Gait Short Term Goal (STG) Akanksha will improve her timed up and go time to at least 13 seconds STG Duration 6 weeks [facility] Goal (LTG) Akanksha will improve her gait so that she can walk for 6 minutes without an increase in back pain. LTG Duration 12 weeks Assessment Summary Assessment Akanksha attends physical wanting to improve her gait, standing and back pain in the context of chronic lumbar stenosis. She is limited currently to walking about a hundred feet without her walker. Her gait is poor with severe lateral trunk lean when ambulating without AD. She will benefit from strengthening her hips especially. She will benefit from physical therapy to help her manage her back pain, improve her LE and core strength, and improve her tolerance to standing and ambulation. Physical Therapy Plan Frequency and Duration Frequency of Treatment 2x/Week Duration of treatment (weeks) 12 Plan of Care Start Date 05/18/22 Plan of Care End Date 08/09/22 Therapeutic Interventions Therapeutic Interventions Balance Training,Gait Training ,Home Exercise Program,Manual Therapy,Neuromuscular Re- education,Self-Care/Home Management,Therapeutic Activities,Therapeutic Exercises Next Visit Focus/Plan Next Note Type Treatment Note Next Visit Plan Begin with hip strengthening, consider positions to reduce stenosis pain (standing increases pain quickly).
--- NOTE | 2022-05-17 11:28 | PT.OPPOC ---
Physical, Occupational & Speech Therapy At [facility] Current Diagnoses Spinal stenosis, lumbar region without neurogenic claudication (05/17/22) Dorsalgia, unspecified (05/17/22) Visit Care Team Role Provider Type Carmina Sanchez DO Attending Provider Physician Family Provider Primary Care Provider Referring Provider Specialty: Medical Address: [address] [place] [address], [address], [place], [address] Email: [email or web address] Plan Of Care PT-OP-T Assessment and Plan Start: 05/16/22 21:48 Freq: Status: Active Protocol: Document 05/21/22 09:45 AMB (Rec: 05/23/22 11:27 AMB [id number]) Physical Therapy Assessment Goals Three Impairment HEP Short Term Goal (STG) Akanksha will be independent with a HEP for her core and LE strengthening STG Duration 5 weeks Two Impairment Pain Short Term Goal (STG) Akanksha will stand for 5 minutes without an increase in back pain. STG Duration 6 weeks Nursing Home Goal (LTG) Akanksha will walk her dog with her walker for 10 minutes without an increase in back pain. One Impairment Gait Short Term Goal (STG) Akanksha will improve her timed up and go time to at least 13 seconds STG Duration 6 weeks Data Control Clerk Supervisor Goal (LTG) Akanksha will improve her gait so that she can walk for 6 minutes without an increase in back pain. LTG Duration 12 weeks Assessment Summary Assessment Akanksha attends physical wanting to improve her gait, standing and back pain in the context of chronic lumbar stenosis. She is limited currently to walking about a hundred feet without her walker. Her gait is poor with severe lateral trunk lean when ambulating without AD. She will benefit from strengthening her hips especially. She will benefit from physical therapy to help her manage her back pain, improve her LE and core strength, and improve her tolerance to standing and ambulation. Physical Therapy Plan Frequency and Duration Frequency of Treatment 2x/Week Duration of treatment (weeks) 12 Plan of Care Start Date 05/18/22 Plan of Care End Date 08/09/22 Therapeutic Interventions Therapeutic Interventions Balance Training,Gait Training ,Home Exercise Program,Manual Therapy,Neuromuscular Re- education,Self-Care/Home Management,Therapeutic Activities,Therapeutic Exercises Next Visit Focus/Plan Next Note Type Treatment Note Next Visit Plan Begin with hip strengthening, consider positions to reduce stenosis pain (standing increases pain quickly). Plan of Care Dates Plan of Care Start Date 05/18/22 Plan of Care End Date 08/09/22 Electronically Signed by: Olga Rosas, PT 05/23/22 1128 If you are in agreement with this Plan of Care, please return a signed and dated copy. I have reviewed this Plan of Care and certify that the skilled therapy services above are required to meet the patient?s needs. Physician Signature Date Printed Name and Credentials Clinical Instructor Signature Printed Name and Credentials
--- NOTE | 2022-05-31 16:56 | PT.OTN ---
Current Diagnoses Spinal stenosis, lumbar region without neurogenic claudication (05/31/22) Dorsalgia, unspecified (05/31/22) Physical Therapy Treatment Note PT-OP-A Visit Information Start: 05/16/22 21:48 Freq: Status: Active Protocol: Document 05/31/22 10:22 SW (Rec: 05/31/22 11:18 SW [id number]) Out-Patient Physical Therapy Visit Information Visit Information Visit Type Treatment Note Visit Start Time 10:33 Visit Stop Time 11:13 Total Visit Minutes 40 Visit Number 3 Number of BENCH WORKER APPRENTICE Visits 1 PT-OP-B Current Condition Start: 05/16/22 21:48 Freq: Status: Active Protocol: Document 05/17/22 09:48 AMB (Rec: 05/17/22 10:29 AMB [id number]) Current Condition History of Current Condition Onset Date chronic Current Complaints low back pain History of Current Condition about 6 months ago. Wants to be able to walk better now that she is no longer a caregiver. Has a long history of lumbar stenosis. Doesn't feel like surgery is an option because she lives alone. Neuropathy from diabetes in bilateral feet up to mid luis. Difficulty walking, walks with a walker if more than a couple hundred feet. Does have incontinence fecal and urinary incontinence. Does walk with a small dog and the walker. 1 step to enter without railing then one with a railing to enter the house. Standing and walking is very challenging. Does have a daughter who lives in [place]. PT-OP-C Subjective Start: 05/16/22 21:48 Freq: Status: Active Protocol: Document 05/31/22 10:22 (Rec: 05/31/22 11:18 SW [id number]) OP-PT Subjective Patient Comments Patient Comments Pt reports discomfort doing sit to stands with HEP. PT-OP-E Functional Tests Start: 05/16/22 21:48 Freq: Status: Active Protocol: Document 05/17/22 09:45 AMB (Rec: 05/17/22 16:18 AMB [id number]) Functional Tests Five Times Sit to Stand Test Score 24 Comments with UE assist on armrests Timed Up and Go (TUG) Score 16.5 Comments no AD TUG Impairment Rating 60 to <80% Impaired (Score 16- 17) PT-OP-G Mobility & Gait Start: 05/16/22 21:48 Freq: Status: Active Protocol: Document 05/17/22 09:45 AMB (Rec: 05/17/22 16:18 AMB [id number]) OP Gait Assessment Comments Gait Comments Pt without lumbar rotation that she compensates for with severe bilateral Trendelenburg gait and hinging at the lumbar spine. PT-OP-M Strength Start: 05/16/22 21:48 Freq: Status: Active Protocol: Document 05/17/22 09:45 AMB (Rec: 05/17/22 16:18 AMB [id number]) Hip Strength Hip Manual Muscle Testing Right Flexion (L2) 4 Good Extension (S1) 3 Fair Abduction 3+ Fair+ Left Flexion (L2) 4 Good Extension (S1) 3 Fair Abduction 4- Good- Knee Strength Knee Manual Muscle Testing Right Flexion (S2) 4+ Good+ Extension (L3) 4 Good Left Flexion (S2) 4+ Good+ Extension (L3) 4 Good Ankle/Foot Strength Ankle and Foot Manual Muscle Testing Right Dorsiflexion (L4) 4 Good Plantarflexion (S1) 4- Good- Left Dorsiflexion (L4) 4 Good Plantarflexion (S1) 4- Good- PT-OP-Q Treatments Start: 05/16/22 21:48 Freq: Status: Active Protocol: Document 05/31/22 10:22 SW (Rec: 05/31/22 11:18 SW [id number]) Therapeutic Exercises Supine Exercises Diaphragmatic breathing Supine Exercise Name Diaphragmatic breathing Reps/Minutes x 3 min lower trunk rotation Side bilateral Reps/Minutes x 10 Comments Supine Glute Supine Exercise Name Glute sets Side bilateral Reps/Minutes 2 x 10 Comments Attempted bridges, stength deficit unable at this time Marches Supine Exercise Name Core stabilization with gentle marches Reps/Minutes 2 x 10 Comments Supine TA Supine Exercise Name TA activation Reps/Minutes 10 x 5 sec Comments VC for breathwork, and gentle draw in Sitting Exercises Seated Marches Side bilateral Reps/Minutes x5 Comments VC for core stabilization Abd/add Sitting Exercise Name Hip abd/add Equipment Used Ball add/ blue TB abd Standing Exercises sit to stand Standing Exercise Name with theraband around knees Resistance blue TB Reps/Minutes 5 Comments towel placed under TB for patient comfort PT-OP-T Assessment and Plan Start: 05/16/22 21:48 Freq: Status: Active Protocol: Document 05/31/22 10:22 SW (Rec: 05/31/22 11:18 ONEL [id number]) Physical Therapy Assessment Goals Three Impairment HEP Short Term Goal (STG) Akanksha will be independent with a HEP for her core and LE strengthening STG Duration 5 weeks Two Impairment Pain Short Term Goal (STG) Akanksha will stand for 5 minutes without an increase in back pain. STG Duration 6 weeks Skilled Nursing Goal (LTG) Akanksha will walk her dog with her walker for 10 minutes without an increase in back pain. One Impairment Gait Short Term Goal (STG) Akanksha will improve her timed up and go time to at least 13 seconds STG Duration 6 weeks Paper Sample Clerk Goal (LTG) Akanksha will improve her gait so that she can walk for 6 minutes without an increase in back pain. LTG Duration 12 weeks Assessment Summary Assessment Pt reported discomfort with sit<>stand home exercise, discussed the band placement, and placing a towel under band , demonstrated exercise without discomfort. VC required for eccentric control when descending from stand to sit. Started core stabilization this session, and hip strength. Attempted supine bridges d/t pain with standing, for glute strengthening, regressed to glute sets due to strength deficits within core and hip stabilizers. Physical Therapy Plan Frequency and Duration Frequency of Treatment 2x/Week Duration of treatment (weeks) 12 Plan of Care Start Date 05/18/22 Plan of Care End Date 08/09/22 Next Visit Focus/Plan Next Note Type Treatment Note Next Visit Plan continue with hip strengthening, consider positions to reduce stenosis pain (standing increases pain quickly).
--- NOTE | 2022-06-03 16:59 | PT.OTN ---
Current Diagnoses Spinal stenosis, lumbar region without neurogenic claudication (06/03/22) Dorsalgia, unspecified (06/03/22) Physical Therapy Treatment Note PT-OP-A Visit Information Start: 05/16/22 21:48 Freq: Status: Active Protocol: Document 06/03/22 15:29 (Rec: 06/03/22 16:53 [id number]) Out-Patient Physical Therapy Visit Information Visit Information Visit Type Treatment Note Visit Start Time 03:30 Visit Stop Time 04:15 Total Visit Minutes 45 Visit Number 4 Number of SUPERVISOR STOCK RANCH Visits 2 PT-OP-B Current Condition Start: 05/16/22 21:48 Freq: Status: Active Protocol: Document 05/17/22 09:48 AMB (Rec: 05/17/22 10:29 AMB [id number]) Current Condition History of Current Condition Onset Date chronic Current Complaints low back pain History of Current Condition about 6 months ago. Wants to be able to walk better now that she is no longer a caregiver. Has a long history of lumbar stenosis. Doesn't feel like surgery is an option because she lives alone. Neuropathy from diabetes in bilateral feet up to mid luis. Difficulty walking, walks with a walker if more than a couple hundred feet. Does have incontinence fecal and urinary incontinence. Does walk with a small dog and the walker. 1 step to enter without railing then one with a railing to enter the house. Standing and walking is very challenging. Does have a daughter who lives in [place]. PT-OP-C Subjective Start: 05/16/22 21:48 Freq: Status: Active Protocol: Document 06/03/22 15:29 (Rec: 06/03/22 16:53 [id number]) OP-PT Subjective Patient Comments Patient Comments Pt reports post tx soreness. knee pain post pool exercises today, has since subsided. PT-OP-E Functional Tests Start: 05/16/22 21:48 Freq: Status: Active Protocol: Document 05/17/22 09:45 AMB (Rec: 05/17/22 16:18 AMB [id number]) Functional Tests Five Times Sit to Stand Test Score 24 Comments with UE assist on armrests Timed Up and Go (TUG) Score 16.5 Comments no AD TUG Impairment Rating 60 to <80% Impaired (Score 16- 17) PT-OP-G Mobility & Gait Start: 05/16/22 21:48 Freq: Status: Active Protocol: Document 05/17/22 09:45 AMB (Rec: 05/17/22 16:18 AMB [id number]) OP Gait Assessment Comments Gait Comments Pt without lumbar rotation that she compensates for with severe bilateral Trendelenburg gait and hinging at the lumbar spine. PT-OP-M Strength Start: 05/16/22 21:48 Freq: Status: Active Protocol: Document 05/17/22 09:45 AMB (Rec: 05/17/22 16:18 AMB [id number]) Hip Strength Hip Manual Muscle Testing Right Flexion (L2) 4 Good Extension (S1) 3 Fair Abduction 3+ Fair+ Left Flexion (L2) 4 Good Extension (S1) 3 Fair Abduction 4- Good- Knee Strength Knee Manual Muscle Testing Right Flexion (S2) 4+ Good+ Extension (L3) 4 Good Left Flexion (S2) 4+ Good+ Extension (L3) 4 Good Ankle/Foot Strength Ankle and Foot Manual Muscle Testing Right Dorsiflexion (L4) 4 Good Plantarflexion (S1) 4- Good- Left Dorsiflexion (L4) 4 Good Plantarflexion (S1) 4- Good- PT-OP-Q Treatments Start: 05/16/22 21:48 Freq: Status: Active Protocol: Document 06/03/22 15:29 SW (Rec: 06/03/22 16:53 SW [id number]) Gym Equipment Cable Column (Body Solid) hip abd Details vc for stabilization during exercise Resistance 10 Reps/Time 2x10 Therapeutic Exercises Supine Exercises TA Marches Supine Exercise Name Attempted Reps/Minutes x3 Comments dc'd d/t neural tension discomfort TA BKFO Supine Exercise Name BKFO w/ TA activation Side bilateral Reps/Minutes x10 ea lower trunk rotation Side bilateral Reps/Minutes x 10 Comments Feet together/feet hip width apart Glute Supine Exercise Name Glute sets Side bilateral Reps/Minutes 2 x 10 Comments Attempted bridges, stength deficit unable at this time Marches Supine Exercise Name Core stabilization with gentle marches Reps/Minutes 2 x 10 Comments Supine TA Supine Exercise Name TA activation Reps/Minutes 10 x 5 sec Comments VC for breathwork, and gentle draw in Standing Exercises Step taps Standing Exercise Name Step taps //bars UR COORDINATOR as needed Side bilateral Equipment Used 4 step>removed step switched to low marches d/t deficits with flexion Reps/Minutes x5 Comments circumduction to compensate for weakness sit to stand Standing Exercise Name with theraband around knees Resistance blue TB Reps/Minutes 5 Comments towel placed under TB for patient comfort PT-OP-T Assessment and Plan Start: 05/16/22 21:48 Freq: Status: Active Protocol: Document 06/03/22 15:29 SW (Rec: 06/03/22 16:53 SW [id number]) Physical Therapy Assessment Goals Three Impairment HEP Short Term Goal (STG) Akanksha will be independent with a HEP for her core and LE strengthening STG Duration 5 weeks Two Impairment Pain Short Term Goal (STG) Akanksha will stand for 5 minutes without an increase in back pain. STG Duration 6 weeks First Officer Goal (LTG) Akanksha will walk her dog with her walker for 10 minutes without an increase in back pain. One Impairment Gait Short Term Goal (STG) Akanksha will improve her timed up and go time to at least 13 seconds STG Duration 6 weeks First Officer Goal (LTG) Akanksha will improve her gait so that she can walk for 6 minutes without an increase in back pain. LTG Duration 12 weeks Assessment Summary Assessment Akanksha has been attending the pool for exercise. She reported mm soreness post last session so she took a day off from HEP, but she hopes to be able to carryout HEP since she has a week between her next appointment d/t schedule. Attempted step taps with 4 step, compensated with a circumduction, removed step and switched to a lower march that allowed for alignment without compensation. Neural discomfort felt with supine TA marches, compensations d/t core weakness, dc'd during tx. Recommend continued hip strengthening and stretches in positions that don't increase symptoms, visit manual therapy as needed next session . Physical Therapy Plan Frequency and Duration Frequency of Treatment 2x/Week Duration of treatment (weeks) 12 Plan of Care Start Date 05/18/22 Plan of Care End Date 08/09/22 Therapeutic Interventions Therapeutic Interventions Balance Training,Gait Training ,Home Exercise Program,Manual Therapy,Neuromuscular Re- education,Self-Care/Home Management,Therapeutic Activities,Therapeutic Exercises Next Visit Focus/Plan Next Note Type Treatment Note Next Visit Plan continue with hip strengthening, consider positions to reduce stenosis pain (standing increases pain quickly). Core stabilization. Discuss pool exercises.
--- NOTE | 2022-06-09 13:12 | PT.OTN ---
Current Diagnoses Spinal stenosis, lumbar region without neurogenic claudication (06/09/22) Dorsalgia, unspecified (06/09/22) Physical Therapy Treatment Note PT-OP-A Visit Information Start: 05/16/22 21:48 Freq: Status: Active Protocol: Document 06/09/22 09:52 (Rec: 06/09/22 11:00 [id number]) Out-Patient Physical Therapy Visit Information Visit Information Visit Type Treatment Note Visit Start Time 10:00 Visit Stop Time 10:45 Total Visit Minutes 45 Visit Number 5 Number of CIRCUS HAND Visits 3 PT-OP-B Current Condition Start: 05/16/22 21:48 Freq: Status: Active Protocol: Document 05/17/22 09:48 AMB (Rec: 05/17/22 10:29 AMB [id number]) Current Condition History of Current Condition Onset Date chronic Current Complaints low back pain History of Current Condition about 6 months ago. Wants to be able to walk better now that she is no longer a caregiver. Has a long history of lumbar stenosis. Doesn't feel like surgery is an option because she lives alone. Neuropathy from diabetes in bilateral feet up to mid luis. Difficulty walking, walks with a walker if more than a couple hundred feet. Does have incontinence fecal and urinary incontinence. Does walk with a small dog and the walker. 1 step to enter without railing then one with a railing to enter the house. Standing and walking is very challenging. Does have a daughter who lives in [place]. PT-OP-C Subjective Start: 05/16/22 21:48 Freq: Status: Active Protocol: Document 06/09/22 09:52 (Rec: 06/09/22 11:00 [id number]) OP-PT Subjective Patient Comments Patient Comments Pt reports that she has been working on her core HEP and it is going much better since the correction of form, she has not been able to do any more outside of that. She has been going to the pool Tue/ Thur and incorporating some glute strengthening exercises in the pool. PT-OP-E Functional Tests Start: 05/16/22 21:48 Freq: Status: Active Protocol: Document 05/17/22 09:45 AMB (Rec: 05/17/22 16:18 AMB [id number]) Functional Tests Five Times Sit to Stand Test Score 24 Comments with UE assist on armrests Timed Up and Go (TUG) Score 16.5 Comments no AD TUG Impairment Rating 60 to <80% Impaired (Score 16- 17) PT-OP-G Mobility & Gait Start: 05/16/22 21:48 Freq: Status: Active Protocol: Document 05/17/22 09:45 AMB (Rec: 05/17/22 16:18 AMB [id number]) OP Gait Assessment Comments Gait Comments Pt without lumbar rotation that she compensates for with severe bilateral Trendelenburg gait and hinging at the lumbar spine. PT-OP-M Strength Start: 05/16/22 21:48 Freq: Status: Active Protocol: Document 05/17/22 09:45 AMB (Rec: 05/17/22 16:18 AMB [id number]) Hip Strength Hip Manual Muscle Testing Right Flexion (L2) 4 Good Extension (S1) 3 Fair Abduction 3+ Fair+ Left Flexion (L2) 4 Good Extension (S1) 3 Fair Abduction 4- Good- Knee Strength Knee Manual Muscle Testing Right Flexion (S2) 4+ Good+ Extension (L3) 4 Good Left Flexion (S2) 4+ Good+ Extension (L3) 4 Good Ankle/Foot Strength Ankle and Foot Manual Muscle Testing Right Dorsiflexion (L4) 4 Good Plantarflexion (S1) 4- Good- Left Dorsiflexion (L4) 4 Good Plantarflexion (S1) 4- Good- PT-OP-Q Treatments Start: 05/16/22 21:48 Freq: Status: Active Protocol: Document 06/09/22 09:52 SW (Rec: 06/09/22 11:00 SW [id number]) Cardio Equipment Recumbent Elliptical (Biodex) Duration (Minutes) 6 Resistance 3 Seat Position 8 Gym Equipment Cable Column (Body Solid) hip abd Details vc for stabilization during exercise and not to compensate with back Resistance 10>20 Reps/Time 2x10 Shuttle Recovery BLE Resistance 37 lb (1 old>1new) Shuttle Recovery Platform Stable Reps/Time 2x10 old band 1x10 new band Therapeutic Exercises Supine Exercises Knee to chest Supine Exercise Name HEP Reps/Minutes x10 Comments Core Stabilization, with gentle stretching Pelvic Tilt Supine Exercise Name AP pelvic tilts, HEP Resistance AROM Reps/Minutes x10 Comments within pain free range Core stabilization w/therapy ball Equipment Used orange therapy ball Reps/Minutes 2x10 Comments gentle activation w/out straining cervical spine TA Marches Reps/Minutes x3 Comments vc/tactile for engagement of glutes and core stabilization, minimal lift lower trunk rotation Side bilateral Reps/Minutes x 10 Comments Feet together Marches Supine Exercise Name Core stabilization with gentle marches Reps/Minutes 2 x 10 Comments Supine Sitting Exercises Abd/add Sitting Exercise Name Seated abd, HEP Resistance Blue TB Reps/Minutes x10 Standing Exercises Marches Standing Exercise Name standing marches, HEP Side bilateral Equipment Used @ counter MUSIC PROFESSIONALS Reps/Minutes 2x5 Comments vc for small marches to maintain postural control sit to stand Reps/Minutes 2 x 10 Comments Raised mat table focused on hip hinge PT-OP-T Assessment and Plan Start: 05/16/22 21:48 Freq: Status: Active Protocol: Document 06/09/22 09:52 (Rec: 06/09/22 11:00 [id number]) Physical Therapy Assessment Goals Three Impairment HEP Short Term Goal (STG) Akanksha will be independent with a HEP for her core and LE strengthening STG Duration 5 weeks Two Impairment Pain Short Term Goal (STG) Akanksha will stand for 5 minutes without an increase in back pain. STG Duration 6 weeks Half-Way Goal (LTG) Akanksha will walk her dog with her walker for 10 minutes without an increase in back pain. One Impairment Gait Short Term Goal (STG) Akanksha will improve her timed up and go time to at least 13 seconds STG Duration 6 weeks Half-Way Goal (LTG) Akanksha will improve her gait so that she can walk for 6 minutes without an increase in back pain. LTG Duration 12 weeks Assessment Summary Assessment Reviewed HEP with Akanksha. Continued LE strength, in positions that do not increase pain (supine, sitting). Trialed shuttle recovery for ROM/LE strengthening, cueing for gluteal activation and maintaing core stabilization, good response, appropriate amount of fatigue in correct mm's. Raised mat table with sit to stands today for hip hinge, good carryover with improved sit to stand mechanics from prior session. Physical Therapy Plan Frequency and Duration Frequency of Treatment 2x/Week Duration of treatment (weeks) 12 Plan of Care Start Date 05/18/22 Plan of Care End Date 08/09/22 Therapeutic Interventions Therapeutic Interventions Balance Training,Gait Training ,Home Exercise Program,Manual Therapy,Neuromuscular Re- education,Self-Care/Home Management,Therapeutic Activities,Therapeutic Exercises Next Visit Focus/Plan Next Note Type Treatment Note Next Visit Plan continue with hip strengthening, consider positions to reduce stenosis pain (standing increases pain quickly). Core stabilization. Assess pt tolerance to strengthening exercises this session, progress/regress prn.
--- NOTE | 2022-06-16 15:46 | PT.OTN ---
Current Diagnoses Spinal stenosis, lumbar region without neurogenic claudication (06/16/22) Dorsalgia, unspecified (06/16/22) Physical Therapy Treatment Note PT-OP-A Visit Information Start: 05/16/22 21:48 Freq: Status: Active Protocol: Document 06/16/22 10:03 AMB (Rec: 06/16/22 10:47 AMB [id number]) Out-Patient Physical Therapy Visit Information Visit Information Visit Type Treatment Note Visit Start Time 10:05 Visit Stop Time 10:45 Total Visit Minutes 40 Visit Number 5 Number of AIR SAMPLING AND MONITORING Visits 0 PT-OP-B Current Condition Start: 05/16/22 21:48 Freq: Status: Active Protocol: Document 05/17/22 09:48 AMB (Rec: 05/17/22 10:29 AMB [id number]) Current Condition History of Current Condition Onset Date chronic Current Complaints low back pain History of Current Condition about 6 months ago. Wants to be able to walk better now that she is no longer a caregiver. Has a long history of lumbar stenosis. Doesn't feel like surgery is an option because she lives alone. Neuropathy from diabetes in bilateral feet up to mid luis. Difficulty walking, walks with a walker if more than a couple hundred feet. Does have incontinence fecal and urinary incontinence. Does walk with a small dog and the walker. 1 step to enter without railing then one with a railing to enter the house. Standing and walking is very challenging. Does have a daughter who lives in [place]. PT-OP-C Subjective Start: 05/16/22 21:48 Freq: Status: Active Protocol: Document 06/16/22 10:03 AMB (Rec: 06/16/22 10:47 AMB [id number]) OP-PT Subjective Patient Comments Patient Comments Pt PT-OP-E Functional Tests Start: 05/16/22 21:48 Freq: Status: Active Protocol: Document 05/17/22 09:45 AMB (Rec: 05/17/22 16:18 AMB [id number]) Functional Tests Five Times Sit to Stand Test Score 24 Comments with UE assist on armrests Timed Up and Go (TUG) Score 16.5 Comments no AD TUG Impairment Rating 60 to <80% Impaired (Score 16- 17) PT-OP-G Mobility & Gait Start: 05/16/22 21:48 Freq: Status: Active Protocol: Document 05/17/22 09:45 AMB (Rec: 05/17/22 16:18 AMB [id number]) OP Gait Assessment Comments Gait Comments Pt without lumbar rotation that she compensates for with severe bilateral Trendelenburg gait and hinging at the lumbar spine. PT-OP-M Strength Start: 05/16/22 21:48 Freq: Status: Active Protocol: Document 05/17/22 09:45 AMB (Rec: 05/17/22 16:18 AMB [id number]) Hip Strength Hip Manual Muscle Testing Right Flexion (L2) 4 Good Extension (S1) 3 Fair Abduction 3+ Fair+ Left Flexion (L2) 4 Good Extension (S1) 3 Fair Abduction 4- Good- Knee Strength Knee Manual Muscle Testing Right Flexion (S2) 4+ Good+ Extension (L3) 4 Good Left Flexion (S2) 4+ Good+ Extension (L3) 4 Good Ankle/Foot Strength Ankle and Foot Manual Muscle Testing Right Dorsiflexion (L4) 4 Good Plantarflexion (S1) 4- Good- Left Dorsiflexion (L4) 4 Good Plantarflexion (S1) 4- Good- PT-OP-Q Treatments Start: 05/16/22 21:48 Freq: Status: Active Protocol: Document 06/16/22 10:03 AMB (Rec: 06/16/22 10:47 AMB [id number]) Cardio Equipment Recumbent Elliptical (Biodex) Duration (Minutes) 6 Resistance 3 Seat Position 8 Gym Equipment Shuttle Recovery BLE Resistance 50 1 old 1 new Reps/Time 2x10 Therapeutic Exercises Supine Exercises IT band stretch Side bilateral Reps/Minutes 30x2 Pelvic Tilt Supine Exercise Name AP pelvic tilts, HEP Resistance AROM Reps/Minutes x10 Comments cue hamstrings Marches Supine Exercise Name Core stabilization with gentle marches Reps/Minutes 2 x 10 Comments Supine Standing Exercises hurdles Comments // bars Marches Standing Exercise Name standing marches, HEP Side bilateral Equipment Used @ counter METAL CLEANER Reps/Minutes 2x5 Comments vc for small marches to maintain postural control Step taps Standing Exercise Name on blue foam Reps/Minutes 2x10 Comments // bars sit to stand Reps/Minutes 2 x 10 Comments Raised mat table focused on hip hinge PT-OP-T Assessment and Plan Start: 05/16/22 21:48 Freq: Status: Active Protocol: Document 06/16/22 10:03 AMB (Rec: 06/16/22 10:47 AMB [id number]) Physical Therapy Assessment Goals Three Impairment HEP Short Term Goal (STG) Akanksha will be independent with a HEP for her core and LE strengthening STG Duration 5 weeks Two Impairment Pain Short Term Goal (STG) Akanksha will stand for 5 minutes without an increase in back pain. STG Duration 6 weeks Fpc Goal (LTG) Akanksha will walk her dog with her walker for 10 minutes without an increase in back pain. One Impairment Gait Short Term Goal (STG) Akanksha will improve her timed up and go time to at least 13 seconds STG Duration 6 weeks Fpc Goal (LTG) Akanksha will improve her gait so that she can walk for 6 minutes without an increase in back pain. LTG Duration 12 weeks Assessment Summary Assessment Akanksha is tolerating more with bridges and marching. She needs significant UE support for marching/vanna/step up activiites to prevent severe compensation. Ended with stepper. Pt felt good. Physical Therapy Plan Frequency and Duration Frequency of Treatment 2x/Week Duration of treatment (weeks) 12 Plan of Care Start Date 05/18/22 Plan of Care End Date 08/09/22 Therapeutic Interventions Therapeutic Interventions Balance Training,Gait Training ,Home Exercise Program,Manual Therapy,Neuromuscular Re- education,Self-Care/Home Management,Therapeutic Activities,Therapeutic Exercises Next Visit Focus/Plan Next Note Type Treatment Note Next Visit Plan continue with hip strengthening, consider positions to reduce stenosis pain (standing increases pain quickly). Core stabilization. Assess pt tolerance to strengthening exercises this session, progress/regress prn.
--- NOTE | 2022-06-18 21:06 | PT.OTN ---
Current Diagnoses Spinal stenosis, lumbar region without neurogenic claudication (06/18/22) Dorsalgia, unspecified (06/18/22) Physical Therapy Treatment Note PT-OP-A Visit Information Start: 05/16/22 21:48 Freq: Status: Active Protocol: Document 06/18/22 10:08 AMB (Rec: 06/18/22 10:46 AMB [id number]) Out-Patient Physical Therapy Visit Information Visit Information Visit Type Treatment Note Visit Start Time 10:00 Visit Stop Time 10:45 Total Visit Minutes 45 Visit Number 6 Number of YOGA TEACHER Visits 0 PT-OP-B Current Condition Start: 05/16/22 21:48 Freq: Status: Active Protocol: Document 05/17/22 09:48 AMB (Rec: 05/17/22 10:29 AMB [id number]) Current Condition History of Current Condition Onset Date chronic Current Complaints low back pain History of Current Condition about 6 months ago. Wants to be able to walk better now that she is no longer a caregiver. Has a long history of lumbar stenosis. Doesn't feel like surgery is an option because she lives alone. Neuropathy from diabetes in bilateral feet up to mid luis. Difficulty walking, walks with a walker if more than a couple hundred feet. Does have incontinence fecal and urinary incontinence. Does walk with a small dog and the walker. 1 step to enter without railing then one with a railing to enter the house. Standing and walking is very challenging. Does have a daughter who lives in [place]. PT-OP-C Subjective Start: 05/16/22 21:48 Freq: Status: Active Protocol: Document 06/18/22 10:08 AMB (Rec: 06/18/22 10:46 AMB [id number]) OP-PT Subjective Patient Comments Patient Comments Pt notes she is getting stronger but it is slow PT-OP-E Functional Tests Start: 05/16/22 21:48 Freq: Status: Active Protocol: Document 05/17/22 09:45 AMB (Rec: 05/17/22 16:18 AMB [id number]) Functional Tests Five Times Sit to Stand Test Score 24 Comments with UE assist on armrests Timed Up and Go (TUG) Score 16.5 Comments no AD TUG Impairment Rating 60 to <80% Impaired (Score 16- 17) PT-OP-G Mobility & Gait Start: 05/16/22 21:48 Freq: Status: Active Protocol: Document 05/17/22 09:45 AMB (Rec: 05/17/22 16:18 AMB [id number]) OP Gait Assessment Comments Gait Comments Pt without lumbar rotation that she compensates for with severe bilateral Trendelenburg gait and hinging at the lumbar spine. PT-OP-M Strength Start: 05/16/22 21:48 Freq: Status: Active Protocol: Document 05/17/22 09:45 AMB (Rec: 05/17/22 16:18 AMB [id number]) Hip Strength Hip Manual Muscle Testing Right Flexion (L2) 4 Good Extension (S1) 3 Fair Abduction 3+ Fair+ Left Flexion (L2) 4 Good Extension (S1) 3 Fair Abduction 4- Good- Knee Strength Knee Manual Muscle Testing Right Flexion (S2) 4+ Good+ Extension (L3) 4 Good Left Flexion (S2) 4+ Good+ Extension (L3) 4 Good Ankle/Foot Strength Ankle and Foot Manual Muscle Testing Right Dorsiflexion (L4) 4 Good Plantarflexion (S1) 4- Good- Left Dorsiflexion (L4) 4 Good Plantarflexion (S1) 4- Good- PT-OP-Q Treatments Start: 05/16/22 21:48 Freq: Status: Active Protocol: Document 06/18/22 10:08 AMB (Rec: 06/18/22 10:46 AMB [id number]) Cardio Equipment Recumbent Elliptical (Biodex) Duration (Minutes) 6 Resistance 3 Seat Position 8 Gym Equipment Shuttle Recovery BLE Resistance 50 1 old 1 new Reps/Time 3x10 Therapeutic Exercises Supine Exercises Pelvic Tilt Supine Exercise Name AP pelvic tilts, HEP Resistance AROM Reps/Minutes 2x10 Comments bigger range today Sidelying Exercises clam Side bilateral Resistance blue band Reps/Minutes 2x10 Standing Exercises mini squats Standing Exercise Name with UE support Reps/Minutes 10 Comments cues for hips back posture hurdles Comments // bars Marches Standing Exercise Name standing marches, HEP Side bilateral Equipment Used @ counter APPEALS REVIEWER VETERAN Reps/Minutes 2x5 Comments vc for small marches to maintain postural control PT-OP-T Assessment and Plan Start: 05/16/22 21:48 Freq: Status: Active Protocol: Document 06/18/22 10:08 AMB (Rec: 06/18/22 10:46 AMB [id number]) Physical Therapy Assessment Goals Three Impairment HEP Short Term Goal (STG) Akanksha will be independent with a HEP for her core and LE strengthening STG Duration 5 weeks Two Impairment Pain Short Term Goal (STG) Akanksha will stand for 5 minutes without an increase in back pain. STG Duration 6 weeks Penitentiary Goal (LTG) Akanksha will walk her dog with her walker for 10 minutes without an increase in back pain. One Impairment Gait Short Term Goal (STG) Akanksha will improve her timed up and go time to at least 13 seconds STG Duration 6 weeks Penitentiary Goal (LTG) Akanksha will improve her gait so that she can walk for 6 minutes without an increase in back pain. LTG Duration 12 weeks Assessment Summary Assessment Akanksha is slowly progressing as shown by improved tolerance, and increasing reps of exercises. She is very motivated but her gait to show significant compensatory strategies for her weakness, less so when she uses UE support. Physical Therapy Plan Frequency and Duration Frequency of Treatment 2x/Week Duration of treatment (weeks) 12 Plan of Care Start Date 05/18/22 Plan of Care End Date 08/09/22 Therapeutic Interventions Therapeutic Interventions Balance Training,Gait Training ,Home Exercise Program,Manual Therapy,Neuromuscular Re- education,Self-Care/Home Management,Therapeutic Activities,Therapeutic Exercises Next Visit Focus/Plan Next Note Type Treatment Note Next Visit Plan continue with hip strengthening, consider positions to reduce stenosis pain (standing increases pain quickly). Core stabilization.
--- NOTE | 2022-06-21 14:27 | PT.OTN ---
Current Diagnoses Spinal stenosis, lumbar region without neurogenic claudication (06/21/22) Dorsalgia, unspecified (06/21/22) Physical Therapy Treatment Note PT-OP-A Visit Information Start: 05/16/22 21:48 Freq: Status: Active Protocol: Document 06/21/22 09:02 AMB (Rec: 06/21/22 09:58 AMB [id number]) Out-Patient Physical Therapy Visit Information Visit Information Visit Type Treatment Note Visit Start Time 10:00 Visit Stop Time 10:45 Total Visit Minutes 45 Visit Number 7 Number of [employer] FARMING SUPERVISOR Visits 0 PT-OP-B Current Condition Start: 05/16/22 21:48 Freq: Status: Active Protocol: Document 05/17/22 09:48 AMB (Rec: 05/17/22 10:29 AMB [id number]) Current Condition History of Current Condition Onset Date chronic Current Complaints low back pain History of Current Condition about 6 months ago. Wants to be able to walk better now that she is no longer a caregiver. Has a long history of lumbar stenosis. Doesn't feel like surgery is an option because she lives alone. Neuropathy from diabetes in bilateral feet up to mid luis. Difficulty walking, walks with a walker if more than a couple hundred feet. Does have incontinence fecal and urinary incontinence. Does walk with a small dog and the walker. 1 step to enter without railing then one with a railing to enter the house. Standing and walking is very challenging. Does have a daughter who lives in [place]. PT-OP-C Subjective Start: 05/16/22 21:48 Freq: Status: Active Protocol: Document 06/21/22 09:02 AMB (Rec: 06/21/22 09:58 AMB [id number]) OP-PT Subjective Patient Comments Patient Comments Pt notes she did well after her last appt, no increased soreness. Has been busy. PT-OP-E Functional Tests Start: 05/16/22 21:48 Freq: Status: Active Protocol: Document 05/17/22 09:45 AMB (Rec: 05/17/22 16:18 AMB [id number]) Functional Tests Five Times Sit to Stand Test Score 24 Comments with UE assist on armrests Timed Up and Go (TUG) Score 16.5 Comments no AD TUG Impairment Rating 60 to <80% Impaired (Score 16- 17) PT-OP-G Mobility & Gait Start: 05/16/22 21:48 Freq: Status: Active Protocol: Document 05/17/22 09:45 AMB (Rec: 05/17/22 16:18 AMB [id number]) OP Gait Assessment Comments Gait Comments Pt without lumbar rotation that she compensates for with severe bilateral Trendelenburg gait and hinging at the lumbar spine. PT-OP-M Strength Start: 05/16/22 21:48 Freq: Status: Active Protocol: Document 05/17/22 09:45 AMB (Rec: 05/17/22 16:18 AMB [id number]) Hip Strength Hip Manual Muscle Testing Right Flexion (L2) 4 Good Extension (S1) 3 Fair Abduction 3+ Fair+ Left Flexion (L2) 4 Good Extension (S1) 3 Fair Abduction 4- Good- Knee Strength Knee Manual Muscle Testing Right Flexion (S2) 4+ Good+ Extension (L3) 4 Good Left Flexion (S2) 4+ Good+ Extension (L3) 4 Good Ankle/Foot Strength Ankle and Foot Manual Muscle Testing Right Dorsiflexion (L4) 4 Good Plantarflexion (S1) 4- Good- Left Dorsiflexion (L4) 4 Good Plantarflexion (S1) 4- Good- PT-OP-Q Treatments Start: 05/16/22 21:48 Freq: Status: Active Protocol: Document 06/21/22 09:02 AMB (Rec: 06/21/22 09:58 AMB [id number]) Cardio Equipment Recumbent Elliptical (Biodex) Duration (Minutes) 7 Resistance 4 Gym Equipment Shuttle Recovery BLE Resistance 50 1 old 1 new Reps/Time 3x10 Therapeutic Exercises Supine Exercises Pelvic Tilt Supine Exercise Name AP pelvic tilts, HEP Resistance AROM Reps/Minutes 2x10 Comments bigger range today TA Marches Reps/Minutes x3 Comments vc/tactile for engagement of glutes and core stabilization, minimal lift lower trunk rotation Side bilateral Reps/Minutes x 10 Comments Feet together TA Supine Exercise Name TA activation Reps/Minutes 10 x 5 sec Comments VC for breathwork, and gentle draw in Sidelying Exercises clam Side bilateral Resistance blue band Reps/Minutes 2x10 Standing Exercises mini squats Standing Exercise Name with UE support Reps/Minutes 10 Comments cues for hips back posture hurdles Comments railing- tends to circumduct and lean heavily sit to stand Reps/Minutes 2 x 10 Comments Raised mat table focused on hip hinge PT-OP-T Assessment and Plan Start: 05/16/22 21:48 Freq: Status: Active Protocol: Document 06/21/22 09:02 AMB (Rec: 06/21/22 09:58 AMB [id number]) Physical Therapy Assessment Goals Three Impairment HEP Short Term Goal (STG) Akanksha will be independent with a HEP for her core and LE strengthening STG Duration 5 weeks Two Impairment Pain Short Term Goal (STG) Akanksha will stand for 5 minutes without an increase in back pain. STG Duration 6 weeks Assistant Professor Of Business Goal (LTG) Akanksha will walk her dog with her walker for 10 minutes without an increase in back pain. One Impairment Gait Short Term Goal (STG) Akanksha will improve her timed up and go time to at least 13 seconds STG Duration 6 weeks Senior Care Goal (LTG) Akanksha will improve her gait so that she can walk for 6 minutes without an increase in back pain. LTG Duration 12 weeks Assessment Summary Assessment Akanksha did better today, is challenged by gait without UE support, so was thinking treadmill work would be helfpul, depends on pt's pain tolerance. Cueing ball adduction did help pt weightbear more medially through her right foot rather than just through lateral aspect. Physical Therapy Plan Frequency and Duration Frequency of Treatment 2x/Week Duration of treatment (weeks) 12 Plan of Care Start Date 05/18/22 Plan of Care End Date 08/09/22 Therapeutic Interventions Therapeutic Interventions Balance Training,Gait Training ,Home Exercise Program,Manual Therapy,Neuromuscular Re- education,Self-Care/Home Management,Therapeutic Activities,Therapeutic Exercises Next Visit Focus/Plan Next Note Type Treatment Note Next Visit Plan Pt interested in treadmill training for cuing on reducing trunk lean and circumduction and improving trunk rotation. continue with hip strengthening, consider positions to reduce stenosis pain (standing increases pain quickly). Core stabilization.
--- NOTE | 2022-06-23 09:49 | PT.OTN ---
Current Diagnoses Spinal stenosis, lumbar region without neurogenic claudication (06/23/22) Dorsalgia, unspecified (06/23/22) Physical Therapy Treatment Note PT-OP-A Visit Information Start: 05/16/22 21:48 Freq: Status: Active Protocol: Document 06/23/22 09:05 SP (Rec: 06/23/22 09:47 SP [id number]) Out-Patient Physical Therapy Visit Information Visit Information Visit Type Treatment Note Visit Start Time 09:05 Visit Stop Time 09:49 Total Visit Minutes 44 Visit Number 8 Number of SPEECH THERAPY DIRECTOR Visits 1 PT-OP-B Current Condition Start: 05/16/22 21:48 Freq: Status: Active Protocol: Document 05/17/22 09:48 AMB (Rec: 05/17/22 10:29 AMB [id number]) Current Condition History of Current Condition Onset Date chronic Current Complaints low back pain History of Current Condition about 6 months ago. Wants to be able to walk better now that she is no longer a caregiver. Has a long history of lumbar stenosis. Doesn't feel like surgery is an option because she lives alone. Neuropathy from diabetes in bilateral feet up to mid luis. Difficulty walking, walks with a walker if more than a couple hundred feet. Does have incontinence fecal and urinary incontinence. Does walk with a small dog and the walker. 1 step to enter without railing then one with a railing to enter the house. Standing and walking is very challenging. Does have a daughter who lives in [place]. PT-OP-C Subjective Start: 05/16/22 21:48 Freq: Status: Active Protocol: Document 06/23/22 09:05 SP (Rec: 06/23/22 09:47 SP [id number]) OP-PT Subjective Patient Comments Patient Comments Pt reported trying not to side bend when walking, has to use 4WW to walk the dog. Attends water exercises 2x/wk and considering fitness center 1 day week. PT-OP-E Functional Tests Start: 05/16/22 21:48 Freq: Status: Active Protocol: Document 05/17/22 09:45 AMB (Rec: 05/17/22 16:18 AMB [id number]) Functional Tests Five Times Sit to Stand Test Score 24 Comments with UE assist on armrests Timed Up and Go (TUG) Score 16.5 Comments no AD TUG Impairment Rating 60 to <80% Impaired (Score 16- 17) PT-OP-G Mobility & Gait Start: 05/16/22 21:48 Freq: Status: Active Protocol: Document 05/17/22 09:45 AMB (Rec: 05/17/22 16:18 AMB [id number]) OP Gait Assessment Comments Gait Comments Pt without lumbar rotation that she compensates for with severe bilateral Trendelenburg gait and hinging at the lumbar spine. PT-OP-M Strength Start: 05/16/22 21:48 Freq: Status: Active Protocol: Document 05/17/22 09:45 AMB (Rec: 05/17/22 16:18 AMB [id number]) Hip Strength Hip Manual Muscle Testing Right Flexion (L2) 4 Good Extension (S1) 3 Fair Abduction 3+ Fair+ Left Flexion (L2) 4 Good Extension (S1) 3 Fair Abduction 4- Good- Knee Strength Knee Manual Muscle Testing Right Flexion (S2) 4+ Good+ Extension (L3) 4 Good Left Flexion (S2) 4+ Good+ Extension (L3) 4 Good Ankle/Foot Strength Ankle and Foot Manual Muscle Testing Right Dorsiflexion (L4) 4 Good Plantarflexion (S1) 4- Good- Left Dorsiflexion (L4) 4 Good Plantarflexion (S1) 4- Good- PT-OP-Q Treatments Start: 05/16/22 21:48 Freq: Status: Active Protocol: Document 06/23/22 09:05 SP (Rec: 06/23/22 09:47 SP [id number]) Cardio Equipment Recumbent Elliptical (Biodex) Duration (Minutes) 6 Resistance 4 Seat Position in 7 Other UEs, LEs 45-50 RPMs (prefers end tx) Gym Equipment Shuttle Recovery unilateral squat Details good knee alignment heel press Resistance 25 old Reps/Time 2x10 alternating each LE BLE Resistance 50 1 old 1 new Reps/Time 3x10 Therapeutic Exercises Supine Exercises TA Supine Exercise Name TA activation SLR, ABD (abd to challenging stopped) Reps/Minutes 8 reps limited weakness hip flex/groin tension Comments VC for breathwork, and gentle draw in Sidelying Exercises clam Side bilateral Resistance AROM Reps/Minutes 2x8 reps Comments cued ab draw in and slow, shaky 8 reps. Standing Exercises hip abd Standing Exercise Name initiated in PT Reps/Minutes 5 reps before hike Comments cued elongation, core, feet // Gait Training Gait Activity trek poles Device Used B Level of Assistance S Distance/Duration 100 ft total Treatment Focus sequencing trek poles, trunk center posturing, abd / core fac incr stance Comments good sequencing, cued posturing elongation, level pelvis, pressure through trekpoles as needed (45-50% reported needed). PT-OP-T Assessment and Plan Start: 05/16/22 21:48 Freq: Status: Active Protocol: Document 06/23/22 09:05 SP (Rec: 06/23/22 09:47 SP [id number]) Physical Therapy Assessment Goals Three Impairment HEP Short Term Goal (STG) Akanksha will be independent with a HEP for her core and LE strengthening STG Duration 5 weeks Two Impairment Pain Short Term Goal (STG) Akanksha will stand for 5 minutes without an increase in back pain. STG Duration 6 weeks Cable Television Access Coordinator Goal (LTG) Akanksha will walk her dog with her walker for 10 minutes without an increase in back pain. One Impairment Gait Short Term Goal (STG) Akanksha will improve her timed up and go time to at least 13 seconds STG Duration 6 weeks Prison Goal (LTG) Akanksha will improve her gait so that she can walk for 6 minutes without an increase in back pain. LTG Duration 12 weeks Assessment Summary Assessment Pt improved posturing awareness and corrections with use mirror and reflection window f/b/side stepping and use trekpoles, cues for postural elongation. Physical Therapy Plan Frequency and Duration Frequency of Treatment 2x/Week Duration of treatment (weeks) 12 Plan of Care Start Date 05/18/22 Plan of Care End Date 08/09/22 Therapeutic Interventions Therapeutic Interventions Balance Training,Gait Training ,Home Exercise Program,Manual Therapy,Neuromuscular Re- education,Self-Care/Home Management,Therapeutic Activities,Therapeutic Exercises Next Visit Focus/Plan Next Note Type Treatment Note Next Visit Plan Continue trek pole use, hip abd stren, core fac. Pt interested in treadmill training for cuing on reducing trunk lean and circumduction and improving trunk rotation. continue with hip strengthening, consider positions to reduce stenosis pain (standing increases pain quickly). Core stabilization.
--- NOTE | 2022-06-28 09:53 | PT.OTN ---
Current Diagnoses Spinal stenosis, lumbar region without neurogenic claudication (06/28/22) Dorsalgia, unspecified (06/28/22) Physical Therapy Treatment Note PT-OP-A Visit Information Start: 05/16/22 21:48 Freq: Status: Active Protocol: Document 06/28/22 09:08 SP (Rec: 06/28/22 09:50 SP [id number]) Out-Patient Physical Therapy Visit Information Visit Information Visit Type Treatment Note Visit Note MARY Arnold provided instruction with ther ex and education sleeping spinal alignment with direction supervision and guidance by RE Hargrove. Visit Start Time 09:08 Visit Stop Time 09:53 Total Visit Minutes 46 Visit Number 9 Number of CUFF MATCHER Visits 1 PT-OP-B Current Condition Start: 05/16/22 21:48 Freq: Status: Active Protocol: Document 05/17/22 09:48 AMB (Rec: 05/17/22 10:29 AMB [id number]) Current Condition History of Current Condition Onset Date chronic Current Complaints low back pain History of Current Condition about 6 months ago. Wants to be able to walk better now that she is no longer a caregiver. Has a long history of lumbar stenosis. Doesn't feel like surgery is an option because she lives alone. Neuropathy from diabetes in bilateral feet up to mid luis. Difficulty walking, walks with a walker if more than a couple hundred feet. Does have incontinence fecal and urinary incontinence. Does walk with a small dog and the walker. 1 step to enter without railing then one with a railing to enter the house. Standing and walking is very challenging. Does have a daughter who lives in [place]. PT-OP-C Subjective Start: 05/16/22 21:48 Freq: Status: Active Protocol: Document 06/28/22 09:08 SP (Rec: 06/28/22 09:50 SP [id number]) OP-PT Subjective Patient Comments Patient Comments Pt reported upon arrival took antinflammatory before PT but hadn't taken affect with 6/10 back pain. Her lateral hips little sore after last tx but didn't last long. Worked in the yard this weekend approx 2 hrs before had to sit to continue. She states feeling improving able to tolerate standing longer. PT-OP-E Functional Tests Start: 05/16/22 21:48 Freq: Status: Active Protocol: Document 06/28/22 09:08 SP (Rec: 06/28/22 09:50 SP [id number]) Functional Tests 6 Minute Walk Test Distance 739 ft Device Used B trek poles (20-50% WB trek poles) Comments 4 min lateral trunk shift, brief 15 sec stand break Timed Up and Go (TUG) Score 16s, 15s, 14s Comments SB wt shift, cued core TUG Impairment Rating 40 to <60% Impaired (Score 14- 15) PT-OP-G Mobility & Gait Start: 05/16/22 21:48 Freq: Status: Active Protocol: Document 05/17/22 09:45 AMB (Rec: 05/17/22 16:18 AMB [id number]) OP Gait Assessment Comments Gait Comments Pt without lumbar rotation that she compensates for with severe bilateral Trendelenburg gait and hinging at the lumbar spine. PT-OP-M Strength Start: 05/16/22 21:48 Freq: Status: Active Protocol: Document 05/17/22 09:45 AMB (Rec: 05/17/22 16:18 AMB [id number]) Hip Strength Hip Manual Muscle Testing Right Flexion (L2) 4 Good Extension (S1) 3 Fair Abduction 3+ Fair+ Left Flexion (L2) 4 Good Extension (S1) 3 Fair Abduction 4- Good- Knee Strength Knee Manual Muscle Testing Right Flexion (S2) 4+ Good+ Extension (L3) 4 Good Left Flexion (S2) 4+ Good+ Extension (L3) 4 Good Ankle/Foot Strength Ankle and Foot Manual Muscle Testing Right Dorsiflexion (L4) 4 Good Plantarflexion (S1) 4- Good- Left Dorsiflexion (L4) 4 Good Plantarflexion (S1) 4- Good- PT-OP-Q Treatments Start: 05/16/22 21:48 Freq: Status: Active Protocol: Document 06/28/22 09:08 SP (Rec: 06/28/22 09:50 SP [id number]) Cardio Equipment Recumbent Elliptical (Biodex) Duration (Minutes) 6 Resistance 4 Seat Position in 7 Other UEs, LEs 45-50 RPMs (prefers end tx) Therapeutic Exercises Supine Exercises Knee to chest Supine Exercise Name HEP Reps/Minutes x10 Comments Core Stabilization, good gentle stretching Pelvic Tilt Supine Exercise Name AP pelvic tilts, HEP Resistance AROM Reps/Minutes 10 SH x10 Comments supine & standing TA Supine Exercise Name TA activation SLR Reps/Minutes 8 reps limited weakness hip flex/groin tension Comments VC for breathwork, and gentle draw in Standing Exercises side stepping Standing Exercise Name initiated inPT Side bilateral Reps/Minutes 10 ft x2 laps Comments cue back straight, more clearance R than L last pos squeek dec ecc control sit to stand Reps/Minutes x 10 Comments Raised mat table focused on hip hinge and TA back support Gait Training Gait Activity trek poles Description 6MWT Device Used B Level of Assistance S Distance/Duration 739 ft total Treatment Focus sequencing trek poles, trunk center posturing, abd / core fac incr stance Comments good sequencing, cued posturing elongation and TA, level pelvis, pressure through trekpoles as needed (20-50% reported needed). Neuro Re-Education Treatment Balance Activities TUG Comments 16s, 15s, 14s PT-OP-T Assessment and Plan Start: 05/16/22 21:48 Freq: Status: Active Protocol: Document 06/28/22 09:08 SP (Rec: 06/28/22 09:50 SP [id number]) Physical Therapy Assessment Goals Three Impairment HEP Short Term Goal (STG) Akanksah will be independent with a HEP for her core and LE strengthening 06/28/22: Pelvic tilts x5 add SLR, SKTC, Clamshell, STS, STG Duration 5 weeks Two Impairment Pain Short Term Goal (STG) Akanksha will stand for 5 minutes without an increase in back pain. 06/28/22: pt reports sometimes. Has been working in yard 2 hrs 5-10 min before needs to sit rest and work from sitting . STG Duration 6 weeks progressing 06/28/22 Nursing Home Goal (LTG) Akanksha will walk her dog with her walker for 10 minutes without an increase in back pain. One Impairment Gait Short Term Goal (STG) Akanksha will improve her timed up and go time to at least 13 seconds 06/28/22: progressins, 15, 14s. STG Duration 6 weeks progressing 06/28/22 Nursing Home Goal (LTG) Akanksha will improve her gait so that she can walk for 6 minutes without an increase in back pain. 06/28/22: progressin ft in 6 min using B Trekpoles. LTG Duration 12 weeks Progressing 06/28/22 Assessment Summary Assessment Pt improved TUG by 2.5 sec= 14 sec. Improved posturing and core fac during supported gait with less dependence on trek poles initially 20% reported, increased 50 % as reported prior tx with noted SB trunk shfit at 4 of 6MWT. Physical Therapy Plan Frequency and Duration Frequency of Treatment 2x/Week Duration of treatment (weeks) 12 Plan of Care Start Date 05/18/22 Plan of Care End Date 08/09/22 Therapeutic Interventions Therapeutic Interventions Balance Training,Gait Training ,Home Exercise Program,Manual Therapy,Neuromuscular Re- education,Self-Care/Home Management,Therapeutic Activities,Therapeutic Exercises Next Visit Focus/Plan Next Note Type Treatment Note Next Visit Plan Next tx: add TB to supine clam and bridges. Add heel slides, review TA marches. Continue trek pole use, hip abd stren, core fac. before progress toward personal goal treadmill training for cuing on reducing trunk lean and circumduction and improving trunk rotation. POC: continue with hip strengthening, consider positions to reduce stenosis pain (standing increases pain quickly). Core stabilization.
--- NOTE | 2022-06-30 14:24 | PT.OTN ---
Current Diagnoses Spinal stenosis, lumbar region without neurogenic claudication (06/30/22) Dorsalgia, unspecified (06/30/22) Physical Therapy Treatment Note PT-OP-A Visit Information Start: 05/16/22 21:48 Freq: Status: Active Protocol: Document 06/30/22 10:54 AMB (Rec: 06/30/22 11:35 AMB [id number]) Out-Patient Physical Therapy Visit Information Visit Information Visit Type Progress Note Visit Start Time 10:45 Visit Stop Time 11:30 Total Visit Minutes 45 Visit Number 10 PT-OP-B Current Condition Start: 05/16/22 21:48 Freq: Status: Active Protocol: Document 05/17/22 09:48 AMB (Rec: 05/17/22 10:29 AMB [id number]) Current Condition History of Current Condition Onset Date chronic Current Complaints low back pain History of Current Condition about 6 months ago. Wants to be able to walk better now that she is no longer a caregiver. Has a long history of lumbar stenosis. Doesn't feel like surgery is an option because she lives alone. Neuropathy from diabetes in bilateral feet up to mid luis. Difficulty walking, walks with a walker if more than a couple hundred feet. Does have incontinence fecal and urinary incontinence. Does walk with a small dog and the walker. 1 step to enter without railing then one with a railing to enter the house. Standing and walking is very challenging. Does have a daughter who lives in [place]. PT-OP-C Subjective Start: 05/16/22 21:48 Freq: Status: Active Protocol: Document 06/30/22 10:54 AMB (Rec: 06/30/22 11:35 AMB [id number]) OP-PT Subjective Patient Comments Patient Comments Pt reports she feels she is overall progressing. PT-OP-E Functional Tests Start: 05/16/22 21:48 Freq: Status: Active Protocol: Document 06/28/22 09:08 SP (Rec: 06/28/22 09:50 SP [id number]) Functional Tests 6 Minute Walk Test Distance 739 ft Device Used B trek poles (20-50% WB trek poles) Comments 4 min lateral trunk shift, brief 15 sec stand break Timed Up and Go (TUG) Score 16s, 15s, 14s Comments SB wt shift, cued core TUG Impairment Rating 40 to <60% Impaired (Score 14- 15) PT-OP-G Mobility & Gait Start: 05/16/22 21:48 Freq: Status: Active Protocol: Document 05/17/22 09:45 AMB (Rec: 05/17/22 16:18 AMB [id number]) OP Gait Assessment Comments Gait Comments Pt without lumbar rotation that she compensates for with severe bilateral Trendelenburg gait and hinging at the lumbar spine. PT-OP-M Strength Start: 05/16/22 21:48 Freq: Status: Active Protocol: Document 05/17/22 09:45 AMB (Rec: 05/17/22 16:18 AMB [id number]) Hip Strength Hip Manual Muscle Testing Right Flexion (L2) 4 Good Extension (S1) 3 Fair Abduction 3+ Fair+ Left Flexion (L2) 4 Good Extension (S1) 3 Fair Abduction 4- Good- Knee Strength Knee Manual Muscle Testing Right Flexion (S2) 4+ Good+ Extension (L3) 4 Good Left Flexion (S2) 4+ Good+ Extension (L3) 4 Good Ankle/Foot Strength Ankle and Foot Manual Muscle Testing Right Dorsiflexion (L4) 4 Good Plantarflexion (S1) 4- Good- Left Dorsiflexion (L4) 4 Good Plantarflexion (S1) 4- Good- PT-OP-Q Treatments Start: 05/16/22 21:48 Freq: Status: Active Protocol: Document 06/30/22 10:45 AMB (Rec: 06/30/22 14:13 AMB [id number]) Cardio Equipment Recumbent Elliptical (Biodex) Duration (Minutes) 6 Resistance 4 Seat Position in 7 Other UEs, LEs 45-50 RPMs (prefers end tx) Treadmill Duration (Minutes) 5 Speed 1.0 Incline 0 Other trunk lean increases after 5 min Therapeutic Exercises Supine Exercises TA Marches Reps/Minutes 2x10 Comments improved lift lower trunk rotation Supine Exercise Name on ball Side bilateral Reps/Minutes x 10 Comments Feet together Standing Exercises hip abd Standing Exercise Name initiated in PT Reps/Minutes 10 Comments challenging 1 railing mini squats Standing Exercise Name with UE support Reps/Minutes 10 Comments cues for hips back posture hurdles Comments railing- tends to circumduct and lean heavily PT-OP-T Assessment and Plan Start: 05/16/22 21:48 Freq: Status: Active Protocol: Document 06/30/22 10:54 AMB (Rec: 06/30/22 11:35 SHIRAZ [id number]) Physical Therapy Assessment Goals Three Impairment HEP Short Term Goal (STG) Akanksha will be independent with a HEP for her core and LE strengthening 06/28/22: Pelvic tilts x5 add SLR, SKTC, Clamshell, STS, STG Duration 5 weeks Two Impairment Pain Short Term Goal (STG) Akanksha will stand for 5 minutes without an increase in back pain. 06/28/22: pt reports sometimes. Has been working in yard 2 hrs 5-10 min before needs to sit rest and work from sitting . STG Duration 6 weeks progressing 06/28/22 Typewriter Aligner Goal (LTG) Akanksha will walk her dog with her walker for 10 minutes without an increase in back pain. LTG Duration MET One Impairment Gait Short Term Goal (STG) Akanksha will improve her timed up and go time to at least 13 seconds 06/28/22: progressins, 15, 14s. STG Duration 6 weeks progressing 06/28/22 [facility] Goal (LTG) Akanksha will improve her gait so that she can walk for 6 minutes without an increase in back pain. 06/28/22: progressin ft in 6 min using B Trekpoles. LTG Duration 12 weeks Progressing 06/28/22 Assessment Summary Assessment Akanksha continues to show hip abduction weakness and is unable to lift her legs against gravity into abduction bilaterally, that said she has shown good improvement with her walking speed and tolerance wiht 6MWT and TUG. She would benefit from continued therapy to work on improving her hip abduction and core strength so that she can better tolerate walking. Physical Therapy Plan Frequency and Duration Frequency of Treatment 2x/Week Duration of treatment (weeks) 12 Plan of Care Start Date 05/18/22 Plan of Care End Date 08/09/22 Therapeutic Interventions Therapeutic Interventions Balance Training,Gait Training ,Home Exercise Program,Manual Therapy,Neuromuscular Re- education,Self-Care/Home Management,Therapeutic Activities,Therapeutic Exercises Next Visit Focus/Plan Next Note Type Treatment Note Next Visit Plan Next tx: add TB to supine clam and bridges. Add heel slides, review TA marches. Continue trek pole use, hip abd stren, core fac. before progress toward personal goal treadmill training for cuing on reducing trunk lean and circumduction and improving trunk rotation. POC: continue with hip strengthening, consider positions to reduce stenosis pain (standing increases pain quickly). Core stabilization.
--- NOTE | 2022-07-07 11:18 | PT.OTN ---
Current Diagnoses Spinal stenosis, lumbar region without neurogenic claudication (07/07/22) Dorsalgia, unspecified (07/07/22) Physical Therapy Treatment Note PT-OP-A Visit Information Start: 05/16/22 21:48 Freq: Status: Active Protocol: Document 07/07/22 10:01 AMB (Rec: 07/07/22 11:15 AMB [id number]) Out-Patient Physical Therapy Visit Information Visit Information Visit Type Treatment Note Visit Start Time 10:00 Visit Stop Time 10:45 Total Visit Minutes 45 Visit Number 11 PT-OP-B Current Condition Start: 05/16/22 21:48 Freq: Status: Active Protocol: Document 05/17/22 09:48 AMB (Rec: 05/17/22 10:29 AMB [id number]) Current Condition History of Current Condition Onset Date chronic Current Complaints low back pain History of Current Condition about 6 months ago. Wants to be able to walk better now that she is no longer a caregiver. Has a long history of lumbar stenosis. Doesn't feel like surgery is an option because she lives alone. Neuropathy from diabetes in bilateral feet up to mid luis. Difficulty walking, walks with a walker if more than a couple hundred feet. Does have incontinence fecal and urinary incontinence. Does walk with a small dog and the walker. 1 step to enter without railing then one with a railing to enter the house. Standing and walking is very challenging. Does have a daughter who lives in [place]. PT-OP-C Subjective Start: 05/16/22 21:48 Freq: Status: Active Protocol: Document 07/07/22 10:01 AMB (Rec: 07/07/22 11:15 AMB [id number]) OP-PT Subjective Patient Comments Patient Comments Pt did join [employer] at the gym portion of the pool PT-OP-E Functional Tests Start: 05/16/22 21:48 Freq: Status: Active Protocol: Document 06/28/22 09:08 SP (Rec: 06/28/22 09:50 SP [id number]) Functional Tests 6 Minute Walk Test Distance 739 ft Device Used B trek poles (20-50% WB trek poles) Comments 4 min lateral trunk shift, brief 15 sec stand break Timed Up and Go (TUG) Score 16s, 15s, 14s Comments SB wt shift, cued core TUG Impairment Rating 40 to <60% Impaired (Score 14- 15) PT-OP-G Mobility & Gait Start: 05/16/22 21:48 Freq: Status: Active Protocol: Document 05/17/22 09:45 AMB (Rec: 05/17/22 16:18 AMB [id number]) OP Gait Assessment Comments Gait Comments Pt without lumbar rotation that she compensates for with severe bilateral Trendelenburg gait and hinging at the lumbar spine. PT-OP-M Strength Start: 05/16/22 21:48 Freq: Status: Active Protocol: Document 05/17/22 09:45 AMB (Rec: 05/17/22 16:18 AMB [id number]) Hip Strength Hip Manual Muscle Testing Right Flexion (L2) 4 Good Extension (S1) 3 Fair Abduction 3+ Fair+ Left Flexion (L2) 4 Good Extension (S1) 3 Fair Abduction 4- Good- Knee Strength Knee Manual Muscle Testing Right Flexion (S2) 4+ Good+ Extension (L3) 4 Good Left Flexion (S2) 4+ Good+ Extension (L3) 4 Good Ankle/Foot Strength Ankle and Foot Manual Muscle Testing Right Dorsiflexion (L4) 4 Good Plantarflexion (S1) 4- Good- Left Dorsiflexion (L4) 4 Good Plantarflexion (S1) 4- Good- PT-OP-Q Treatments Start: 05/16/22 21:48 Freq: Status: Active Protocol: Document 07/07/22 10:01 AMB (Rec: 07/07/22 11:15 AMB [id number]) Cardio Equipment Recumbent Elliptical (Biodex) Duration (Minutes) 9 Resistance 4 Seat Position in 7 Other UEs, LEs 45-50 RPMs (prefers end tx) Gym Equipment Cable Column (Body Solid) Hip Adduction Resistance 25 Reps/Time 3x10 hip abd Details vc for stabilization during exercise and not to compensate with back Resistance 35 Reps/Time 3x10 Shuttle Recovery unilateral squat Details good knee alignment heel press Resistance 25 old Reps/Time 2x10 alternating each LE BLE Resistance 50 1 old 1 new Reps/Time 3x10 Therapeutic Exercises Standing Exercises hip abd Standing Exercise Name initiated in PT Reps/Minutes 10 Comments challenging 1 railing mini squats Standing Exercise Name with UE support Reps/Minutes 10 Comments cues for hips back posture hurdles Comments railing- tends to circumduct and lean heavily Step taps Standing Exercise Name on blue foam Reps/Minutes 2x10 Comments // bars sit to stand Reps/Minutes x 10 Comments Raised mat table focused on hip hinge and TA back support PT-OP-T Assessment and Plan Start: 05/16/22 21:48 Freq: Status: Active Protocol: Document 07/07/22 10:01 AMB (Rec: 07/07/22 11:15 AMB [id number]) Physical Therapy Assessment Goals Three Impairment HEP Short Term Goal (STG) Akanksha will be independent with a HEP for her core and LE strengthening 06/28/22: Pelvic tilts x5 add SLR, SKTC, Clamshell, STS, STG Duration 5 weeks Two Impairment Pain Short Term Goal (STG) Akanksha will stand for 5 minutes without an increase in back pain. 06/28/22: pt reports sometimes. Has been working in yard 2 hrs 5-10 min before needs to sit rest and work from sitting . STG Duration 6 weeks progressing 06/28/22 Penitentiary Goal (LTG) Akanksha will walk her dog with her walker for 10 minutes without an increase in back pain. LTG Duration MET One Impairment Gait Short Term Goal (STG) Akanksha will improve her timed up and go time to at least 13 seconds 06/28/22: progressins, 15, 14s. STG Duration 6 weeks progressing 06/28/22 Penitentiary Goal (LTG) Akanksha will improve her gait so that she can walk for 6 minutes without an increase in back pain. 06/28/22: progressin ft in 6 min using B Trekpoles. LTG Duration 12 weeks Progressing 06/28/22 Assessment Summary Assessment Akanksha continues to be challenged with hip abduction, did well with the hip abductor gym exercise which she should be able to continue with at the pool gym. Tolerated mini lunges well and appropriately challenged. Physical Therapy Plan Frequency and Duration Frequency of Treatment 2x/Week Duration of treatment (weeks) 12 Plan of Care Start Date 05/18/22 Plan of Care End Date 08/09/22 Therapeutic Interventions Therapeutic Interventions Balance Training,Gait Training ,Home Exercise Program,Manual Therapy,Neuromuscular Re- education,Self-Care/Home Management,Therapeutic Activities,Therapeutic Exercises Next Visit Focus/Plan Next Note Type Treatment Note Next Visit Plan Next tx: add TB to supine clam and bridges. Add heel slides, review TA marches. Continue trek pole use, hip abd stren, core fac. before progress toward personal goal treadmill training for cuing on reducing trunk lean and circumduction and improving trunk rotation. POC: continue with hip strengthening, consider positions to reduce stenosis pain (standing increases pain quickly). Core stabilization.
--- NOTE | 2022-07-12 10:49 | PT.OTN ---
Current Diagnoses Spinal stenosis, lumbar region without neurogenic claudication (07/12/22) Dorsalgia, unspecified (07/12/22) Physical Therapy Treatment Note PT-OP-A Visit Information Start: 05/16/22 21:48 Freq: Status: Active Protocol: Document 07/12/22 10:02 SP (Rec: 07/12/22 10:48 SP [id number]) Out-Patient Physical Therapy Visit Information Visit Information Visit Type Treatment Note Visit Note MARY Arnold assisted with ther ex instruction while under direct supervision and guidence by RE Rolle. Visit Start Time 10:02 Visit Stop Time 10:51 Total Visit Minutes 49 Visit Number 12 Number of FURNACE LOADER Visits 1 PT-OP-B Current Condition Start: 05/16/22 21:48 Freq: Status: Active Protocol: Document 05/17/22 09:48 AMB (Rec: 05/17/22 10:29 AMB [id number]) Current Condition History of Current Condition Onset Date chronic Current Complaints low back pain History of Current Condition about 6 months ago. Wants to be able to walk better now that she is no longer a caregiver. Has a long history of lumbar stenosis. Doesn't feel like surgery is an option because she lives alone. Neuropathy from diabetes in bilateral feet up to mid luis. Difficulty walking, walks with a walker if more than a couple hundred feet. Does have incontinence fecal and urinary incontinence. Does walk with a small dog and the walker. 1 step to enter without railing then one with a railing to enter the house. Standing and walking is very challenging. Does have a daughter who lives in [place]. PT-OP-C Subjective Start: 05/16/22 21:48 Freq: Status: Active Protocol: Document 07/12/22 10:02 SP (Rec: 07/12/22 10:48 SP [id number]) OP-PT Subjective Patient Comments Patient Comments Pt is member of [employer] and went through orentation of machines . She feels discouraged with walking fatigued and lateral wt shifting not seeing significant improvement noticed. PT-OP-E Functional Tests Start: 05/16/22 21:48 Freq: Status: Active Protocol: Document 06/28/22 09:08 SP (Rec: 06/28/22 09:50 SP [id number]) Functional Tests 6 Minute Walk Test Distance 739 ft Device Used B trek poles (20-50% WB trek poles) Comments 4 min lateral trunk shift, brief 15 sec stand break Timed Up and Go (TUG) Score 16s, 15s, 14s Comments SB wt shift, cued core TUG Impairment Rating 40 to <60% Impaired (Score 14- 15) PT-OP-G Mobility & Gait Start: 05/16/22 21:48 Freq: Status: Active Protocol: Document 05/17/22 09:45 AMB (Rec: 05/17/22 16:18 AMB [id number]) OP Gait Assessment Comments Gait Comments Pt without lumbar rotation that she compensates for with severe bilateral Trendelenburg gait and hinging at the lumbar spine. PT-OP-M Strength Start: 05/16/22 21:48 Freq: Status: Active Protocol: Document 05/17/22 09:45 AMB (Rec: 05/17/22 16:18 AMB [id number]) Hip Strength Hip Manual Muscle Testing Right Flexion (L2) 4 Good Extension (S1) 3 Fair Abduction 3+ Fair+ Left Flexion (L2) 4 Good Extension (S1) 3 Fair Abduction 4- Good- Knee Strength Knee Manual Muscle Testing Right Flexion (S2) 4+ Good+ Extension (L3) 4 Good Left Flexion (S2) 4+ Good+ Extension (L3) 4 Good Ankle/Foot Strength Ankle and Foot Manual Muscle Testing Right Dorsiflexion (L4) 4 Good Plantarflexion (S1) 4- Good- Left Dorsiflexion (L4) 4 Good Plantarflexion (S1) 4- Good- PT-OP-Q Treatments Start: 05/16/22 21:48 Freq: Status: Active Protocol: Document 07/12/22 10:02 SP (Rec: 07/12/22 10:48 SP [id number]) Cardio Equipment Recumbent Elliptical (Biodex) Duration (Minutes) 9 Resistance 4 Seat Position in 7 Other UEs, LEs 50-55 RPMs (prefers end tx) Gym Equipment Cable Column (Body Solid) Hip Adduction Resistance 25>35>45 Reps/Time 3x10 hip abd Details vc for stabilization during exercise and not to compensate with back Resistance 35 Reps/Time 3x10 Shuttle Recovery unilateral squat Details good form Resistance 25 old>new band Reps/Time 20 reps BLE Resistance 50 (1 old + 1 new) Reps/Time x30 Therapeutic Exercises Standing Exercises hip abd Standing Exercise Name initiated in PT Reps/Minutes 10 Comments challenging 1 railing mini squats Standing Exercise Name side step mini squat Side bilateral Equipment Used with light UE support rail Reps/Minutes 10 Comments cues for hips back posture hover toilet, hurdles Standing Exercise Name step to pattern: fwd, lateral Equipment Used rail 10% 1UE Reps/Minutes 2 laps fwd, 1 lap lateral Comments improvement no circumduction noted Step taps Standing Exercise Name on blue foam Equipment Used blue foam, light rail during SLS on LLE Reps/Minutes 2x10 Comments cued taller posturing and core fac for Stance support sit to stand Equipment Used floor, blue mat Reps/Minutes 5 reps each surface Comments mesh chair- good form PT-OP-T Assessment and Plan Start: 05/16/22 21:48 Freq: Status: Active Protocol: Document 07/12/22 10:02 SP (Rec: 07/12/22 10:48 SP [id number]) Physical Therapy Assessment Goals Three Impairment HEP Short Term Goal (STG) Akanksha will be independent with a HEP for her core and LE strengthening 06/28/22: Pelvic tilts x5 add SLR, SKTC, Clamshell, STS, STG Duration 5 weeks Two Impairment Pain Short Term Goal (STG) Akanksha will stand for 5 minutes without an increase in back pain. 06/28/22: pt reports sometimes. Has been working in yard 2 hrs 5-10 min before needs to sit rest and work from sitting . STG Duration 6 weeks progressing 06/28/22 Layer Out Goal (LTG) Akanksha will walk her dog with her walker for 10 minutes without an increase in back pain. LTG Duration MET One Impairment Gait Short Term Goal (STG) Akanksha will improve her timed up and go time to at least 13 seconds 06/28/22: progressins, 15, 14s. STG Duration 6 weeks progressing 06/28/22 Layer Out Goal (LTG) Akanksha will improve her gait so that she can walk for 6 minutes without an increase in back pain. 06/28/22: progressin ft in 6 min using B Trekpoles. LTG Duration 12 weeks Progressing 06/28/22 Assessment Summary Assessment Pt improved hip hinge mini squat form with cues. Self corrections high knee vs circumduct LE today lateral hurdles step. Physical Therapy Plan Frequency and Duration Frequency of Treatment 2x/Week Duration of treatment (weeks) 12 Plan of Care Start Date 05/18/22 Plan of Care End Date 08/09/22 Therapeutic Interventions Therapeutic Interventions Balance Training,Gait Training ,Home Exercise Program,Manual Therapy,Neuromuscular Re- education,Self-Care/Home Management,Therapeutic Activities,Therapeutic Exercises Next Visit Focus/Plan Next Note Type Treatment Note Next Visit Plan Next tx: add TB to supine clam and bridges. Add heel slides, review TA marches. Continue trek pole use, hip abd stren, core fac. before progress toward personal goal treadmill training for cuing on reducing trunk lean and circumduction and improving trunk rotation. POC: continue with hip strengthening, consider positions to reduce stenosis pain (standing increases pain quickly). Core stabilization.
--- NOTE | 2022-07-14 14:45 | PT.OTN ---
Current Diagnoses Spinal stenosis, lumbar region without neurogenic claudication (07/14/22) Dorsalgia, unspecified (07/14/22) Physical Therapy Treatment Note PT-OP-A Visit Information Start: 05/16/22 21:48 Freq: Status: Active Protocol: Document 07/14/22 10:12 AMB (Rec: 07/14/22 10:48 AMB [id number]) Out-Patient Physical Therapy Visit Information Visit Information Visit Type Treatment Note Visit Start Time 10:00 Visit Stop Time 10:50 Total Visit Minutes 50 Visit Number 13 PT-OP-B Current Condition Start: 05/16/22 21:48 Freq: Status: Active Protocol: Document 05/17/22 09:48 AMB (Rec: 05/17/22 10:29 AMB [id number]) Current Condition History of Current Condition Onset Date chronic Current Complaints low back pain History of Current Condition about 6 months ago. Wants to be able to walk better now that she is no longer a caregiver. Has a long history of lumbar stenosis. Doesn't feel like surgery is an option because she lives alone. Neuropathy from diabetes in bilateral feet up to mid luis. Difficulty walking, walks with a walker if more than a couple hundred feet. Does have incontinence fecal and urinary incontinence. Does walk with a small dog and the walker. 1 step to enter without railing then one with a railing to enter the house. Standing and walking is very challenging. Does have a daughter who lives in [place]. PT-OP-C Subjective Start: 05/16/22 21:48 Freq: Status: Active Protocol: Document 07/14/22 10:12 AMB (Rec: 07/14/22 10:48 AMB [id number]) OP-PT Subjective Patient Comments Patient Comments Pt is continuing to exercise but difficult time with walking PT-OP-E Functional Tests Start: 05/16/22 21:48 Freq: Status: Active Protocol: Document 06/28/22 09:08 SP (Rec: 06/28/22 09:50 SP [id number]) Functional Tests 6 Minute Walk Test Distance 739 ft Device Used B trek poles (20-50% WB trek poles) Comments 4 min lateral trunk shift, brief 15 sec stand break Timed Up and Go (TUG) Score 16s, 15s, 14s Comments SB wt shift, cued core TUG Impairment Rating 40 to <60% Impaired (Score 14- 15) PT-OP-G Mobility & Gait Start: 05/16/22 21:48 Freq: Status: Active Protocol: Document 05/17/22 09:45 AMB (Rec: 05/17/22 16:18 AMB [id number]) OP Gait Assessment Comments Gait Comments Pt without lumbar rotation that she compensates for with severe bilateral Trendelenburg gait and hinging at the lumbar spine. PT-OP-M Strength Start: 05/16/22 21:48 Freq: Status: Active Protocol: Document 05/17/22 09:45 AMB (Rec: 05/17/22 16:18 AMB [id number]) Hip Strength Hip Manual Muscle Testing Right Flexion (L2) 4 Good Extension (S1) 3 Fair Abduction 3+ Fair+ Left Flexion (L2) 4 Good Extension (S1) 3 Fair Abduction 4- Good- Knee Strength Knee Manual Muscle Testing Right Flexion (S2) 4+ Good+ Extension (L3) 4 Good Left Flexion (S2) 4+ Good+ Extension (L3) 4 Good Ankle/Foot Strength Ankle and Foot Manual Muscle Testing Right Dorsiflexion (L4) 4 Good Plantarflexion (S1) 4- Good- Left Dorsiflexion (L4) 4 Good Plantarflexion (S1) 4- Good- PT-OP-Q Treatments Start: 05/16/22 21:48 Freq: Status: Active Protocol: Document 07/14/22 10:12 AMB (Rec: 07/14/22 10:48 AMB [id number]) Gym Equipment Cable Column (Body Solid) Hip Adduction Resistance 32.5 Reps/Time 3x10 hip abd Details vc for stabilization during exercise and not to compensate with back Resistance 332.5 Reps/Time 3x10 Shuttle Recovery unilateral squat Details good form Resistance 25 old>new band Reps/Time 20 reps BLE Resistance 50 (both new) Reps/Time x30 Shuttle Balance 1 Comments RED-- pt did not tolerate. Blue-- 5 min WBOS increased back pain but pt was able to use ankles to manage. Therapeutic Exercises Standing Exercises mini squats Standing Exercise Name side step mini squat Side bilateral Equipment Used with light UE support rail Reps/Minutes 10 Comments cues for hips back posture hover toilet, Step taps Standing Exercise Name on blue foam Equipment Used blue foam, light rail during SLS on LLE Reps/Minutes 2x10 Comments cued taller posturing and core fac for Stance support sit to stand Equipment Used floor, blue mat Reps/Minutes 5 reps each surface Comments mesh chair- good form PT-OP-T Assessment and Plan Start: 05/16/22 21:48 Freq: Status: Active Protocol: Document 07/14/22 10:12 AMB (Rec: 07/14/22 10:48 AMB [id number]) Physical Therapy Assessment Goals Three Impairment HEP Short Term Goal (STG) Akanksha will be independent with a HEP for her core and LE strengthening 06/28/22: Pelvic tilts x5 add SLR, SKTC, Clamshell, STS, STG Duration 5 weeks Two Impairment Pain Short Term Goal (STG) Akanksha will stand for 5 minutes without an increase in back pain. 06/28/22: pt reports sometimes. Has been working in yard 2 hrs 5-10 min before needs to sit rest and work from sitting . STG Duration 6 weeks progressing 06/28/22 Research Chemical Engineer Goal (LTG) Akanksha will walk her dog with her walker for 10 minutes without an increase in back pain. LTG Duration MET One Impairment Gait Short Term Goal (STG) Akanksha will improve her timed up and go time to at least 13 seconds 06/28/22: progressins, 15, 14s. STG Duration 6 weeks progressing 06/28/22 Research Chemical Engineer Goal (LTG) Akanksha will improve her gait so that she can walk for 6 minutes without an increase in back pain. 06/28/22: progressin ft in 6 min using B Trekpoles. LTG Duration 12 weeks Progressing 06/28/22 Assessment Summary Assessment Did encourage pt to use trekking poles when walking as that should help with her walking. Pt's goal is of course to walk more without AD . Encouraged pt to continue with hip strengthenging, but that PT would encourage walking without antalgia with an AD to give body the motor pattern of walking without a limp might be helpful. Physical Therapy Plan Frequency and Duration Frequency of Treatment 2x/Week Duration of treatment (weeks) 12 Plan of Care Start Date 05/18/22 Plan of Care End Date 08/09/22 Therapeutic Interventions Therapeutic Interventions Balance Training,Gait Training ,Home Exercise Program,Manual Therapy,Neuromuscular Re- education,Self-Care/Home Management,Therapeutic Activities,Therapeutic Exercises Next Visit Focus/Plan Next Note Type Treatment Note Next Visit Plan Next tx: add TB to supine clam and bridges. Add heel slides, review TA marches. Continue trek pole use, hip abd stren, core fac. before progress toward personal goal treadmill training for cuing on reducing trunk lean and circumduction and improving trunk rotation. POC: continue with hip strengthening, consider positions to reduce stenosis pain (standing increases pain quickly). Core stabilization.
--- NOTE | 2022-07-19 10:55 | PT.OTN ---
Current Diagnoses Spinal stenosis, lumbar region without neurogenic claudication (07/19/22) Dorsalgia, unspecified (07/19/22) Physical Therapy Treatment Note PT-OP-A Visit Information Start: 05/16/22 21:48 Freq: Status: Active Protocol: Document 07/19/22 10:02 SP (Rec: 07/19/22 10:48 SP [id number]) Out-Patient Physical Therapy Visit Information Visit Information Visit Type Treatment Note Visit Start Time 10:02 Visit Stop Time 10:55 Total Visit Minutes 53 Visit Number 14 Number of WELDING MACHINE OPERATOR FRICTION Visits 1 PT-OP-B Current Condition Start: 05/16/22 21:48 Freq: Status: Active Protocol: Document 05/17/22 09:48 AMB (Rec: 05/17/22 10:29 AMB [id number]) Current Condition History of Current Condition Onset Date chronic Current Complaints low back pain History of Current Condition about 6 months ago. Wants to be able to walk better now that she is no longer a caregiver. Has a long history of lumbar stenosis. Doesn't feel like surgery is an option because she lives alone. Neuropathy from diabetes in bilateral feet up to mid luis. Difficulty walking, walks with a walker if more than a couple hundred feet. Does have incontinence fecal and urinary incontinence. Does walk with a small dog and the walker. 1 step to enter without railing then one with a railing to enter the house. Standing and walking is very challenging. Does have a daughter who lives in [place]. PT-OP-C Subjective Start: 05/16/22 21:48 Freq: Status: Active Protocol: Document 07/19/22 10:02 SP (Rec: 07/19/22 10:48 SP [id number]) OP-PT Subjective Patient Comments Patient Comments Pt reports PT-OP-E Functional Tests Start: 05/16/22 21:48 Freq: Status: Active Protocol: Document 06/28/22 09:08 SP (Rec: 06/28/22 09:50 SP [id number]) Functional Tests 6 Minute Walk Test Distance 739 ft Device Used B trek poles (20-50% WB trek poles) Comments 4 min lateral trunk shift, brief 15 sec stand break Timed Up and Go (TUG) Score 16s, 15s, 14s Comments SB wt shift, cued core TUG Impairment Rating 40 to <60% Impaired (Score 14- 15) PT-OP-G Mobility & Gait Start: 05/16/22 21:48 Freq: Status: Active Protocol: Document 05/17/22 09:45 AMB (Rec: 05/17/22 16:18 AMB [id number]) OP Gait Assessment Comments Gait Comments Pt without lumbar rotation that she compensates for with severe bilateral Trendelenburg gait and hinging at the lumbar spine. PT-OP-M Strength Start: 05/16/22 21:48 Freq: Status: Active Protocol: Document 05/17/22 09:45 AMB (Rec: 05/17/22 16:18 AMB [id number]) Hip Strength Hip Manual Muscle Testing Right Flexion (L2) 4 Good Extension (S1) 3 Fair Abduction 3+ Fair+ Left Flexion (L2) 4 Good Extension (S1) 3 Fair Abduction 4- Good- Knee Strength Knee Manual Muscle Testing Right Flexion (S2) 4+ Good+ Extension (L3) 4 Good Left Flexion (S2) 4+ Good+ Extension (L3) 4 Good Ankle/Foot Strength Ankle and Foot Manual Muscle Testing Right Dorsiflexion (L4) 4 Good Plantarflexion (S1) 4- Good- Left Dorsiflexion (L4) 4 Good Plantarflexion (S1) 4- Good- PT-OP-Q Treatments Start: 05/16/22 21:48 Freq: Status: Active Protocol: Document 07/19/22 10:02 SP (Rec: 07/19/22 10:48 SP [id number]) Cardio Equipment Recumbent Elliptical (Biodex) Duration (Minutes) 10 Resistance 4 Seat Position in 7 Other UEs, LEs 50-55 RPMs (prefers end tx) Gym Equipment Shuttle Recovery unilateral squat Details good form Resistance 25 new band> 37# (1 new band) Reps/Time 20 reps, 15 reps each LE (more challenge L) BLE Resistance 50 (both new) Reps/Time x30 Shuttle Balance 1 Details WBOS, NBOS, stagger Reps/Duration 8 min Comments WBOS: HTs, EC 20 sec NBOS: HTs, EC 10 sec Stagger stance: stationary balance and HTs *Cues for elongated posture, core/scap complex fac and CORNELIUS full foot equad BLE more wt shift into front ft in stagger stance imrproved stability. Therapeutic Exercises Sitting Exercises HS stretch Sitting Exercise Name initiated in PT Side bilateral Reps/Minutes 60 Comments good stretch post shuttle balance Abd/add Sitting Exercise Name Seated abd, HEP Resistance Blue TB below knees Reps/Minutes x20 Comments cued keep feet //, flat floor Standing Exercises ITB stretch Standing Exercise Name initiated inPT (land application) Side bilateral Equipment Used rail support Reps/Minutes 30 Comments good feedback stretch hip abd Standing Exercise Name reviewed HEP Side bilateral Resistance AROM light 1 HR, TB #2 30% BUE support Reps/Minutes 10 Comments good postural corrections and core engaged, dec SB PT-OP-T Assessment and Plan Start: 05/16/22 21:48 Freq: Status: Active Protocol: Document 07/19/22 10:02 SP (Rec: 07/19/22 10:48 SP [id number]) Physical Therapy Assessment Goals Three Impairment HEP Short Term Goal (STG) Akanksha will be independent with a HEP for her core and LE strengthening 06/28/22: Pelvic tilts x5 add SLR, SKTC, Clamshell, STS, STG Duration 5 weeks Two Impairment Pain Short Term Goal (STG) Akanksha will stand for 5 minutes without an increase in back pain. 06/28/22: pt reports sometimes. Has been working in yard 2 hrs 5-10 min before needs to sit rest and work from sitting . STG Duration 6 weeks progressing 06/28/22 Nursing Home Goal (LTG) Akanksha will walk her dog with her walker for 10 minutes without an increase in back pain. LTG Duration MET One Impairment Gait Short Term Goal (STG) Akanksha will improve her timed up and go time to at least 13 seconds 06/28/22: progressins, 15, 14s. STG Duration 6 weeks progressing 06/28/22 Nursing Home Goal (LTG) Akanksha will improve her gait so that she can walk for 6 minutes without an increase in back pain. 06/28/22: progressin ft in 6 min using B Trekpoles. LTG Duration 12 weeks Progressing 06/28/22 Assessment Summary Assessment Pt responded well to increased resistance for progressing LE strengthening on shuttle recovery. She able to increase challenge shuttle balance with head turns/EC, reports hip abd facilitation and demonstrates balance recovery with cues for postural/ positioning corrections. Physical Therapy Plan Frequency and Duration Frequency of Treatment 2x/Week Duration of treatment (weeks) 12 Plan of Care Start Date 05/18/22 Plan of Care End Date 08/09/22 Therapeutic Interventions Therapeutic Interventions Balance Training,Gait Training ,Home Exercise Program,Manual Therapy,Neuromuscular Re- education,Self-Care/Home Management,Therapeutic Activities,Therapeutic Exercises Next Visit Focus/Plan Next Note Type Treatment Note Next Visit Plan Next tx: add TB to supine clam and bridges. Add heel slides, review TA marches. Continue trek pole use, hip abd stren, core fac. before progress toward personal goal treadmill training for cuing on reducing trunk lean and circumduction and improving trunk rotation. POC: continue with hip strengthening, consider positions to reduce stenosis pain (standing increases pain quickly). Core stabilization.
--- NOTE | 2022-07-26 11:40 | PT.OTN ---
Current Diagnoses Spinal stenosis, lumbar region without neurogenic claudication (07/28/22) Dorsalgia, unspecified (07/28/22) Physical Therapy Treatment Note PT-OP-A Visit Information Start: 05/16/22 21:48 Freq: Status: Active Protocol: Document 07/28/22 18:19 SP (Rec: 07/26/22 11:34 SP [id number]) Out-Patient Physical Therapy Visit Information Visit Information Visit Type Treatment Note Visit Start Time 10:51 Visit Stop Time 11:40 Total Visit Minutes 49 Visit Number 15 Number of TESTING DIRECTOR Visits 2 PT-OP-B Current Condition Start: 05/16/22 21:48 Freq: Status: Active Protocol: Document 05/17/22 09:48 AMB (Rec: 05/17/22 10:29 AMB [id number]) Current Condition History of Current Condition Onset Date chronic Current Complaints low back pain History of Current Condition about 6 months ago. Wants to be able to walk better now that she is no longer a caregiver. Has a long history of lumbar stenosis. Doesn't feel like surgery is an option because she lives alone. Neuropathy from diabetes in bilateral feet up to mid luis. Difficulty walking, walks with a walker if more than a couple hundred feet. Does have incontinence fecal and urinary incontinence. Does walk with a small dog and the walker. 1 step to enter without railing then one with a railing to enter the house. Standing and walking is very challenging. Does have a daughter who lives in [place]. PT-OP-C Subjective Start: 05/16/22 21:48 Freq: Status: Active Protocol: Document 07/28/22 18:19 SP (Rec: 07/26/22 11:34 SP [id number]) OP-PT Subjective Patient Comments Patient Comments Pt reports back hurting, did a craft show over weekend and pride parade. PT-OP-E Functional Tests Start: 05/16/22 21:48 Freq: Status: Active Protocol: Document 06/28/22 09:08 SP (Rec: 06/28/22 09:50 SP [id number]) Functional Tests 6 Minute Walk Test Distance 739 ft Device Used B trek poles (20-50% WB trek poles) Comments 4 min lateral trunk shift, brief 15 sec stand break Timed Up and Go (TUG) Score 16s, 15s, 14s Comments SB wt shift, cued core TUG Impairment Rating 40 to <60% Impaired (Score 14- 15) PT-OP-G Mobility & Gait Start: 05/16/22 21:48 Freq: Status: Active Protocol: Document 05/17/22 09:45 AMB (Rec: 05/17/22 16:18 AMB [id number]) OP Gait Assessment Comments Gait Comments Pt without lumbar rotation that she compensates for with severe bilateral Trendelenburg gait and hinging at the lumbar spine. PT-OP-M Strength Start: 05/16/22 21:48 Freq: Status: Active Protocol: Document 05/17/22 09:45 AMB (Rec: 05/17/22 16:18 AMB [id number]) Hip Strength Hip Manual Muscle Testing Right Flexion (L2) 4 Good Extension (S1) 3 Fair Abduction 3+ Fair+ Left Flexion (L2) 4 Good Extension (S1) 3 Fair Abduction 4- Good- Knee Strength Knee Manual Muscle Testing Right Flexion (S2) 4+ Good+ Extension (L3) 4 Good Left Flexion (S2) 4+ Good+ Extension (L3) 4 Good Ankle/Foot Strength Ankle and Foot Manual Muscle Testing Right Dorsiflexion (L4) 4 Good Plantarflexion (S1) 4- Good- Left Dorsiflexion (L4) 4 Good Plantarflexion (S1) 4- Good- PT-OP-Q Treatments Start: 05/16/22 21:48 Freq: Status: Active Protocol: Document 07/28/22 18:19 SP (Rec: 07/26/22 11:34 SP [id number]) Cardio Equipment Recumbent Elliptical (BiodViralheat) Duration (Minutes) 10 Resistance 4 Seat Position in 7 (see 6) Other UEs, LEs 50-55 RPMs (prefers end tx) Therapeutic Exercises Supine Exercises piriformis stretch Supine Exercise Name added to HEP post manual LB Side bilateral Reps/Minutes 30 x2 Comments good feedback stretch post hip and LB response IT band stretch Side bilateral Reps/Minutes 30x2 Knee to chest Supine Exercise Name HEP Equipment Used UE support behind thighs Reps/Minutes 30 x2 Comments Core Stabilization, good gentle stretching Sidelying Exercises clam Side bilateral Resistance AROM> TB #1 peach (at thighs) Reps/Minutes x10 each side Comments cued ab draw in and slow. Standing Exercises step ups Standing Exercise Name repeated added to HEP Side bilateral Equipment Used HR Reps/Minutes x10 reps each side Comments cued elongated posture and opp UE support- improved glut fac side stepping Standing Exercise Name initiated in PT Side bilateral Resistance AROM Reps/Minutes 10 ft x2 laps Comments cue back straight, more clearance R than L last pos squeek dec ecc control hip abd Standing Exercise Name reviewed HEP Side bilateral Resistance AROM light 1 HR Reps/Minutes 10 Comments good postural corrections and core engaged, dec SB mini squats Standing Exercise Name side step mini squat Side bilateral Equipment Used with light UE support rail Reps/Minutes 10 Comments cues for hips back posture hover toilet, Manual Therapy Treatment Soft Tissue Mobilization B hip/ LB Body Location B ES, superior glut med & Max Mobilization Type Strumming,Sustained Pressure Intensity/Depth Moderate Body Position Prone over pillow Comments manual and ed self application ball wall. PT-OP-T Assessment and Plan Start: 05/16/22 21:48 Freq: Status: Active Protocol: Document 07/28/22 18:19 SP (Rec: 07/26/22 11:34 SP [id number]) Physical Therapy Assessment Goals Three Impairment HEP Short Term Goal (STG) Akanksha will be independent with a HEP for her core and LE strengthening 06/28/22: Pelvic tilts x5 add SLR, SKTC, Clamshell, STS, STG Duration 5 weeks Two Impairment Pain Short Term Goal (STG) Akanksha will stand for 5 minutes without an increase in back pain. 06/28/22: pt reports sometimes. Has been working in yard 2 hrs 5-10 min before needs to sit rest and work from sitting . STG Duration 6 weeks progressing 06/28/22 Care Home Goal (LTG) Akanksha will walk her dog with her walker for 10 minutes without an increase in back pain. LTG Duration MET One Impairment Gait Short Term Goal (STG) Akanksha will improve her timed up and go time to at least 13 seconds 06/28/22: progressins, 15, 14s. STG Duration 6 weeks progressing 06/28/22 Procurement Inspector Goal (LTG) Akanksha will improve her gait so that she can walk for 6 minutes without an increase in back pain. 06/28/22: progressin ft in 6 min using B Trekpoles. LTG Duration 12 weeks Progressing 06/28/22 Assessment Summary Assessment Pt reports decreased LBP and increased mobility post manual and stretching with ability to perform upright ther ex with cuing for postural elongation w/only 1 UE support . Pt able to tolerate increased resistance during clamshell this tx, provided theraband for self application carryover home. Physical Therapy Plan Frequency and Duration Frequency of Treatment 2x/Week Duration of treatment (weeks) 12 Plan of Care Start Date 05/18/22 Plan of Care End Date 08/09/22 Therapeutic Interventions Therapeutic Interventions Balance Training,Gait Training ,Home Exercise Program,Manual Therapy,Neuromuscular Re- education,Self-Care/Home Management,Therapeutic Activities,Therapeutic Exercises Next Visit Focus/Plan Next Note Type Treatment Note Next Visit Plan PN/ update POC in 3 tx. Recheck added TB clam, step up . Possible add TA heel slide & april for core strengthening. POC: Continue trek pole use, hip abd stren, core fac. before progress toward personal goal treadmill training for cuing on reducing trunk lean and circumduction and improving trunk rotation. POC: continue with hip strengthening, consider positions to reduce stenosis pain (standing increases pain quickly). Core stabilization.
--- NOTE | 2022-07-28 11:35 | PT.OTN ---
Current Diagnoses Spinal stenosis, lumbar region without neurogenic claudication (07/28/22) Dorsalgia, unspecified (07/28/22) Physical Therapy Treatment Note PT-OP-A Visit Information Start: 05/16/22 21:48 Freq: Status: Active Protocol: Document 07/28/22 10:48 SP (Rec: 07/28/22 11:35 SP [id number]) Out-Patient Physical Therapy Visit Information Visit Information Visit Type Treatment Note Visit Start Time 10:48 Visit Stop Time 11:38 Total Visit Minutes 50 Visit Number 16 Number of HYDROCHLORIC MANUFACTURING SUPERVISOR Visits 3 PT-OP-B Current Condition Start: 05/16/22 21:48 Freq: Status: Active Protocol: Document 05/17/22 09:48 AMB (Rec: 05/17/22 10:29 AMB [id number]) Current Condition History of Current Condition Onset Date chronic Current Complaints low back pain History of Current Condition about 6 months ago. Wants to be able to walk better now that she is no longer a caregiver. Has a long history of lumbar stenosis. Doesn't feel like surgery is an option because she lives alone. Neuropathy from diabetes in bilateral feet up to mid luis. Difficulty walking, walks with a walker if more than a couple hundred feet. Does have incontinence fecal and urinary incontinence. Does walk with a small dog and the walker. 1 step to enter without railing then one with a railing to enter the house. Standing and walking is very challenging. Does have a daughter who lives in [place]. PT-OP-C Subjective Start: 05/16/22 21:48 Freq: Status: Active Protocol: Document 07/28/22 10:48 SP (Rec: 07/28/22 11:35 SP [id number]) OP-PT Subjective Patient Comments Patient Comments Pt reports the manual assist with last tx helped alot. PT-OP-E Functional Tests Start: 05/16/22 21:48 Freq: Status: Active Protocol: Document 06/28/22 09:08 SP (Rec: 06/28/22 09:50 SP [id number]) Functional Tests 6 Minute Walk Test Distance 739 ft Device Used B trek poles (20-50% WB trek poles) Comments 4 min lateral trunk shift, brief 15 sec stand break Timed Up and Go (TUG) Score 16s, 15s, 14s Comments SB wt shift, cued core TUG Impairment Rating 40 to <60% Impaired (Score 14- 15) PT-OP-G Mobility & Gait Start: 05/16/22 21:48 Freq: Status: Active Protocol: Document 05/17/22 09:45 AMB (Rec: 05/17/22 16:18 AMB [id number]) OP Gait Assessment Comments Gait Comments Pt without lumbar rotation that she compensates for with severe bilateral Trendelenburg gait and hinging at the lumbar spine. PT-OP-M Strength Start: 05/16/22 21:48 Freq: Status: Active Protocol: Document 05/17/22 09:45 AMB (Rec: 05/17/22 16:18 AMB [id number]) Hip Strength Hip Manual Muscle Testing Right Flexion (L2) 4 Good Extension (S1) 3 Fair Abduction 3+ Fair+ Left Flexion (L2) 4 Good Extension (S1) 3 Fair Abduction 4- Good- Knee Strength Knee Manual Muscle Testing Right Flexion (S2) 4+ Good+ Extension (L3) 4 Good Left Flexion (S2) 4+ Good+ Extension (L3) 4 Good Ankle/Foot Strength Ankle and Foot Manual Muscle Testing Right Dorsiflexion (L4) 4 Good Plantarflexion (S1) 4- Good- Left Dorsiflexion (L4) 4 Good Plantarflexion (S1) 4- Good- PT-OP-Q Treatments Start: 05/16/22 21:48 Freq: Status: Active Protocol: Document 07/28/22 10:48 SP (Rec: 07/28/22 11:35 SP [id number]) Cardio Equipment Recumbent Elliptical (Biodex) Duration (Minutes) 10 Resistance 4 Seat Position in 7 (see 6) Other UEs, LEs 50-55 RPMs (end tx) Gym Equipment Shuttle Recovery unilateral squat Details good knee alignment lateral hip abd fac Resistance 37# (1 new band) Reps/Time 30 reps each BLE Resistance 50 (both new) Reps/Time x30 Shuttle Balance 1 Details WBOS, NBOS, stagger Reps/Duration 10 min- Red Comments WBOS: HTs, EC 20 sec NBOS: HTs, EC 10 sec Stagger stance: stationary balance and HTs *Cues for elongated posture, core/scap complex fac and CORNELIUS full foot equad BLE more wt shift into front ft in stagger stance imrproved stability. CG-10%A as needed Therapeutic Exercises Sitting Exercises LS stretch Sitting Exercise Name initiated in PT Side bilateral Reps/Minutes 2 min total Comments trunk flexion fwd, Lat for QL- good repsonse HS stretch Sitting Exercise Name reviewed PT Side bilateral Equipment Used Med/lat/straight Reps/Minutes 60 Comments good stretch post shuttle balance Standing Exercises mini squats Standing Exercise Name side step mini squat Side bilateral Equipment Used with light UE support rail Reps/Minutes 10 Comments cues for hips back posture hover toilet, hurdles Standing Exercise Name step to lateral, receiprocal fwd Equipment Used rail 10>30% opp UE (1) Reps/Minutes 2 laps each direction Comments good knee/hip flexion, cued TA elongation posturing for SLS advance opp LE PT-OP-T Assessment and Plan Start: 05/16/22 21:48 Freq: Status: Active Protocol: Document 07/28/22 10:48 SP (Rec: 07/28/22 11:35 SP [id number]) Physical Therapy Assessment Goals Three Impairment HEP Short Term Goal (STG) Akanksha will be independent with a HEP for her core and LE strengthening 06/28/22: Pelvic tilts x5 add SLR, SKTC, Clamshell, STS, STG Duration 5 weeks Two Impairment Pain Short Term Goal (STG) Akanksha will stand for 5 minutes without an increase in back pain. 06/28/22: pt reports sometimes. Has been working in yard 2 hrs 5-10 min before needs to sit rest and work from sitting . STG Duration 6 weeks progressing 06/28/22 Snf Goal (LTG) Akanksha will walk her dog with her walker for 10 minutes without an increase in back pain. LTG Duration MET One Impairment Gait Short Term Goal (STG) Akanksha will improve her timed up and go time to at least 13 seconds 06/28/22: progressins, 15, 14s. STG Duration 6 weeks progressing 06/28/22 Snf Goal (LTG) Akanksha will improve her gait so that she can walk for 6 minutes without an increase in back pain. 06/28/22: progressin ft in 6 min using B Trekpoles. LTG Duration 12 weeks Progressing 06/28/22 Assessment Summary Assessment Pt improved receiprocal stepping hurdles no circumduction but last activity so increase 1 UE support. Improved stability shuttle balance red chains today with HTs and little EC NBOS, WBOS. CG- 10%A as needed . Improves decrease SB with cue reminder for elongation and TA fac. Physical Therapy Plan Frequency and Duration Frequency of Treatment 2x/Week Duration of treatment (weeks) 12 Plan of Care Start Date 05/18/22 Plan of Care End Date 08/09/22 Therapeutic Interventions Therapeutic Interventions Balance Training,Gait Training ,Home Exercise Program,Manual Therapy,Neuromuscular Re- education,Self-Care/Home Management,Therapeutic Activities,Therapeutic Exercises Next Visit Focus/Plan Next Note Type Treatment Note Next Visit Plan recheck added TB clam, step up . Add TA heel slide & april. POC: Continue trek pole use, hip abd stren, core fac. before progress toward personal goal treadmill training for cuing on reducing trunk lean and circumduction and improving trunk rotation. POC: continue with hip strengthening, consider positions to reduce stenosis pain (standing increases pain quickly). Core stabilization.
--- NOTE | 2022-08-02 15:48 | PT.OTN ---
Current Diagnoses Spinal stenosis, lumbar region without neurogenic claudication (08/02/22) Dorsalgia, unspecified (08/02/22) Physical Therapy Treatment Note PT-OP-A Visit Information Start: 05/16/22 21:48 Freq: Status: Active Protocol: Document 08/02/22 13:31 AMB (Rec: 08/02/22 14:32 AMB [id number]) Out-Patient Physical Therapy Visit Information Visit Information Visit Type Treatment Note Visit Start Time 10:48 Visit Stop Time 11:38 Total Visit Minutes 50 Visit Number 17 PT-OP-B Current Condition Start: 05/16/22 21:48 Freq: Status: Active Protocol: Document 05/17/22 09:48 AMB (Rec: 05/17/22 10:29 AMB [id number]) Current Condition History of Current Condition Onset Date chronic Current Complaints low back pain History of Current Condition about 6 months ago. Wants to be able to walk better now that she is no longer a caregiver. Has a long history of lumbar stenosis. Doesn't feel like surgery is an option because she lives alone. Neuropathy from diabetes in bilateral feet up to mid luis. Difficulty walking, walks with a walker if more than a couple hundred feet. Does have incontinence fecal and urinary incontinence. Does walk with a small dog and the walker. 1 step to enter without railing then one with a railing to enter the house. Standing and walking is very challenging. Does have a daughter who lives in [place]. PT-OP-C Subjective Start: 05/16/22 21:48 Freq: Status: Active Protocol: Document 08/02/22 13:31 AMB (Rec: 08/02/22 14:32 AMB [id number]) OP-PT Subjective Patient Comments Patient Comments Pt reports she thinks her balance is improving. PT-OP-E Functional Tests Start: 05/16/22 21:48 Freq: Status: Active Protocol: Document 06/28/22 09:08 SP (Rec: 06/28/22 09:50 SP [id number]) Functional Tests 6 Minute Walk Test Distance 739 ft Device Used B trek poles (20-50% WB trek poles) Comments 4 min lateral trunk shift, brief 15 sec stand break Timed Up and Go (TUG) Score 16s, 15s, 14s Comments SB wt shift, cued core TUG Impairment Rating 40 to <60% Impaired (Score 14- 15) PT-OP-G Mobility & Gait Start: 05/16/22 21:48 Freq: Status: Active Protocol: Document 05/17/22 09:45 AMB (Rec: 05/17/22 16:18 AMB [id number]) OP Gait Assessment Comments Gait Comments Pt without lumbar rotation that she compensates for with severe bilateral Trendelenburg gait and hinging at the lumbar spine. PT-OP-M Strength Start: 05/16/22 21:48 Freq: Status: Active Protocol: Document 05/17/22 09:45 AMB (Rec: 05/17/22 16:18 AMB [id number]) Hip Strength Hip Manual Muscle Testing Right Flexion (L2) 4 Good Extension (S1) 3 Fair Abduction 3+ Fair+ Left Flexion (L2) 4 Good Extension (S1) 3 Fair Abduction 4- Good- Knee Strength Knee Manual Muscle Testing Right Flexion (S2) 4+ Good+ Extension (L3) 4 Good Left Flexion (S2) 4+ Good+ Extension (L3) 4 Good Ankle/Foot Strength Ankle and Foot Manual Muscle Testing Right Dorsiflexion (L4) 4 Good Plantarflexion (S1) 4- Good- Left Dorsiflexion (L4) 4 Good Plantarflexion (S1) 4- Good- PT-OP-Q Treatments Start: 05/16/22 21:48 Freq: Status: Active Protocol: Document 08/02/22 13:31 AMB (Rec: 08/02/22 14:32 AMB [id number]) Cardio Equipment Recumbent Elliptical (Biodex) Duration (Minutes) 10 Resistance 5 Seat Position in 7 (see 6) Other UEs, LEs 50-55 RPMs (end tx) Gym Equipment Shuttle Recovery unilateral squat Details good knee alignment lateral hip abd fac Resistance 37# (1 new band) Reps/Time 30 reps each Shuttle Balance 1 Details WBOS, NBOS, stagger Reps/Duration 10 min- Red Comments WBOS: HTs, EC 20 sec a/p and m/l stance *Cues for elongated posture, core/scap complex fac and CORNELIUS full foot equad BLE more wt shift into front ft in stagger stance imrproved stability. CG-10%A as needed Therapeutic Exercises Supine Exercises Pelvic Tilt Supine Exercise Name AP pelvic tilts, HEP Resistance AROM Reps/Minutes 10 SH x10 Comments supine & standing TA Marches Reps/Minutes 2x10 Comments improved lift, progressed to SLR lower trunk rotation Supine Exercise Name on ball Side bilateral Reps/Minutes x 10 Comments Feet together Glute Supine Exercise Name Glute sets Side bilateral Reps/Minutes 2 x 10 Comments Attempted bridges, stength deficit unable at this time Marches Supine Exercise Name Core stabilization with gentle marches Reps/Minutes 2 x 10 Comments Supine TA Supine Exercise Name TA activation SLR Reps/Minutes 8 reps limited weakness hip flex/groin tension Comments VC for breathwork, and gentle draw in Standing Exercises step ups Standing Exercise Name repeated added to HEP Side bilateral Equipment Used HR Reps/Minutes x10 reps each side Comments cued elongated posture and opp UE support- improved glut fac hurdles Standing Exercise Name step to lateral, receiprocal fwd Equipment Used rail 10>30% opp UE (1) Reps/Minutes 2 laps each direction Comments good knee/hip flexion, cued TA elongation posturing for SLS advance opp LE sit to stand Equipment Used floor, blue mat Reps/Minutes 5 reps each surface Comments mesh chair- good form PT-OP-T Assessment and Plan Start: 05/16/22 21:48 Freq: Status: Active Protocol: Document 08/02/22 13:31 AMB (Rec: 08/02/22 14:32 AMB [id number]) Physical Therapy Assessment Goals Three Impairment HEP Short Term Goal (STG) Akanksha will be independent with a HEP for her core and LE strengthening 06/28/22: Pelvic tilts x5 add SLR, SKTC, Clamshell, STS, STG Duration 5 weeks Two Impairment Pain Short Term Goal (STG) Akanksha will stand for 5 minutes without an increase in back pain. 06/28/22: pt reports sometimes. Has been working in yard 2 hrs 5-10 min before needs to sit rest and work from sitting . STG Duration 6 weeks progressing 06/28/22 Carbon Coating Machine Operator Goal (LTG) Akanksha will walk her dog with her walker for 10 minutes without an increase in back pain. LTG Duration MET One Impairment Gait Short Term Goal (STG) Akanksha will improve her timed up and go time to at least 13 seconds 06/28/22: progressins, 15, 14s. STG Duration 6 weeks progressing 06/28/22 Carbon Coating Machine Operator Goal (LTG) Akanksha will improve her gait so that she can walk for 6 minutes without an increase in back pain. 06/28/22: progressin ft in 6 min using B Trekpoles. LTG Duration 12 weeks Progressing 06/28/22 Assessment Summary Assessment Pt is noticing improved balance since starting PT. Back continues to be problematic at times with standing and walking. Pt will continue to benefit from more PT to finalize HEP for both core, LE strength and balance. Physical Therapy Plan Frequency and Duration Frequency of Treatment 2x/Week Duration of treatment (weeks) 12 Plan of Care Start Date 05/18/22 Plan of Care End Date 08/09/22 Therapeutic Interventions Therapeutic Interventions Balance Training,Gait Training ,Home Exercise Program,Manual Therapy,Neuromuscular Re- education,Self-Care/Home Management,Therapeutic Activities,Therapeutic Exercises Next Visit Focus/Plan Next Note Type Treatment Note Next Visit Plan New POC in 2 visits recheck added TB clam, step up . Add TA heel slide & april. POC: Continue trek pole use, hip abd stren, core fac. before progress toward personal goal treadmill training for cuing on reducing trunk lean and circumduction and improving trunk rotation. POC: continue with hip strengthening, consider positions to reduce stenosis pain (standing increases pain quickly). Core stabilization.
--- NOTE | 2022-08-04 11:45 | PT.OTN ---
Current Diagnoses Spinal stenosis, lumbar region without neurogenic claudication (08/04/22) Dorsalgia, unspecified (08/04/22) Physical Therapy Treatment Note PT-OP-A Visit Information Start: 05/16/22 21:48 Freq: Status: Active Protocol: Document 08/04/22 10:48 SP (Rec: 08/04/22 11:38 SP [id number]) Out-Patient Physical Therapy Visit Information Visit Information Visit Type Treatment Note Visit Start Time 10:48 Visit Stop Time 11:45 Total Visit Minutes 57 Visit Number 18 Number of SEGMENTAL WALL INSTALLER Visits 1 PT-OP-B Current Condition Start: 05/16/22 21:48 Freq: Status: Active Protocol: Document 05/17/22 09:48 AMB (Rec: 05/17/22 10:29 AMB [id number]) Current Condition History of Current Condition Onset Date chronic Current Complaints low back pain History of Current Condition about 6 months ago. Wants to be able to walk better now that she is no longer a caregiver. Has a long history of lumbar stenosis. Doesn't feel like surgery is an option because she lives alone. Neuropathy from diabetes in bilateral feet up to mid luis. Difficulty walking, walks with a walker if more than a couple hundred feet. Does have incontinence fecal and urinary incontinence. Does walk with a small dog and the walker. 1 step to enter without railing then one with a railing to enter the house. Standing and walking is very challenging. Does have a daughter who lives in [place]. PT-OP-C Subjective Start: 05/16/22 21:48 Freq: Status: Active Protocol: Document 08/04/22 10:48 SP (Rec: 08/04/22 11:38 SP [id number]) OP-PT Subjective Patient Comments Patient Comments Pt reports feeling more confident in HEP and wanting continue on own and gym. PT-OP-E Functional Tests Start: 05/16/22 21:48 Freq: Status: Active Protocol: Document 06/28/22 09:08 SP (Rec: 06/28/22 09:50 SP [id number]) Functional Tests 6 Minute Walk Test Distance 739 ft Device Used B trek poles (20-50% WB trek poles) Comments 4 min lateral trunk shift, brief 15 sec stand break Timed Up and Go (TUG) Score 16s, 15s, 14s Comments SB wt shift, cued core TUG Impairment Rating 40 to <60% Impaired (Score 14- 15) PT-OP-G Mobility & Gait Start: 05/16/22 21:48 Freq: Status: Active Protocol: Document 05/17/22 09:45 AMB (Rec: 05/17/22 16:18 AMB [id number]) OP Gait Assessment Comments Gait Comments Pt without lumbar rotation that she compensates for with severe bilateral Trendelenburg gait and hinging at the lumbar spine. PT-OP-M Strength Start: 05/16/22 21:48 Freq: Status: Active Protocol: Document 05/17/22 09:45 AMB (Rec: 05/17/22 16:18 AMB [id number]) Hip Strength Hip Manual Muscle Testing Right Flexion (L2) 4 Good Extension (S1) 3 Fair Abduction 3+ Fair+ Left Flexion (L2) 4 Good Extension (S1) 3 Fair Abduction 4- Good- Knee Strength Knee Manual Muscle Testing Right Flexion (S2) 4+ Good+ Extension (L3) 4 Good Left Flexion (S2) 4+ Good+ Extension (L3) 4 Good Ankle/Foot Strength Ankle and Foot Manual Muscle Testing Right Dorsiflexion (L4) 4 Good Plantarflexion (S1) 4- Good- Left Dorsiflexion (L4) 4 Good Plantarflexion (S1) 4- Good- PT-OP-Q Treatments Start: 05/16/22 21:48 Freq: Status: Active Protocol: Document 08/04/22 10:48 SP (Rec: 08/04/22 11:38 SP [id number]) Cardio Equipment Recumbent Elliptical (BiodEcoIntense) Duration (Minutes) 10 Resistance 5 Seat Position in 7 (see 6) Other UEs, LEs 50-55 RPMs (end tx) Gym Equipment Cable Column (Body Solid) Hip Adduction Resistance 32.5>40 Reps/Time 12 x3 hip abd Details vc for stabilization during exercise and not to compensate with back Resistance 32.5> 40 Reps/Time 20, 11, 10 reps Shuttle Recovery unilateral squat Details good knee alignment lateral hip abd fac Resistance 37# (1 new band) Reps/Time 30 reps each BLE Resistance 50 (both new) Reps/Time x30 Therapeutic Exercises Supine Exercises TA Supine Exercise Name TA activation SLR Reps/Minutes 2x12 reps Comments VC for breathwork, and gentle draw in Gait Training Gait Activity trek poles Description 6MWT Device Used B trek poles Level of Assistance S Distance/Duration 757 ft- improvement 18 ft from last assess Treatment Focus sequencing trek poles, trunk center posturing, abd / core fac incr stance Comments good sequencing, occasional cue review posturing elongation and TA, level pelvis, still 20-30% UE pressure on poles. She reports feels better endurance and not as tired. Neuro Re-Education Treatment Balance Activities TUG Reps/Duration 14s, 13s, 12s Comments cued increase stride, arms swing PT-OP-T Assessment and Plan Start: 05/16/22 21:48 Freq: Status: Active Protocol: Document 08/04/22 10:48 SP (Rec: 08/04/22 11:38 SP [id number]) Physical Therapy Assessment Goals Three Impairment HEP Short Term Goal (STG) Akanksha will be independent with a HEP for her core and LE strengthening 06/28/22: Pelvic tilts x5 add SLR, SKTC, Clamshell, STS, 08/04/22: reviewed 06/28 HEP STG Duration 5 weeks Two Impairment Pain Short Term Goal (STG) Akanksha will stand for 5 minutes without an increase in back pain. 06/28/22: pt reports sometimes. Has been working in yard 2 hrs 5-10 min before needs to sit rest and work from sitting . 08/04/22: almost met: reports most days can stand for 5 min but are time needs to sit on stool rest. STG Duration 6 weeks progressing 08/04/22 Skilled Nursing Goal (LTG) Akanksha will walk her dog with her walker for 10 minutes without an increase in back pain. LTG Duration MET One Impairment Gait Short Term Goal (STG) Akanksha will improve her timed up and go time to at least 13 seconds 06/28/22: progressins, 15, 14s. 08/04/22: 14s, 13s, 12 s, improved with cue increase stride, arms swing STG Duration 6 weeks progressing 08/04/22 Skilled Nursing Goal (LTG) Akanksha will improve her gait so that she can walk for 6 minutes without an increase in back pain. 06/28/22: progressin ft in 6 min using B Trekpoles. 08/04/22: progressing distance with B trek poles no stop rest 757 ft LTG Duration 12 weeks Progressing 08/04/22 Assessment Summary Assessment Pt responded well to ther ex, improvement in endurance gait with less UE support, doing well with HEP and today better understanding use of gym equipment, believes ready to finalilze HEP with PT next tx. Physical Therapy Plan Frequency and Duration Frequency of Treatment 2x/Week Duration of treatment (weeks) 12 Plan of Care Start Date 05/18/22 Plan of Care End Date 08/09/22 Therapeutic Interventions Therapeutic Interventions Balance Training,Gait Training ,Home Exercise Program,Manual Therapy,Neuromuscular Re- education,Self-Care/Home Management,Therapeutic Activities,Therapeutic Exercises Next Visit Focus/Plan Next Note Type Treatment Note Next Visit Plan 1 more visit then DC continue on own and gym, pool, suggest senior center classes. Recheck HEP finalize.
--- NOTE | 2022-08-09 10:47 | PT.OTN ---
Current Diagnoses Spinal stenosis, lumbar region without neurogenic claudication (08/09/22) Dorsalgia, unspecified (08/09/22) Physical Therapy Treatment Note PT-OP-A Visit Information Start: 05/16/22 21:48 Freq: Status: Active Protocol: Document 08/09/22 12:25 AMB (Rec: 08/09/22 12:52 AMB [id number]) Out-Patient Physical Therapy Visit Information Visit Information Visit Type Treatment Note Visit Start Time 12:00 Visit Stop Time 12:45 Total Visit Minutes 45 Visit Number 19 PT-OP-B Current Condition Start: 05/16/22 21:48 Freq: Status: Active Protocol: Document 05/17/22 09:48 AMB (Rec: 05/17/22 10:29 AMB [id number]) Current Condition History of Current Condition Onset Date chronic Current Complaints low back pain History of Current Condition about 6 months ago. Wants to be able to walk better now that she is no longer a caregiver. Has a long history of lumbar stenosis. Doesn't feel like surgery is an option because she lives alone. Neuropathy from diabetes in bilateral feet up to mid luis. Difficulty walking, walks with a walker if more than a couple hundred feet. Does have incontinence fecal and urinary incontinence. Does walk with a small dog and the walker. 1 step to enter without railing then one with a railing to enter the house. Standing and walking is very challenging. Does have a daughter who lives in [place]. PT-OP-C Subjective Start: 05/16/22 21:48 Freq: Status: Active Protocol: Document 08/09/22 12:25 AMB (Rec: 08/09/22 12:52 AMB [id number]) OP-PT Subjective Patient Comments Patient Comments Pt is ready for D/c. PT-OP-E Functional Tests Start: 05/16/22 21:48 Freq: Status: Active Protocol: Document 06/28/22 09:08 SP (Rec: 06/28/22 09:50 SP [id number]) Functional Tests 6 Minute Walk Test Distance 739 ft Device Used B trek poles (20-50% WB trek poles) Comments 4 min lateral trunk shift, brief 15 sec stand break Timed Up and Go (TUG) Score 16s, 15s, 14s Comments SB wt shift, cued core TUG Impairment Rating 40 to <60% Impaired (Score 14- 15) PT-OP-G Mobility & Gait Start: 05/16/22 21:48 Freq: Status: Active Protocol: Document 05/17/22 09:45 AMB (Rec: 05/17/22 16:18 AMB [id number]) OP Gait Assessment Comments Gait Comments Pt without lumbar rotation that she compensates for with severe bilateral Trendelenburg gait and hinging at the lumbar spine. PT-OP-M Strength Start: 05/16/22 21:48 Freq: Status: Active Protocol: Document 05/17/22 09:45 AMB (Rec: 05/17/22 16:18 AMB [id number]) Hip Strength Hip Manual Muscle Testing Right Flexion (L2) 4 Good Extension (S1) 3 Fair Abduction 3+ Fair+ Left Flexion (L2) 4 Good Extension (S1) 3 Fair Abduction 4- Good- Knee Strength Knee Manual Muscle Testing Right Flexion (S2) 4+ Good+ Extension (L3) 4 Good Left Flexion (S2) 4+ Good+ Extension (L3) 4 Good Ankle/Foot Strength Ankle and Foot Manual Muscle Testing Right Dorsiflexion (L4) 4 Good Plantarflexion (S1) 4- Good- Left Dorsiflexion (L4) 4 Good Plantarflexion (S1) 4- Good- PT-OP-Q Treatments Start: 05/16/22 21:48 Freq: Status: Active Protocol: Document 08/09/22 12:25 AMB (Rec: 08/09/22 12:52 AMB [id number]) Cardio Equipment Recumbent Elliptical (Biodex) Duration (Minutes) 10 Resistance 5 Seat Position in 7 (see 6) Other UEs, LEs 50-55 RPMs (end tx) Gym Equipment Cable Column (Body Solid) Hip Adduction Resistance 32.5>40 Reps/Time 12 x3 Shuttle Recovery unilateral squat Details good knee alignment lateral hip abd fac Resistance 37# (1 new band) Reps/Time 30 reps each BLE Resistance 50 (both new) Reps/Time x30 Therapeutic Exercises Standing Exercises mini squats Standing Exercise Name side step mini squat Side bilateral Equipment Used with light UE support rail Reps/Minutes 10 Comments cues for hips back posture hover toilet, PT-OP-T Assessment and Plan Start: 05/16/22 21:48 Freq: Status: Active Protocol: Document 08/09/22 12:25 AMB (Rec: 08/09/22 12:52 AMB [id number]) Physical Therapy Assessment Goals Three Impairment HEP Short Term Goal (STG) Akanksha will be independent with a HEP for her core and LE strengthening 06/28/22: Pelvic tilts x5 add SLR, SKTC, Clamshell, STS, 08/04/22: reviewed 06/28 HEP STG Duration MET Two Impairment Pain Short Term Goal (STG) Akanksha will stand for 5 minutes without an increase in back pain. 06/28/22: pt reports sometimes. Has been working in yard 2 hrs 5-10 min before needs to sit rest and work from sitting . 08/04/22: almost met: reports most days can stand for 5 min but are time needs to sit on stool rest. STG Duration NOT MET Tool Die Maker Goal (LTG) Akanksha will walk her dog with her walker for 10 minutes without an increase in back pain. LTG Duration MET One Impairment Gait Short Term Goal (STG) Akanksha will improve her timed up and go time to at least 13 seconds 06/28/22: progressins, 15, 14s. 08/04/22: 14s, 13s, 12 s, improved with cue increase stride, arms swing STG Duration MET Half-Way Goal (LTG) Akanksha will improve her gait so that she can walk for 6 minutes without an increase in back pain. 06/28/22: progressin ft in 6 min using B Trekpoles. 08/04/22: progressing distance with B trek poles no stop rest 757 ft LTG Duration PROGRESS MADE Assessment Summary Assessment Akanksha feels ready for discharge . She will continue to exercise in the pool and at home. She has her exercises and we spent time today reviewing and putting them all one one page so they are well organized for her. She made progress with most of her goals, although her gait is still challenged by her stenosis. Physical Therapy Plan Frequency and Duration Frequency of Treatment 2x/Week Duration of treatment (weeks) 12 Plan of Care Start Date 05/18/22 Plan of Care End Date 08/09/22 Therapeutic Interventions Therapeutic Interventions Balance Training,Gait Training ,Home Exercise Program,Manual Therapy,Neuromuscular Re- education,Self-Care/Home Management,Therapeutic Activities,Therapeutic Exercises Discharge Physical Therapy Discharge Reasons Goals Met Next Visit Focus/Plan Next Note Type Treatment Note Next Visit Plan 1 more visit then DC continue on own and gym, pool, suggest senior center classes. Recheck HEP finalize.
== END 2022-08-18 09:54 | disposition home or self-care (01) ==
LOC: PHYS 12:00
PROVIDERS: Family Provider Family Medicine; PCP Family Medicine; Referring Provider Family Medicine; Visit Provider Family Medicine
DX: M48.061 Spinal stenosis, lumbar region without neurogenic claudication (principal); M54.9 Dorsalgia, unspecified
CPT/HCPCS: 97110; 97112; 97116; 97140; 97161

== ENCOUNTER → 2022-09-20 13:12 | Outpatient (CLI) | payer MEDICARE, OTHER, SELFPAY ==
[2018-05-16 15:12] VITALS: BMI 42.5
--- NOTE | 2022-09-20 13:13 | DI.MRI.S_ITS ---
PROCEDURE: MR LUMBAR SPINE WO CON INDICATIONS: routine imaging to evaluate spinal stenosis progress TECHNIQUE: Noncontrast sagittal T1 spin echo and T2 fast echo, coronal T2, sagittal STIR, and T2 fast spin echo through the lumbar spine. COMPARISON: [facility], , L-SPINE WITHOUT CONTRAST, 05/27/2016, 16:22. FINDINGS: Image quality: Excellent. Alignment and Curvature: 5 lumbar type vertebral bodies are present by plain film. Moderate leftward curvature of the lumbar spine. Loss of normal lumbar lordosis. 3 mm of retrolisthesis of L1 on L2. 7 mm of retrolisthesis of L2 on L3. 5 mm of retrolisthesis of L3 on L4. 4 mm of anterolisthesis of L4 on L5. 4 mm of retrolisthesis of L5 on S1. Bone Marrow: Marrow is of normal overall signal. No acute vertebral body compression fractures. Moderate reactive signal within the endplates adjacent to the L1-L2, L2-L3, L3-L4, L4-L5, and L5-S1 intervertebral discs. Mild reactive signal within the remaining lower thoracic endplates. Spinal Cord: Conus medullaris terminates at the lower L1 level. Visualized cord demonstrates normal signal and size. Paraspinous Soft Tissues: No paravertebral masses. T12-L1: Moderate disc desiccation. Mild disc height loss and diffuse disc bulge. Mild canal stenosis. No foraminal stenosis . No significant change. L1-L2: Severe disc height loss and desiccation. Mild diffuse disc bulge. Mild facet and ligamentum flavum hypertrophy. Mild epidural lipomatosis. Mild canal stenosis. Mild bilateral foraminal stenosis. No significant change. L2-L3: Moderate disc height loss and desiccation. Mild diffuse disc bulge. Mild facet and ligamentum flavum hypertrophy. Mild epidural lipomatosis. Mild canal stenosis. Moderate right greater than left foraminal stenosis. No significant change. L3-L4: Severe disc height loss and desiccation. Mild diffuse disc bulge/osteophyte. Mild facet and ligamentum flavum hypertrophy. Mild epidural lipomatosis. Severe canal stenosis. Moderate bilateral foraminal stenosis. No significant change. L4-L5: Severe disc height loss and desiccation. Mild diffuse disc bulge. Moderate facet and ligamentum flavum hypertrophy. Mild epidural lipomatosis. Increased, severe canal stenosis. Increased, moderate subarticular foraminal stenosis bilaterally. L5-S1: Moderate disc height loss and desiccation. Moderate diffuse disc bulge with superimposed broad-based left far lateral protrusion. Moderate bilateral facet hypertrophy. Mild canal stenosis. Severe left and moderate to severe right foraminal stenosis, increased from the prior examination. Left greater than right L5 nerve root compression. IMPRESSION: 1. Multilevel degenerative disc and facet disease, as well as ligamentum flavum hypertrophy and epidural lipomatosis. 2. Multilevel canal stenoses, worst at L3-L4 and L4-L5 where there are severe canal stenoses. 3. Multilevel foraminal stenoses, worst at L5-S1 where there is associated intraforaminal nerve root compression. Recommend correlation with clinical symptoms to ascertain relevance of this finding. Dictated by: Nacho Kelley M.D. on 09/20/2022 at 16:20 Approved by: Nacho Kelley M.D. on 09/20/2022 at 16:25
== END ==
PROVIDERS: Family Provider Family Medicine; PCP Family Medicine; Referring Provider Family Medicine; Visit Provider Family Medicine
DX: M48.061 Spinal stenosis, lumbar region without neurogenic claudication (principal); M48.07 Spinal stenosis, lumbosacral region; M51.36 Other intervertebral disc degeneration, lumbar region; M51.37 Other intervertebral disc degeneration, lumbosacral region; M47.816 Spondylosis without myelopathy or radiculopathy, lumbar region; M47.817 Spondylosis without myelopathy or radiculopathy, lumbosacral region
CPT/HCPCS: 72148

== ENCOUNTER → 2022-10-25 10:03 | Outpatient (CLI) | payer MEDICARE, OTHER, SELFPAY ==
[2018-05-16 15:12] VITALS: BMI 42.5
[2022-10-25 12:34] LABS: TSH w/ Reflex to FT4 < 0.02 uIU/mL (0.47-4.68)
[2022-10-25 13:03] LABS: Free T4, Direct Thyroxine 1.87 ng/dL (0.78-2.19)
== END ==
PROVIDERS: Family Provider Family Medicine; PCP Family Medicine; Referring Provider Family Medicine; Visit Provider Family Medicine
DX: E03.9 Hypothyroidism, unspecified (principal); E83.52 Hypercalcemia
CPT/HCPCS: 36415; 84439; 84443

== ENCOUNTER → 2023-04-14 | Outpatient (CLI) | payer MEDICARE, OTHER, SELFPAY ==
[2018-05-16 15:12] VITALS: BMI 42.5
--- NOTE | 2023-04-14 15:31 | DI.MG.S_ITS ---
BILATERAL DIGITAL SCREENING MAMMOGRAM 3D/2D WITH CAD: 04/14/2023 CLINICAL: Routine screening. Personal history of right breast cancer. Comparison is made to exams dated: 11/16/2021 mammogram, 05/08/2019 mammogram, and 04/17/2018 mammogram - [facility]. Both breasts are heterogeneously dense, which may obscure small masses (category c / 51-75% glandular tissue). Current study was also evaluated with a Computer Aided Detection (CAD) system. There are benign post operative findings in the right breast. No significant masses, calcifications, or other findings are seen in either breast. There has been no significant interval change. IMPRESSION: BENIGN There is no mammographic evidence of malignancy. A 1 year screening mammogram is recommended. This exam was interpreted at Station ID: [id number]. NOTE: For mammograms, a report in lay terms will be sent to the patient. Approximately 15% of breast malignancies will not be visualized mammographically. In the management of a palpable breast mass, a negative mammogram must not discourage biopsy of a clinically suspicious lesion. Electronically Signed By: Lilian Lozada M.D., PH.D eb/penrad:04/15/2023 23:03:41 letter sent: Normal Exam ACR BI-RADS Category 2: Benign Finding(s) 3342F
== END ==
LOC: MAMMO 15:30
PROVIDERS: Family Provider Family Medicine; PCP Family Medicine; Referring Provider Family Medicine; Visit Provider Family Medicine
DX: Z12.31 Encounter for screening mammogram for malignant neoplasm of breast (principal); Z85.3 Personal history of malignant neoplasm of breast; R92.333 Mammographic heterogeneous density, bilateral breasts
CPT/HCPCS: 77063; 77067

== ENCOUNTER → 2024-08-15 12:25 | Outpatient (CLI) | payer MEDICARE, OTHER, SELFPAY ==
[2018-05-16 15:12] VITALS: BMI 42.5
--- NOTE | 2024-08-15 12:26 | DI.MG.S_ITS ---
MM screening mammo BI: 08/15/2024. BI-RADS: 2 CLINICAL: 79-year old female for bilateral screening mammogram. No Tyrer-Cuzick risk score calculation due to the patient's personal history of breast cancer. Patient reports a history of right breast carcinoma diagnosed at age 72. Status-post right lumpectomy with radiation therapy. PRIOR EXAMS 04/14/2023, 11/16/2021, 05/08/2019, 04/17/2018. MAMMOGRAPHY TECHNIQUE: 2D and 3D (tomosynthesis) digital mammographic views obtained, with additional images as needed for full coverage. Current study was also evaluated with a Computer Aided Detection (CAD) system. DENSITY C. The breasts are heterogeneously dense, which may obscure small masses. MAMMOGRAPHY FINDINGS Right: Benign-appearing post-surgical changes noted on the right. There are no suspicious masses, calcifications, or other findings in the breast. No significant change from comparison. Left: No suspicious mass, asymmetry, microcalcification, or other abnormality seen. No significant change from comparison. IMPRESSION: Right * No evidence of malignancy with benign findings. Left * No evidence of malignancy. RECOMMENDATIONS Bilateral * Annual screening mammography. OVERALL ASSESSMENT CATEGORY BI-RADS-2: Benign. [employer] recommends annual screening mammography beginning at age 40 for women with average risk of breast cancer. PRELIMINARILY ELECTRONICALLY SIGNED: Nina Rand M.D. on 08/15/2024 at 04:52:40 PM PT ELECTRONICALLY SIGNED: Nina Rand M.D. on 08/17/2024 at 05:20:49 PM PT Interpreting Station ID: [id number]
== END ==
PROVIDERS: Family Provider Family Medicine; PCP Family Medicine; Referring Provider Family Medicine; Visit Provider Family Medicine
DX: Z12.31 Encounter for screening mammogram for malignant neoplasm of breast (principal); Z85.3 Personal history of malignant neoplasm of breast; R92.333 Mammographic heterogeneous density, bilateral breasts
CPT/HCPCS: 77063; 77067

== ENCOUNTER → 2024-12-26 10:17 | Outpatient (CLI) | payer MEDICARE, OTHER, SELFPAY ==
[2018-05-16 15:12] VITALS: BMI 42.5
[2024-12-26 11:10] LABS: Hematocrit 45.4 % (36-46); Hemoglobin 15.6 g/dL (12.0-16.0); Mean Corpuscular HGB Conc 34.3 % (30-36); Mean Corpuscular Hemoglobin 32.1 PG (26-34); Mean Corpuscular Volume 93.7 fL (80-100); Platelet Count 272 X10^3/uL (150-400)
[2024-12-26 11:31] LABS: Alanine Aminotransferase 19 IU/L (<35); Albumin 4.7 g/dL (3.5-5.0); Albumin Globulin Ratio 1.6 (1.0-2.8); Alkaline Phosphatase 91 U/L (38-126); Blood Urea Nitrogen 20 mg/dL (7-17); Calcium 10.2 mg/dL (8.4-10.2); Carbon Dioxide 26 mmol/L (22-32); Chloride 103 mmol/L (98-107); Cholesterol 207 mg/dL (140-199); Estimated Glomerular Filt Rate > 60 mL/min (>60); Globulin 3.0 g/dL (1.7-4.1); Glucose 105 mg/dL (70-99); HDL Cholesterol 102 mg/dL (40-60); HEMOLYSIS < 15 (0-50); Potassium 4.7 mmol/L (3.4-5.1); Sodium 139 mmol/L (137-145); Total Protein 7.7 g/dL (6.3-8.2); Triglycerides 176 mg/dL (35-150)
[2024-12-26 12:00] LABS: TSH w/ Reflex to FT4 < 0.02 uIU/mL (0.47-4.68)
[2024-12-26 12:06] LABS: Ferritin 32 ng/mL (11-264)
[2024-12-26 12:27] LABS: Free T4, Direct Thyroxine 1.89 ng/dL (0.78-2.19)
[2024-12-27 08:12] LABS: CRP, High Sensitivity 4.15 mg/L (0.00-3.00)
== END ==
PROVIDERS: Family Provider Family Medicine; PCP Family Medicine; Referring Provider Family Medicine; Visit Provider Family Medicine
DX: E11.8 Type 2 diabetes mellitus with unspecified complications (principal); I10 Essential (primary) hypertension; E03.9 Hypothyroidism, unspecified; E66.01 Morbid (severe) obesity due to excess calories; R53.83 Other fatigue
CPT/HCPCS: 36415; 80053; 80061; 82728; 84439; 84443; 85027; 86140